=== PATIENT | male | born 1975 | race Caucasian/White ===

== ENCOUNTER 2018-01-24 19:35 | Emergency (ER) | payer OTHER ==
[2018-01-24] MEDS ORDERED: MAG HYDROX/AL HYDROX/SIMETH 30 ML UDC PO STA (20:14)
[2018-01-24] MEDS ORDERED: IBUPROFEN 800 MG TABLET PO STA (20:14)
--- NOTE | 2018-01-24 20:18 | ED Physician Documentation ---
PD HPI LOWER EXT INJURY - Stated complaint Stated Complaint: R KNEE PX - Chief complaint Chief Complaint: Ext Problem - History obtained from History obtained from: Patient - History of Present Illness PD HPI LOW EXT INJURY LOCATION: Right, Knee Type of injury: Other (No recent injury.) Timing - onset: Yesterday Worsened by: Moving, Other (Flexion) Associated symptoms: No: Swelling Similar symptoms before: Diagnosis (Prior history of knee injury, 2009, thought to be meniscus degeneration.) - Additional information Additional information: The patient is a 42-year-old male who presents with right knee pain. The pain started yesterday without any specific injury. He describes it as a sharp stabbing pain that is worse with bending his knee. He has a past history of knee injury in 2009, for which he has undergone MRI evaluation that he thinks showed a meniscus injury. While in triage he developed substernal chest pain. The chest pain has been subsiding rapidly over the past 10 minutes. He denies any associated shortness of breath, nausea or vomiting. He states that he has a history of similar episodes of chest pain with anxiety attacks. Review of Systems Constitutional: denies: Fever Nose: denies: Congestion Throat: denies: Sore throat Cardiac: reports: Chest pain / pressure. denies: Palpitations Respiratory: denies: Dyspnea, Cough GI: denies: Abdominal Pain, Nausea, Vomiting : denies: Dysuria Skin: denies: Rash Musculoskeletal: reports: Extremity pain (Right knee). denies: Extremity swelling, Joint swelling Neurologic: denies: Focal weakness, Numbness, Headache PD PAST MEDICAL HISTORY - Past Medical History Neuro: Head injury GI: GERD : Kidney stones Psych: Anxiety, Post traumatic stress disorder Musculoskeletal: Osteoarthritis, Chronic back pain - Allergies Allergies/Adverse Reactions: Allergies Allergy/AdvReac Type Severity Reaction Status Date / Time No Known Drug Allergies Allergy Verified 01/24/18 19:44 - Social History Does the pt smoke?: No Smoking Status: Never smoker Does the pt drink ETOH?: Yes Does the pt have substance abuse?: No PD ED PE NORMAL - Vitals Vital signs reviewed: Yes (Normal) - General General: Alert and oriented X 3, Well developed/nourished - HEENT HEENT: Atraumatic, Pharynx benign - Neck Neck: No JVD - Cardiac Cardiac: RRR, No murmur - Respiratory Respiratory: No respiratory distress, Clear bilaterally - Abdomen Abdomen: Soft, Non tender - Back Back: No CVA TTP - Derm Derm: No rash - Extremities Extremities: No edema, No calf tenderness / cord, Other (There is mild tenderness to palpation over the patella. There is no warmth, erythema, or swelling of the knee. There is no tenderness to palpation along the lateral or medial joint line. There is no ligamentous instability detected. He is able to fully extend and can flex to 90. Distal neurovascular is intact.) - Neuro Neuro: Alert and oriented X 3, No motor deficit, No sensory deficit Results - Vitals Vitals: Vital Signs - 24 hr 01/24/18 19:40 Temperature 36.8 C Heart Rate 106 H Respiratory 18 Rate Blood Pressure 127/77 O2 Saturation 99 Oxygen O2 Source Room air - EKG (time done) 20:00 Rate: Rate (enter#) (94) Rhythm: NSR [place]: Normal Intervals: Normal [place] QRS: Normal Ischemia: Normal ST segments Computer interpretation: Agree with computer - Rads (name of study) right knee Radiology: Prelim report reviewed, EMP read contemporaneously, See rad report ( No evidence of fracture, dislocation, or significant degenerative disease.) PD MEDICAL DECISION MAKING - ED course Complexity details: reviewed results, re-evaluated patient, considered differential, d/w patient ED course: The underlying cause of the patient's knee pain is not clearly elucidated at this time. Meniscus injury is a likely etiology. There is no clinical evidence of ligamentous injury, and x-ray of the knee is unremarkable. Treatment in the emergency department included administration of ibuprofen 800 mg orally and application of a knee immobilizer. I discussed with him the x- ray results, symptomatic treatment and outpatient follow-up, as well as potentially worrisome signs or symptoms that should prompt reevaluation in the emergency department. Regarding the transient chest pain he experienced at triage, I suspect anxiety reaction with possible gastroesophageal reflux. Electrocardiogram was performed and it is normal. I do not suspect cardiac etiology. Also his presentation is not suggestive of pulmonary embolus. - Sepsis Event Vital Signs: Vital Signs - 24 hr 01/24/18 19:40 Temperature 36.8 C Heart Rate 106 H Respiratory 18 Rate Blood Pressure 127/77 O2 Saturation 99 Oxygen O2 Source Room air Departure - Departure Disposition: 01 Home, Self Care Clinical Impression: Right knee pain Qualifiers: Chronicity: acute Qualified Code(s): M25.561 - Pain in right knee Condition: Stable Instructions: ED Meniscal Injury Knee Poss, ED Knee Pain [facility] Follow-Up: [facility] [Provider Group] Comments: Use the knee immobilizer if it provides comfort. Apply ice pack intermittently for the next 3 or 4 days. He continues ibuprofen, up to 800 mg 3 times daily for its anti-inflammatory effect. Follow up in the orthopedic clinic within 2 weeks. Call to schedule appointment. Return to the emergency department if you develop markedly increasing pain, swelling of your knee, or otherwise worsening symptoms.
--- NOTE | 2018-01-24 21:13 | XRAY Report ---
Procedure Date: 01/24/2018 Accession Number: [id number] / [id number] Procedure: XR - Knee 4 View RT CPT Code: FULL RESULT: EXAM: RIGHT KNEE RADIOGRAPHY EXAM DATE: 01/24/2018 08:48 PM. CLINICAL HISTORY: RIGHT KNEE PAIN. COMPARISON: None. TECHNIQUE: 4 views. FINDINGS: Bones: No fracture or focal bony lesion. Joints: No evidence of dislocation. There is patellar calcific tendinopathy at the tibial tuberosity. No evidence of joint effusion. Soft Tissues: No unexpected soft tissue findings. IMPRESSION: No evidence of fracture, dislocation, or significant degenerative disease. RADIA
[2018-01-24 21:31] VITALS: BP 130/90
== END 2018-01-24 21:32 | disposition home or self-care (01) ==
LOC: ED 19:35
DX: M25.561 Pain in right knee (principal); R07.89 Other chest pain; K21.9 Gastro-esophageal reflux disease without esophagitis; F41.9 Anxiety disorder, unspecified
CPT/HCPCS: 29530; 73564; 93005; 99283; A9270

== ENCOUNTER 2018-05-31 11:04 | Emergency (ER) | payer OTHER ==
[2018-05-31 11:18] VITALS: BP 132/74
[2018-05-31 11:42] LABS: BILIRUBIN,URINE NEGATIVE (NEGATIVE); GLUCOSE, URINE (UA) NEGATIVE (NEGATIVE); KETONES,URINE (UA) NEGATIVE (NEGATIVE); LEUKOCYTE ESTERASE, URINE SMALL (NEGATIVE); NITRITE,URINE NEGATIVE (NEGATIVE); OCCULT BLOOD,URINE NEGATIVE (NEGATIVE); PROTEIN,URINE NEGATIVE (NEGATIVE); UROBILINOGEN,URINE 0.2 (NORMAL) E.U./dL (NORMAL)
[2018-05-31 11:44] LABS: CLARITY,URINE CLEAR (CLEAR)
[2018-05-31 12:10] LABS: BACTERIA,URINE Rare /HPF (None Seen); MUCUS,URINE Few Strands; RBC,URINE 0-5 /HPF (0-5); SQUAMOUS EPITHELIAL CELL,UR RARE Squamous (<= Few)
[2018-05-31] MEDS ORDERED: KETOROLAC 60 MG/2 ML VIAL IM STA (12:39)
--- NOTE | 2018-05-31 13:20 | ED Physician Documentation ---
History of Present Illness - Stated complaint Stated Complaint: MALE - Chief complaint Chief Complaint: General - Additonal information Additional information: 42-year-old male presents the emergency department with complaints of dysuria a nd left testicular pain which has progressively worsened over the past several days. The patient reports a dull ache in his testicle but denies swelling or redness. The patient reports pain with urination which has progressively worsened. The patient denies discharge. The patient denies any new sexual partners or concern for a sexually transmitted infection. Symptoms are described as moderate. No other associated symptoms.No triggering factors or relieving factors. Review of Systems Constitutional: denies: Fever, Chills Eyes: denies: Discharge Ears: denies: Ear pain Throat: denies: Dental pain / toothache Cardiac: denies: Chest pain / pressure Respiratory: denies: Cough GI: denies: Abdominal Pain, Nausea : reports: Dysuria, Testicular pain. denies: Hematuria Musculoskeletal: denies: Neck pain Neurologic: denies: Generalized weakness PD PAST MEDICAL HISTORY - Past Medical History Neuro: Head injury GI: GERD : Kidney stones Psych: Anxiety, Post traumatic stress disorder Musculoskeletal: Osteoarthritis, Chronic back pain - Present Medications Home Medications: Ambulatory Orders Medication Instructions Recorded Confirmed Allopurinol 300 mg PO 05/31/18 Cephalexin [Keflex] 500 mg PO BID #20 capsule 05/31/18 Diclofenac Sodium 25 mg PO 05/31/18 Hydrochlorothiazide 12.5 mg PO 05/31/18 05/31/18 Omeprazole 20 mg PO 05/31/18 Potassium Citrate [Potassium 15 meq PO 05/31/18 Citrate ER] buPROPion [Wellbutrin Sr] 100 mg PO BID 05/31/18 05/31/18 traZODone [Desyrel] 50 mg PO HS 05/31/18 05/31/18 - Allergies Allergies/Adverse Reactions: Allergies Allergy/AdvReac Type Severity Reaction Status Date / Time No Known Drug Allergies Allergy Verified 01/24/18 19:44 - Social History Does the pt smoke?: No Smoking Status: Never smoker Does the pt drink ETOH?: Yes Does the pt have substance abuse?: No PD ED PE NORMAL - General General: Alert and oriented X 3, No acute distress - HEENT HEENT: Atraumatic, PERRL, EOMI, Ears normal - Neck Neck: Supple, no meningeal sign - Cardiac Cardiac: RRR - Respiratory Respiratory: No respiratory distress - Derm Derm: Normal color - Extremities Extremities: No deformity - Neuro Neuro: Alert and oriented X 3, Normal speech - Psych Psych: Normal mood PD ED PE EXPANDED - Male Male : Circumcised, Skin lesions, Normal lie/cremastaric, Tenderness (The patient is tender palpation through the left testicle, there is no tenderness in the bilateral epididymis, there is no skin changes of the scrotal wall). No: Discharge, Testicular Mass Results - Vitals Vitals: Vital Signs - 24 hr 05/31/18 11:14 Temperature 37.0 C Heart Rate 86 Respiratory 16 Rate Blood Pressure 132/74 H O2 Saturation 98 Oxygen O2 Source Room air - Labs Labs: Laboratory Tests 05/31/18 11:29 Urine Color YELLOW Urine Clarity CLEAR Urine pH 7.0 Ur Specific [place] 1.025 Urine Protein NEGATIVE Urine Glucose (UA) NEGATIVE Urine Ketones NEGATIVE Urine Occult Blood NEGATIVE Urine Nitrite NEGATIVE Urine Bilirubin NEGATIVE Urine Urobilinogen 0.2 (NORMAL) Ur Leukocyte Esterase SMALL H Urine RBC 0-5 Urine WBC >25 H Ur Squamous Epith Cells RARE Squamous Urine Bacteria Rare Urine Mucus Few Strands Ur Microscopic Review INDICATED Urine Culture Comments INDICATED - Rads (name of study) US Radiology: Final report received, See rad report (IMPRESSION: Small bilateral hydroceles with no evidence of torsion. ) PD MEDICAL DECISION MAKING - ED course ED course: The patient's ultrasound shows no evidence of torsion or epididymitis. The yaneli ent's urinalysis is concerning for an infection, this could be early epididymitis given the patient's history of prior episodes of epididymitis. Presently, the patient appears appropriate for discharge with outpatient management. The patient will be started on a course of antibiotics. The patient will follow up with the [facility] for referral to urology. I discussed warning signs and recommended returning to the emergency department for any worsening or any concerns. Departure - Departure Disposition: 01 Home, Self Care Clinical Impression: Testicular pain, left Acute cystitis Qualifiers: Hematuria presence: without hematuria Qualified Code(s): N30.00 - Acute cystitis without hematuria Condition: Good Instructions: ED UTI Cystitis Male, Varicocele, ED Epididymitis Prescriptions: Cephalexin [Keflex] 500 mg PO BID #20 capsule Comments: [facility]. Please asked them to arrange for an outpatient referral to urology to further investigate your pain. Please return to the emergency department immediately for worsening symptoms or any concerns.
--- NOTE | 2018-05-31 14:18 | Ultrasound Report ---
Reason: pain Procedure Date: 05/31/2018 Accession Number: [id number] / [id number] Procedure: US - Testicle w/Doppler Limited CPT Code: FULL RESULT: EXAM: SCROTAL ULTRASOUND EXAM DATE: 05/31/2018 01:55 PM. CLINICAL HISTORY: Pain. COMPARISON: None. TECHNIQUE: Real-time scanning was performed with static images obtained. Color-flow images were utilized. FINDINGS: Right: Testis: 4.5 x 2.5 x 2.8 cm. Normal size and echotexture. No mass, calcification, or abnormal blood flow. Epididymis: 1.2 x 1.0 cm. Normal size and echotexture. No mass or abnormal blood flow. Hydrocele: Small. Varicocele: None. Left: Testis: 4.4 x 2.6 x 3.1 cm. Normal size and echotexture. No mass, calcification, or abnormal blood flow. Epididymis: 1.1 x 0.8 cm. Normal size and echotexture. No mass or abnormal blood flow. Hydrocele: Small. Varicocele: None. IMPRESSION: Small bilateral hydroceles with no evidence of torsion. RADIA
[2018-05-31] MEDS ORDERED: cephALEXin 250 MG CAPSULE PO STA (14:35)
== END 2018-05-31 15:17 | disposition home or self-care (01) ==
LOC: ED 11:04
DX: N30.00 Acute cystitis without hematuria (principal); N50.812 Left testicular pain
CPT/HCPCS: 76870; 81001; 87086; 87491; 87591; 93976; 96372; 99283; A9270; 81003

== ENCOUNTER 2018-10-02 06:08 | Emergency (ER) | payer OTHER ==
--- NOTE | 2018-10-02 06:27 | ED Physician Documentation ---
PD HPI BACK PAIN - Stated complaint Stated Complaint: LEG/BACK PX - Chief complaint Chief Complaint: Back Pain - History obtained from History obtained from: Patient - History of Present Illness Timing - onset: How many weeks ago (2) Timing - duration: Weeks Timing - details: Gradual onset, Waxing and waning Pain level now: 8 Quality: Pain, Spasm Associated symptoms: No: Fever, Weakness, Numbness, Incontinent of urine, Unable to urinate, Hematuria, Incontinent of stool Improves with: Rest Worsened by: Movement Recently seen: Not recently seen - Additional information Additional information: Patient complains of two weeks of right thigh pain, atraumatic. A few hours ago, he woke with low back pain radiating to bilateral lower extremities. Review of Systems Constitutional: reports: Reviewed and negative GI: reports: Reviewed and negative : denies: Dysuria, Frequency, Unable to Void, Incontinent, Hematuria Skin: denies: Rash Musculoskeletal: reports: Back pain, Extremity pain. denies: Neck pain Neurologic: reports: Reviewed and negative PD PAST MEDICAL HISTORY - Past Medical History Past Medical History: Yes Cardiovascular: None Respiratory: None Neuro: Head injury Endocrine/Autoimmune: None GI: GERD : Kidney stones HEENT: None Psych: Anxiety, Post traumatic stress disorder Musculoskeletal: Osteoarthritis, Chronic back pain Derm: None - Past Surgical History Past Surgical History: No - Present Medications Home Medications: Ambulatory Orders Medication Instructions Recorded Confirmed Allopurinol 300 mg PO DAILY 05/31/18 10/02/18 Diclofenac Sodium 25 mg PO DAILY 05/31/18 10/02/18 Hydrochlorothiazide 12.5 mg PO DAILY 05/31/18 10/02/18 Omeprazole 20 mg PO DAILY 05/31/18 10/02/18 Potassium Citrate [Potassium 15 meq PO DAILY 05/31/18 10/02/18 Citrate ER] buPROPion [Wellbutrin Sr] 100 mg PO BID 05/31/18 10/02/18 traZODone [Desyrel] 50 mg PO HS 05/31/18 10/02/18 Oxycodone HCl/Acetaminophen 1 - 2 each PO Q6H PRN #20 tablet 10/02/18 [Percocet 5-325 mg Tablet] Prazosin HCl 1 mg PO DAILY 10/02/18 10/02/18 diazePAM [Valium] 5 mg PO TID PRN #15 tablet 10/02/18 - Allergies Allergies/Adverse Reactions: Allergies Allergy/AdvReac Type Severity Reaction Status Date / Time No Known Drug Allergies Allergy Verified 10/02/18 06:17 - Social History Does the pt smoke?: No Smoking Status: Never smoker Does the pt drink ETOH?: Yes Does the pt have substance abuse?: No - Immunizations Immunizations are current?: Yes - POLST Patient has POLST: No PD ED PE NORMAL - Vitals Vital signs reviewed: Yes - General General: Alert and oriented X 3, Well developed/nourished, Other (appears to be in waxing and waning visibly painful distress ) - Neck Neck: Supple, no meningeal sign - Cardiac Cardiac: RRR, No murmur - Respiratory Respiratory: No respiratory distress, Clear bilaterally - Abdomen Abdomen: Soft, Non tender, Non distended - Back Back: No CVA TTP, No spinal TTP - Derm Derm: Normal color, Warm and dry - Extremities Extremities: No tenderness to palpate, Normal ROM s pain, No edema, No calf tenderness / cord - Neuro Neuro: Alert and oriented X 3, industry analyst 2-12 intact, No motor deficit, No sensory deficit Results - Vitals Vitals: Vital Signs - 24 hr 10/02/18 10/02/18 06:10 07:49 Temperature 36.0 C L Heart Rate 104 H 76 Respiratory 18 16 Rate Blood Pressure 142/80 H 136/76 H O2 Saturation 98 99 Oxygen O2 Source Room air PD MEDICAL DECISION MAKING - ED course Complexity details: reviewed results, re-evaluated patient, considered differential, d/w patient ED course: atraumatic low back pain that radiates down bilateral lower extremities. No signs or symptoms to suggest cauda equina syndrome; denies saddle anesthesia, urinary or bowel incontinence, weakness. On reevaluation, after po Decadron and Valium, IM dilaudid, patient is able to ambulate without assistance and minimal discomfort and is comfortable with discharge, will follow up with primary care provider, and return if worse in any way. Departure - Departure Disposition: 01 Home, Self Care Clinical Impression: Back pain Condition: Good Instructions: NARCOTIC, Oral, ED Sciatica Prescriptions: diazePAM [Valium] 5 mg PO TID PRN #15 tablet PRN Reason: Spasms Oxycodone HCl/Acetaminophen [Percocet 5-325 mg Tablet] 1 - 2 each PO Q6H PRN #20 tablet PRN Reason: pain Discharge Date/Time: 10/02/18 07:56
[2018-10-02] MEDS ORDERED: HYDROmorphone 1 MG/ML CARPUJECT IM STA (06:49)
[2018-10-02] MEDS ORDERED: DEXAMETHASONE 10 MG/ML VIAL PO STA (06:53)
[2018-10-02] MEDS ORDERED: CHERRY SYRUP 10 ML UDC PO ONE (06:53)
[2018-10-02] MEDS ORDERED: diazePAM 5 MG TABLET PO STA ×2 (06:53→07:01)
[2018-10-02 07:51] VITALS: BP 136/76
== END 2018-10-02 07:56 | disposition home or self-care (01) ==
LOC: ED 06:08
DX: M54.5 Low back pain (principal); G89.29 Other chronic pain
CPT/HCPCS: 96372; 99283; A9270; J1170

== ENCOUNTER 2020-08-08 19:11 | Emergency (ER) | payer OTHER ==
[2020-08-08] MEDS ORDERED: BUFFERED LIDOCAINE 10 ML SYRINGE SUBQ STA (20:23)
[2020-08-08] MEDS ORDERED: cephALEXin 250 MG CAPSULE PO STA (21:04)
[2020-08-08] MEDS ORDERED: HYDROcod/ACETAM 5/325 MG TABLET PO STA (21:04)
--- NOTE | 2020-08-08 21:09 | ED Physician Documentation ---
History of Present Illness - Stated complaint Stated Complaint: RIGHT HAND LAC - Chief complaint Chief Complaint: Laceration - Additonal information Additional information: 44-year-old right-handed male presents the emergency department for a laceration to the fat pad of his right index finger that was sustained when he was using a man and a line at home. He essentially cut the fat pad off circumferentially leaving a 1 cm round defect. Patient reports tetanus is up-to-date. He did report that he nearly fainted due to the pain. Review of Systems Constitutional: reports: Reviewed and negative Ears: reports: Reviewed and negative Nose: reports: Reviewed and negative Cardiac: reports: Reviewed and negative Respiratory: reports: Reviewed and negative GI: reports: Reviewed and negative : reports: Reviewed and negative Skin: reports: Laceration (s) (right index finger) PD PAST MEDICAL HISTORY - Past Medical History Cardiovascular: None Respiratory: None Neuro: Head injury Endocrine/Autoimmune: None GI: GERD : Kidney stones HEENT: None Psych: Anxiety, Post traumatic stress disorder Musculoskeletal: Osteoarthritis, Chronic back pain Derm: None - Past Surgical History Past Surgical History: No - Present Medications Home Medications: Ambulatory Orders Medication Instructions Recorded Confirmed Hydrochlorothiazide 12.5 mg PO DAILY 05/31/18 08/08/20 Omeprazole 20 mg PO DAILY 05/31/18 08/08/20 Potassium Citrate [Potassium 15 meq PO DAILY 05/31/18 08/08/20 Citrate ER] allopurinoL [Allopurinol] 300 mg PO DAILY 05/31/18 08/08/20 buPROPion [Wellbutrin Sr] 100 mg PO BID 05/31/18 08/08/20 traZODone [Desyrel] 50 mg PO HS 05/31/18 08/08/20 Prazosin HCl 1 mg PO DAILY 10/02/18 08/08/20 HYDROcod/ACETAM 5/325 [[place] 5/325] 1 each PO BID PRN #5 08/08/20 Melatonin 6 mg PO HS 08/08/20 08/08/20 cephALEXin [Keflex] 500 mg PO Q8H #9 08/08/20 - Allergies Allergies/Adverse Reactions: Allergies Allergy/AdvReac Type Severity Reaction Status Date / Time No Known Drug Allergies Allergy Verified 08/08/20 19:39 - Social History Does the pt smoke?: No Smoking Status: Never smoker Does the pt drink ETOH?: Yes Does the pt have substance abuse?: No - Immunizations Immunizations are current?: Yes - POLST Patient has POLST: No PD ED PE EXPANDED - Extremities Extremities: Right finger(s) (Fat pad of the right index finger is missing. There is about a 1 cm round deficit with exposed subcutaneous tissue and moderate capillary arteriole bleeding.) Results - Vitals Vitals: Vital Signs - 24 hr 08/08/20 19:39 Temperature 36.5 C Heart Rate 100 Respiratory 19 Rate Blood Pressure 141/78 H O2 Saturation 100 Oxygen O2 Source Room air Procedures - Laceration (location) index finger right Length in cm: 4 Wound type: Superficial Neurovascular status: Sensory intact, Motor intact Tendon involvement: Tendon intact Anesthesia: Lidocaine 1% Wound preparation: Chlorhexadine Skin layer closure: Interrupted, Sutures - enter # (9), Other (The fat pad was brought into the emergency department with the patient and was sewn into place over the defect.) Other: Patient tolerated well, No complications PD MEDICAL DECISION MAKING - ED course Complexity details: reviewed results, re-evaluated patient, considered differential, d/w patient ED course: 44-year-old male presents emergency department for a laceration sustained this evening when using a balloon at home. He essentially amputated the fat pad from the distal tip of the index finger. Because he presented with a fat pad/skin I was able to sew this back into place using 9 sutures. Discussed with patient that there is a possibility that the skin repair may not take. In that case it would have to heal from the inside out. Patient will be given a limited prescription of [place] for pain. Emergent return precautions and wound care discussed Departure - Departure Disposition: Home, Self Care Clinical Impression: Finger laceration Qualifiers: Encounter type: initial encounter Finger: index finger Damage to nail status: without damage Foreign body presence: without foreign body Laterality: right Qualified Code(s): S61.210A - Laceration without foreign body of right index finger without damage to nail, initial encounter Condition: Stable Record reviewed to determine appropriate education?: Yes Prescriptions: cephALEXin [Keflex] 500 mg PO Q8H #9 HYDROcod/ACETAM 5/325 [[place] 5/325] 1 each PO BID PRN #5 PRN Reason: Pain Comments: Ray the fat pad of your finger was essentially amputated. We did sew it back into place. There is a possibility however that it will not take and could . In this case it will have to heal from the inside out. I have written a prescription for [place] to help with pain. Do not drive if taking this. Please keep your finger elevated for the next 48 to 72 hours. This will help with swelling and pain. Please fill the prescription for the antibiotics and take for the next 3 days. In 24 hours you may remove your dressing gently wash with warm soap and water apply antibiotic ointment nonstick gauze and then a bandage. Suture should be removed in 7 to 10 days. If at any point you have concerns of infection, fever redness swelling milky drainage or increased pain please return to the ER for a second look
[2020-08-08 21:25] VITALS: BP 131/85
== END 2020-08-08 21:23 | disposition home or self-care (01) ==
LOC: ED 19:11
DX: S61.210A Laceration without foreign body of right index finger without damage to nail, initial encounter (principal); W27.4XXA Contact with kitchen utensil, initial encounter; Y93.G1 Activity, food preparation and clean up; Y92.009 Unspecified place in unspecified non-institutional (private) residence as the place of occurrence of the external cause
CPT/HCPCS: 12042; 99281; 99282; A9270

== ENCOUNTER 2020-09-05 10:07 | Outpatient (CLI) | payer OTHER | END 2020-09-05 10:08 | disposition EMS.NT | LOC: EMS 10:07 | DX: R55 Syncope and collapse (principal) ==

== ENCOUNTER 2020-09-06 14:22 | Outpatient (CLI) | payer OTHER | END 2020-09-06 14:23 | disposition home or self-care (01) | LOC: CAM 14:22 | DX: G89.4 Chronic pain syndrome (principal) | CPT/HCPCS: 97810; 97811 ==

== ENCOUNTER 2020-09-13 13:11 | Outpatient (CLI) | payer OTHER | END 2020-09-13 13:12 | disposition home or self-care (01) | LOC: CAM 13:11 | DX: G89.4 Chronic pain syndrome (principal) | CPT/HCPCS: 97810; 97811 ==

== ENCOUNTER → 2020-09-20 | Outpatient (CLI) | payer OTHER ==
--- OUTSIDE RECORDS SUMMARY | 2020-10-03 00:01 | EXTERNAL MEDICAL SUMMARY RPT | Continuity of Care Document ---
:1975 Demographics Phone Unavailable Preferred Language Unknown Marital Status Unknown Confucianism Affiliation Unknown Race Unknown Ethnic Group Unknown Author Organization [facility] Address [address] [place] [address] Phone Social History date description facility [id number]
== END ==
LOC: CAM 16:15
DX: G89.4 Chronic pain syndrome (principal)

== ENCOUNTER 2020-10-04 16:29 | Outpatient (CLI) | payer OTHER | END 2020-10-04 16:30 | disposition home or self-care (01) | LOC: CAM 16:29 | DX: G89.4 Chronic pain syndrome (principal) | CPT/HCPCS: 97810; 97811 ==

== ENCOUNTER 2020-10-11 17:38 | Outpatient (CLI) | payer OTHER | END 2020-10-11 17:39 | disposition home or self-care (01) | LOC: CAM 17:38 | DX: G89.4 Chronic pain syndrome (principal) | CPT/HCPCS: 97813; 97814 ==

== ENCOUNTER 2020-11-01 14:34 | Outpatient (CLI) | payer OTHER | END 2020-11-01 14:35 | disposition home or self-care (01) | LOC: CAM 14:34 | PROVIDERS: ATTEND Nurse Practitioner Family | DX: G89.4 Chronic pain syndrome (principal) | CPT/HCPCS: 97813; 97814 ==

== ENCOUNTER 2020-11-08 14:12 | Outpatient (CLI) | payer OTHER | END 2020-11-08 14:13 | disposition home or self-care (01) | LOC: CAM 14:12 | PROVIDERS: ATTEND Nurse Practitioner Family | DX: G89.4 Chronic pain syndrome (principal) | CPT/HCPCS: 97810; 97811 ==

== ENCOUNTER 2020-11-15 14:15 | Outpatient (CLI) | payer OTHER | END 2020-11-15 14:16 | disposition home or self-care (01) | LOC: CAM 14:15 | PROVIDERS: ATTEND Nurse Practitioner Family | DX: G89.4 Chronic pain syndrome (principal) | CPT/HCPCS: 97811; 97813 ==

== ENCOUNTER 2020-12-06 16:29 | Outpatient (CLI) | payer OTHER | END 2020-12-06 16:30 | disposition home or self-care (01) | LOC: CAM 16:29 | PROVIDERS: ATTEND Nurse Practitioner Family | DX: G89.4 Chronic pain syndrome (principal) | CPT/HCPCS: 97813; 97814 ==

== ENCOUNTER 2020-12-13 16:26 | Outpatient (CLI) | payer OTHER | END 2020-12-13 16:27 | disposition home or self-care (01) | LOC: CAM 16:26 | PROVIDERS: ATTEND Nurse Practitioner Family | DX: G89.4 Chronic pain syndrome (principal) | CPT/HCPCS: 97813; 97814 ==

== ENCOUNTER 2022-03-13 21:48 | Emergency (ER) | payer OTHER ==
[2022-03-13 22:46] LABS: BASOPHILS # (AUTO) 0.1 10^3/uL (0.0-0.1); BASOPHILS % (AUTO) 0.7 %; EOSINOPHILS # (AUTO) 0.4 10^3/uL (0.0-0.7); EOSINOPHILS % (AUTO) 3.8 %; HGB - HEMOGLOBIN 14.1 g/dL (14.0-18.0); LYMPHOCYTES # (AUTO) 2.6 10^3/uL (1.5-3.5); LYMPHOCYTES % (AUTO) 27.7 %; MEAN CORPUSCULAR HEMOGLOBIN 29.4 pg (27.0-31.0); MEAN CORPUSCULAR HGB CONC 35.3 g/dL (32.0-36.0); MEAN CORPUSCULAR VOLUME 83.3 fL (80.0-94.0); MEAN PLATELET VOLUME 8.5 fL (7.4-11.4); MONOCYTES # (AUTO) 0.8 10^3/uL (0.0-1.0); MONOCYTES % (AUTO) 8.9 %; NEUTROPHILS # (AUTO) 5.6 10^3/uL (1.5-6.6); NEUTROPHILS % (AUTO) 58.6 %; PLT - PLATELET COUNT 302 10^3/uL (130-450); RED CELL DISTRIBUTION WIDTH 12.5 % (12.0-15.0); WHITE BLOOD COUNT 9.5 x10^3/uL (4.8-10.8)
[2022-03-13 23:00] LABS: ALBUMIN 4.4 g/dL (3.2-5.5); ALBUMIN/GLOBULIN RATIO 1.6 (1.0-2.2); BILIRUBIN,TOTAL 0.9 mg/dL (0.2-1.0); CREATININE 1.1 mg/dL (0.6-1.2); POTASSIUM 3.3 mmol/L (3.5-5.0); TOTAL PROTEIN 7.2 g/dL (6.7-8.2)
[2022-03-13 23:10] LABS: CALCIUM 9.2 mg/dL (8.5-10.3)
[2022-03-13] MEDS ORDERED: KETOROLAC 15 MG/ML VIAL IVP STA (23:22)
--- NOTE | 2022-03-13 23:25 | XRAY Report ---
PROCEDURE: Chest 1 View X-Ray INDICATIONS: L CHEST PAIN TECHNIQUE: One view of the chest was acquired. COMPARISON: None. FINDINGS: Surgical changes and devices: None. Lungs and pleura: Evaluation limited by artifact in the left lung base laterally. There are suspecte d indistinct opacities peripherally in the left lung base consistent with consolidation or atelectasi s. Right lung is clear. No definite pleural effusions. No pneumothorax. Mediastinum: Mediastinal contours appear normal. Heart size is normal. Bones and chest wall: No suspicious bony lesions. Overlying soft tissues appear unremarkable. IMPRESSION: 1. Limited study due to artifact laterally in the left lung base. 2. Suspected peripheral opacities in the left lung base which may represent consolidation or atelecta sis. Consider a repeat PA and lateral study if clinical concern persists. Reviewed by: Rei Dukes MD on 03/13/2022 11:23 PM PDT Approved by: Rei Dukes MD on 03/13/2022 11:23 PM PDT Station ID: [id number]
--- NOTE | 2022-03-14 00:27 | ED Physician Documentation ---
PD HPI CHEST PAIN - Stated complaint Stated Complaint: CHEST PX - Chief complaint Chief Complaint: Cardiac - History obtained from History obtained from: Patient - History of Present Illness Timing - onset: Today, Other (just prior to arrival) Timing - onset during: Rest - Additional information Additional information: 46-year-old male with history of obstructive sleep apnea presents by EMS from work for sudden onset sharp, stabbing, nonradiating, constant left-sided chest pain that began while at rest. Patient states that he has felt this chest pain intermittently in the past, but is never seen a doctor for it. Nothing makes it better or worse. Today was the worst it has ever been and so he called 911 and presented for evaluation. EMS gave aspirin, nitroglycerin, fentanyl. EKG NSR en route. They state the fentanyl brought the pain down from an 8 to a 5. Patient continues to endorse sharp chest pain on arrival, denies shortness of breath, cough, recent illnesses. Denies known family history of heart disease or early cardiac . Review of Systems Ten Systems: 10 systems reviewed and negative Constitutional: denies: Fever, Chills Cardiac: reports: Chest pain / pressure. denies: Palpitations, Pedal edema, Calf pain Respiratory: denies: Dyspnea, Cough, Wheezing Skin: denies: Rash, Lesions, Abrasion (s) PD PAST MEDICAL HISTORY - Past Medical History Past Medical History: Yes Cardiovascular: None Respiratory: None Neuro: Head injury Endocrine/Autoimmune: None GI: GERD : Kidney stones HEENT: None Psych: Anxiety, Post traumatic stress disorder Musculoskeletal: Osteoarthritis, Chronic back pain Derm: None - Past Surgical History Past Surgical History: No - Present Medications Home Medications: Ambulatory Orders Medication Instructions Recorded Confirmed Omeprazole 20 mg PO DAILY 05/31/18 08/08/20 Potassium Citrate [Potassium 15 meq PO DAILY 05/31/18 08/08/20 Citrate ER] allopurinoL [Allopurinol] 300 mg PO DAILY 05/31/18 08/08/20 buPROPion [Wellbutrin Sr] 100 mg PO BID 05/31/18 08/08/20 hydroCHLOROthiazide 12.5 mg PO DAILY 05/31/18 08/08/20 [Hydrochlorothiazide] traZODone [Desyrel] 50 mg PO HS 05/31/18 08/08/20 Prazosin HCl 1 mg PO DAILY 10/02/18 08/08/20 HYDROcod/ACETAM 5/325 [[place] 5/325] 1 each PO BID PRN #5 08/08/20 Melatonin 6 mg PO HS 08/08/20 08/08/20 cephALEXin [Keflex] 500 mg PO Q8H #9 08/08/20 - Allergies Allergies/Adverse Reactions: Allergies Allergy/AdvReac Type Severity Reaction Status Date / Time No Known Drug Allergies Allergy Verified 03/13/22 21:57 - Social History Does the pt smoke?: No Smoking Status: Never smoker Does the pt drink ETOH?: Yes Does the pt have substance abuse?: No - Immunizations Immunizations are current?: Yes - POLST Patient has POLST: No PD ED PE NORMAL - Vitals Vital signs reviewed: Yes - General General: Alert and oriented X 3, No acute distress, Well developed/nourished - HEENT HEENT: Atraumatic, PERRL, EOMI - Neck Neck: Supple, no meningeal sign, No bony TTP - Cardiac Cardiac: RRR, No murmur, Strong equal pulses - Respiratory Respiratory: No respiratory distress, Clear bilaterally - Abdomen Abdomen: Soft, Non tender, Non distended - Derm Derm: Normal color, Warm and dry, No rash - Extremities Extremities: No deformity, No tenderness to palpate, Normal ROM s pain, No edema - Neuro Neuro: Alert and oriented X 3, tray filler 2-12 intact, No motor deficit, No sensory deficit - Psych Psych: Normal mood, Normal affect Results - Vitals Vitals: Vital Signs - 24 hr 03/13/22 03/13/22 03/14/22 21:57 22:01 00:01 Temperature 36.5 C 36.5 C Heart Rate 90 90 87 Respiratory 16 16 12 Rate Blood Pressure 141/92 H 141/92 H 128/97 H O2 Saturation 98 98 100 03/14/22 01:07 Temperature 36.5 C Heart Rate 87 Respiratory 12 Rate Blood Pressure 128/97 H O2 Saturation 98 Oxygen O2 Source Room air - EKG (time done) 2158 Rate: Rate (enter#) (88) Rhythm: NSR [place]: Normal Intervals: Normal [place] QRS: Normal Ischemia: Normal ST segments - Labs Labs: Laboratory Tests 03/13/22 03/13/22 03/13/22 22:44 22:44 22:44 WBC 9.5 RBC 4.80 Hgb 14.1 Hct 40.0 L MCV 83.3 MCH 29.4 MCHC 35.3 RDW 12.5 Plt Count 302 MPV 8.5 Neut # (Auto) 5.6 Lymph # (Auto) 2.6 [place] # (Auto) 0.8 Eos # (Auto) 0.4 Baso # (Auto) 0.1 Absolute Nucleated RBC 0.00 Nucleated RBC % 0.0 Sodium 140 Potassium 3.3 L Chloride 103 Carbon Dioxide 29 Anion Gap 8.0 BUN 9 Creatinine 1.1 Estimated GFR (MDRD) 73 L Glucose 103 H Calcium 9.2 Total Bilirubin 0.9 AST 26 ALT 14 Alkaline Phosphatase 66 Troponin I High Sens 2.8 Total Protein 7.2 Albumin 4.4 Globulin 2.8 Albumin/Globulin Ratio 1.6 03/13/22 23:56 WBC RBC Hgb Hct MCV MCH MCHC RDW Plt Count MPV Neut # (Auto) Lymph # (Auto) [place] # (Auto) Eos # (Auto) Baso # (Auto) Absolute Nucleated RBC Nucleated RBC % Sodium Potassium Chloride Carbon Dioxide Anion Gap BUN Creatinine Estimated GFR (MDRD) Glucose Calcium Total Bilirubin AST ALT Alkaline Phosphatase Troponin I High Sens 2.9 Total Protein Albumin Globulin Albumin/Globulin Ratio PD MEDICAL DECISION MAKING - ED course Complexity details: reviewed results, re-evaluated patient, considered differential, d/w patient, d/w family ED course: Atypical sounding chest pain, patient has few risk factors for coronary disease. EKG sinus rhythm without ischemic findings. Chest x-ray shows possible inf iltrates in the left side, however there is rotation in the patient's posture, additionally patient has no symptoms that are consistent with pulmonary disease, he is denying any and all shortness of breath, cough, or pleuritic pain. Patient states he will call his PCP first thing in the morning for a follow up appointment. Counseled use of Tylenol and Motrin as needed for pain. Patient discharged with his in stable condition Departure - Departure Disposition: 01 Home, Self Care Clinical Impression: Chest pain Condition: Stable Instructions: ED Chest Pain Atypical Unkn Cause Comments: You are seen and evaluated today for chest pain. Your EKG showed no signs of heart attack, your x-ray was normal, and we took 2 troponin measurements, which were normal. Take Tylenol and Motrin as needed for pain. Please follow-up with your primary care physician. Discharge Date/Time: 03/14/22 00:55
[2022-03-14 01:05] VITALS: BP 128/97
== END 2022-03-14 00:55 | disposition home or self-care (01) ==
LOC: EDUNIT# → ED 21:48
DX: R07.9 Chest pain, unspecified (principal)
CPT/HCPCS: 36415; 80053; 84484; 85025; 93005; 96374; 99284

== ENCOUNTER 2022-06-13 18:41 | Outpatient (CLI) | payer OTHER | END 2022-06-13 18:42 | disposition critical access hospital (66) | LOC: EMS 18:41 | DX: R10.12 Left upper quadrant pain (principal) | CPT/HCPCS: A0425; A0427 ==

== ENCOUNTER 2022-06-13 19:26 | Emergency (ER) | payer OTHER ==
[2022-06-13] MEDS ORDERED: MAG HYDROX/AL HYDROX/SIMETH 30 ML UDC PO STA (19:37)
[2022-06-13] MEDS ORDERED: HYDROmorphone 1 MG/ML CARPUJECT IVP STA (19:37)
--- NOTE | 2022-06-13 19:37 | ED Physician Documentation ---
PD HPI ABD PAIN - Stated complaint Stated Complaint: ABD PX - History obtained from History obtained from: Patient, EMS - Additional information Additional information: 46-year-old gentleman with history of anxiety, depression, kidney stones, and multiple bone and joint issues presents with sudden onset left upper quadrant pain starting about an hour ago. It comes in waves. He received fentanyl, 100 mcg from EMS on the way here with improvement but not resolution. He states he is never had this before. It is not similar to prior kidney stone pain. Denies nausea, fevers, chest pain, or changes in his bowel movements. No history of chest or abdominal surgeries but has had multiple orthopedic surgeries in the past. Review of Systems Ten Systems: 10 systems reviewed and negative Constitutional: reports: Reviewed and negative Cardiac: reports: Reviewed and negative Respiratory: reports: Reviewed and negative PD PAST MEDICAL HISTORY - Past Medical History Cardiovascular: None Respiratory: None Neuro: Head injury Endocrine/Autoimmune: None GI: GERD : Kidney stones HEENT: None Psych: Anxiety, Post traumatic stress disorder Musculoskeletal: Osteoarthritis, Chronic back pain Derm: None - Past Surgical History Past Surgical History: No - Present Medications Home Medications: Ambulatory Orders Medication Instructions Recorded Confirmed Omeprazole 20 mg PO DAILY 05/31/18 08/08/20 Potassium Citrate [Potassium 15 meq PO DAILY 05/31/18 08/08/20 Citrate ER] allopurinoL [Allopurinol] 300 mg PO DAILY 05/31/18 08/08/20 buPROPion [Wellbutrin Sr] 100 mg PO BID 05/31/18 08/08/20 hydroCHLOROthiazide 12.5 mg PO DAILY 05/31/18 08/08/20 [Hydrochlorothiazide] traZODone [Desyrel] 50 mg PO HS 05/31/18 08/08/20 Prazosin HCl 1 mg PO DAILY 10/02/18 08/08/20 Melatonin 6 mg PO HS 08/08/20 08/08/20 - Allergies Allergies/Adverse Reactions: Allergies Allergy/AdvReac Type Severity Reaction Status Date / Time No Known Drug Allergies Allergy Verified 06/13/22 19:40 - Social History Does the pt smoke?: No Smoking Status: Never smoker Does the pt drink ETOH?: Yes Does the pt have substance abuse?: No - Immunizations Immunizations are current?: Yes - POLST Patient has POLST: No PD ED PE NORMAL - Vitals Vital signs reviewed: Yes - General General: Alert and oriented X 3, Other (Clutching his left upper quadrant in pain) - HEENT HEENT: PERRL, EOMI - Neck Neck: Supple, no meningeal sign, No bony TTP - Cardiac Cardiac: RRR, No murmur - Respiratory Respiratory: No respiratory distress, Clear bilaterally - Abdomen Abdomen: Normal bowel sounds, Soft, Non tender - Back Back: No CVA TTP, No spinal TTP - Derm Derm: Normal color, Warm and dry - Extremities Extremities: No edema, No calf tenderness / cord - Neuro Neuro: Alert and oriented X 3, Normal speech Results - Vitals Vitals: Vital Signs - 24 hr 06/13/22 06/13/22 06/13/22 19:36 20:24 20:31 Temperature 37.0 C Heart Rate 82 73 84 Respiratory 26 H 17 16 Rate Blood Pressure 126/78 115/75 O2 Saturation 96 98 98 06/13/22 06/13/22 06/13/22 20:39 21:28 21:36 Temperature Heart Rate 79 95 Respiratory 16 16 16 Rate Blood Pressure 123/82 H O2 Saturation 97 96 06/13/22 06/13/22 22:02 22:17 Temperature Heart Rate 82 Respiratory 17 16 Rate Blood Pressure 119/88 H O2 Saturation 96 Oxygen O2 Source Room air - EKG (time done) 2008 Rate: Rate (enter#) (86) Rhythm: NSR [place]: Normal Intervals: Normal [place] QRS: Normal Ischemia: ST elevation c/w repol - Labs Labs: Laboratory Tests 06/13/22 06/13/22 06/13/22 19:53 19:53 20:35 WBC 7.8 RBC 5.10 Hgb 14.5 Hct 43.0 MCV 84.3 MCH 28.4 MCHC 33.7 RDW 12.6 Plt Count 304 MPV 8.4 Neut # (Auto) 4.8 Lymph # (Auto) 2.1 [place] # (Auto) 0.6 Eos # (Auto) 0.3 Baso # (Auto) 0.1 Absolute Nucleated RBC 0.00 Nucleated RBC % 0.0 Sodium 136 Potassium 3.6 Chloride 102 Carbon Dioxide 26 Anion Gap 8.0 BUN 10 Creatinine 1.2 Estimated GFR (MDRD) 66 L Glucose 92 Calcium 8.8 Total Bilirubin 0.7 AST 18 ALT 13 Alkaline Phosphatase 55 Total Protein 7.3 Albumin 4.1 Globulin 3.2 Albumin/Globulin Ratio 1.3 Lipase 32 Urine Color YELLOW Urine Clarity CLEAR Urine pH 8.0 H Ur Specific [place] 1.015 Urine Protein NEGATIVE Urine Glucose (UA) NEGATIVE Urine Ketones NEGATIVE Urine Occult Blood NEGATIVE Urine Nitrite NEGATIVE Urine Bilirubin NEGATIVE Urine Urobilinogen 0.2 (NORMAL) Ur Leukocyte Esterase TRACE H Urine RBC None Seen Urine WBC 4-5 Ur Squamous Epith Cells RARE Squamous Urine Bacteria Few Ur Microscopic Review INDICATED Urine Culture Comments INDICATED PD Medical Decision Making - ED course ED course: 46-year-old gentleman with left upper quadrant pain. EKG nonischemic. Labs unremarkable with normal CBC and chemistries. Pain-free after milligram of Dilaudid and a GI cocktail. CT angiography of the abdomen pending on shift change, care to Dr. Moyer at 10 PM shift change to follow-up on same and reevaluate. Departure - Departure Clinical Impression: Acute abdominal pain Condition: Stable Instructions: ED Abdominal Pain Unkn Cause Male
[2022-06-13] MEDS ORDERED: LIDOCAINE VISCOUS 2% 15 ML UDC MM STA (19:38)
[2022-06-13 20:03] LABS: BASOPHILS # (AUTO) 0.1 10^3/uL (0.0-0.1); BASOPHILS % (AUTO) 0.6 %; EOSINOPHILS # (AUTO) 0.3 10^3/uL (0.0-0.7); EOSINOPHILS % (AUTO) 3.5 %; HGB - HEMOGLOBIN 14.5 g/dL (14.0-18.0); LYMPHOCYTES # (AUTO) 2.1 10^3/uL (1.5-3.5); LYMPHOCYTES % (AUTO) 27.1 %; MEAN CORPUSCULAR HEMOGLOBIN 28.4 pg (27.0-31.0); MEAN CORPUSCULAR HGB CONC 33.7 g/dL (32.0-36.0); MEAN CORPUSCULAR VOLUME 84.3 fL (80.0-94.0); MEAN PLATELET VOLUME 8.4 fL (7.4-11.4); MONOCYTES # (AUTO) 0.6 10^3/uL (0.0-1.0); MONOCYTES % (AUTO) 7.4 %; NEUTROPHILS # (AUTO) 4.8 10^3/uL (1.5-6.6); NEUTROPHILS % (AUTO) 61.3 %; PLT - PLATELET COUNT 304 10^3/uL (130-450); RED CELL DISTRIBUTION WIDTH 12.6 % (12.0-15.0); WHITE BLOOD COUNT 7.8 x10^3/uL (4.8-10.8)
[2022-06-13 20:15] LABS: ALBUMIN 4.1 g/dL (3.2-5.5); ALBUMIN/GLOBULIN RATIO 1.3 (1.0-2.2); BILIRUBIN,TOTAL 0.7 mg/dL (0.2-1.0); CALCIUM 8.8 mg/dL (8.5-10.3); CREATININE 1.2 mg/dL (0.6-1.2); POTASSIUM 3.6 mmol/L (3.5-5.0); TOTAL PROTEIN 7.3 g/dL (6.7-8.2)
[2022-06-13 20:43] LABS: BILIRUBIN,URINE NEGATIVE (NEGATIVE); GLUCOSE, URINE (UA) NEGATIVE (NEGATIVE); KETONES,URINE (UA) NEGATIVE (NEGATIVE); LEUKOCYTE ESTERASE, URINE TRACE (NEGATIVE); NITRITE,URINE NEGATIVE (NEGATIVE); OCCULT BLOOD,URINE NEGATIVE (NEGATIVE); PROTEIN,URINE NEGATIVE (NEGATIVE); UROBILINOGEN,URINE 0.2 (NORMAL) E.U./dL (NORMAL)
[2022-06-13 20:44] LABS: CLARITY,URINE CLEAR (CLEAR)
[2022-06-13 20:55] LABS: BACTERIA,URINE Few /HPF (None Seen); RBC,URINE None Seen /HPF (0-5); SQUAMOUS EPITHELIAL CELL,UR RARE Squamous (<= Few)
[2022-06-13] MEDS ORDERED: iohexoL-300 100 ML VIAL ONE (21:35)
[2022-06-13] MEDS ORDERED: iohexoL-300 100 ML VIAL IVP ONE (22:07)
--- NOTE | 2022-06-13 23:10 | CT Report ---
PROCEDURE: ANGIO ABDOMEN/PELVIS W INDICATIONS: luq pain CONTRAST: 100 ML OMNI 300 AT 4 ML/SAEC WITH SURESTART DELAY. TECHNIQUE: After the administration of intravenous contrast, 2.5 mm thick sections acquired from the diaphragm t o the symphysis. 10 mm maximum-intensity projection (MIP) reformats were then acquired. For radiati on dose reduction, the following was used: automated exposure control, adjustment of mA and/or kV ac cording to patient size. COMPARISON: None available. FINDINGS: Image quality: Excellent. Aorta: The visualized aorta is normal in caliber and contour. No intimal flaps to suggest dissection . Mesenteric arteries: Celiac trunk, superior and inferior mesenteric arteries appear patent. There ar e single renal arteries bilaterally which also appear patent. Right pelvic arteries: The common, external, and internal iliac arteries appear widely patent. Commo n femoral and visualized superficial and deep femoral arteries also appear widely patent. Left pelvic arteries: The common, external, and internal iliac arteries appear widely patent. Common femoral and visualized superficial and deep femoral arteries also appear widely patent. EXTRAVASCULAR SOFT TISSUES: Lung bases: There is mild dependent atelectasis. Heart: Heart is normal in size. ABDOMEN: Liver: No mass lesion. Gallbladder: Within normal limits without calcified gallstones. Biliary ducts: No biliary ductal dilatation. Pancreas: Unremarkable. Spleen: Normal in size. Adrenal Glands: No adrenal nodules. Kidneys and Ureters: No hydronephrosis. There are 3 clustered nonobstructing stones within the infer ior pole the right kidney, with the largest measuring up to 0.3 cm. On the left, there are a few clus tered nonobstructing stones also demonstrated within the inferior pole the largest measuring up to ap proximately 0.3 cm. There is a small left renal cortical cyst. Stomach and Bowel: Stomach, small bowel loops, and colon are normal in caliber and wall thickness. A ppendix is normal in appearance. Peritoneum: No abnormal intraperitoneal fluid. No free air. Ventral Wall: No hernia. Abdominal Nodes: No retroperitoneal or mesenteric adenopathy by size criteria. Vessels: Aorta and inferior vena cava are normal in size. PELVIS: Pelvic Organs: Unremarkable. Bladder: Unremarkable. Pelvic Nodes: No enlarged lymph nodes. Miscellaneous: No inguinal hernias are seen. Bones: There is moderate to severe degenerative disc disease at L5-S1 with minimal retrolisthesis. IMPRESSION: 1. No evidence of aortic aneurysm or dissection. 2. No stenosis or occlusion of the mesenteric arteries identified. 3. Bilateral nephrolithiasis without evidence of obstructive uropathy. Reviewed by: Rei Dukes MD on 06/13/2022 11:08 PM RUST Approved by: Rei Dukes MD on 06/13/2022 11:08 PM RUST Station ID: [id number]
[2022-06-14] MEDS ORDERED: HYDROmorphone 1 MG/ML CARPUJECT IVP STA (00:39)
[2022-06-14] MEDS ORDERED: oxyCODONE/ACET 5/325 Prepack 4 PO STA (00:39)
[2022-06-14 00:57] VITALS: BP 123/88
--- NOTE | 2022-06-14 11:00 | ED Physician Documentation ---
ED Addendum - Addendum Addendum: 06/14/22 10:58 Received sign out from Dr. Abad at end of his shift; please see his note for detailed H+P Briefly, patient presented c/o left flank pain which responded very well to 1mg IV dilaudid. Unremarkable CBC, ER abdominal panel, UA. CT A/P pending at time of sign-out. CTA A/P is without diagnostic or contributory finding. Incidentally note are bilateral renal stones (non-obstructing) as well as moderate/severe DJD L5-S1
== END 2022-06-14 01:40 | disposition home or self-care (01) ==
LOC: EDSEX → EDBD → EDUNIT# → ED 19:26
DX: R10.12 Left upper quadrant pain (principal)
CPT/HCPCS: 36415; 74174; 80053; 81001; 83690; 85025; 87086; 93005; 96374; 96376; 99283; 99284; A9270; J1170; Q9967; 81003

== ENCOUNTER 2022-09-05 14:11 | Emergency (ER) | payer OTHER ==
--- NOTE | 2022-09-05 14:35 | ED Physician Documentation ---
PD HPI HEADACHE - Stated complaint Stated Complaint: HEADACHE/CONFUSION - Chief complaint Chief Complaint: Neuro - History obtained from History obtained from: Patient, Family - Additional information Additional information: 46-year-old gentleman with history of remote TBI, depression, PTSD, and multiple back and joint issues presents for the evaluation of headache. He does not have a history of headaches per se or migraines. He does have chronic light sensitivity. For the last 2 weeks has had intermittent migratory headaches. Today he developed severe sudden onset headache around an hour ago while driving. It is just to the right of midline near the vertex rating to the occiput. He is more light sensitive than normal. There is no nausea with it. No neck stiffness. He felt warm but there were no measured fevers. PD PAST MEDICAL HISTORY - Past Medical History Cardiovascular: None Respiratory: None Neuro: Head injury Endocrine/Autoimmune: None GI: GERD : Kidney stones HEENT: None Psych: Anxiety, Post traumatic stress disorder Musculoskeletal: Osteoarthritis, Chronic back pain Derm: None - Past Surgical History Past Surgical History: No - Present Medications Home Medications: Ambulatory Orders Medication Instructions Recorded Confirmed Omeprazole 20 mg PO DAILY 05/31/18 08/08/20 Potassium Citrate [Potassium 15 meq PO DAILY 05/31/18 08/08/20 Citrate ER] allopurinoL [Allopurinol] 300 mg PO DAILY 05/31/18 08/08/20 buPROPion [Wellbutrin Sr] 100 mg PO BID 05/31/18 08/08/20 hydroCHLOROthiazide 12.5 mg PO DAILY 05/31/18 08/08/20 [Hydrochlorothiazide] traZODone [Desyrel] 50 mg PO HS 05/31/18 08/08/20 Prazosin HCl 1 mg PO DAILY 10/02/18 08/08/20 Melatonin 6 mg PO HS 08/08/20 08/08/20 Oxycodone HCl/Acetaminophen 1 - 2 each PO Q6H PRN #14 tablet 06/14/22 [Percocet 5-325 mg Tablet] Amoxicillin 500 mg PO TID #30 cap 09/05/22 Benzonatate [Tessalon] 200 mg PO TID PRN #20 cap 09/05/22 Oxycodone HCl/Acetaminophen 1 - 2 each PO Q6H PRN #10 tablet 09/05/22 [Percocet 5-325 mg Tablet] - Allergies Allergies/Adverse Reactions: Allergies Allergy/AdvReac Type Severity Reaction Status Date / Time No Known Drug Allergies Allergy Verified 09/05/22 14:25 - Social History Does the pt smoke?: No Smoking Status: Never smoker Does the pt drink ETOH?: Yes Does the pt have substance abuse?: No - Immunizations Immunizations are current?: Yes - POLST Patient has POLST: No PD ED PE NORMAL - Vitals Vital signs reviewed: Yes - General General: Alert and oriented X 3, Other (Slow stuttering speech but technically alert and oriented.Appears uncomfortable.) - HEENT HEENT: PERRL, EOMI - Neck Neck: Supple, no meningeal sign, No bony TTP - Cardiac Cardiac: RRR, No murmur - Respiratory Respiratory: No respiratory distress, Clear bilaterally - Abdomen Abdomen: Non tender - Back Back: No CVA TTP, No spinal TTP - Derm Derm: Normal color, Warm and dry - Neuro Neuro: Alert and oriented X 3, No motor deficit, No sensory deficit, Other (Slow speech) Eye Opening: To Voice (This is limited by light sensitivity.) Motor: Obeys Commands Verbal: Oriented GCS Score: 14 Results - Vitals Vitals: Vital Signs - 24 hr 09/05/22 09/05/22 09/05/22 14:18 14:55 15:25 Temperature 36.8 C Heart Rate 104 H 87 93 Respiratory 16 18 18 Rate Blood Pressure 136/84 H 132/86 H 105/76 O2 Saturation 98 96 96 Oxygen O2 Source Room air - EKG (time done) 1455 EKG releavant findings:: EKG personally interpreted by author of this note. Relevant findings are: Rate: Rate (enter#) (95) Rhythm: NSR [place]: Normal Intervals: Normal [place] QRS: Normal Ischemia: Normal ST segments - Labs Labs: Laboratory Tests 09/05/22 09/05/22 09/05/22 14:42 14:42 14:42 WBC 11.2 H RBC 5.22 Hgb 15.1 Hct 43.8 MCV 83.9 MCH 28.9 MCHC 34.5 RDW 13.1 Plt Count 299 MPV 8.6 Neut # (Auto) 7.7 H Lymph # (Auto) 2.3 [place] # (Auto) 0.9 Eos # (Auto) 0.3 Baso # (Auto) 0.1 Absolute Nucleated RBC 0.00 Nucleated RBC % 0.0 PT 11.9 INR 1.1 Sodium 141 Potassium 3.9 Chloride 104 Carbon Dioxide 29 Anion Gap 8.0 BUN 9 Creatinine 1.2 Estimated GFR (MDRD) 66 L Glucose 93 Calcium 9.7 Total Bilirubin 0.5 AST 22 ALT 19 Alkaline Phosphatase 67 Total Protein 7.6 Albumin 4.3 Globulin 3.3 Albumin/Globulin Ratio 1.3 Ethyl Alcohol < 5.0 - Rads (name of study) CT angiography of the head Relevant Findings:: Final report received, EMP independent interpretation of test PD Medical Decision Making - ED course ED course: 46-year-old gentleman presenting with worst headache of life. Clearly a concern given the time course for subarachnoid hemorrhage. His symptoms are not consistent with meningitis. He was feeling much better after the administration of IV Dilaudid and looking much more comfortable. CT angiography of the head demonstrated sinusitis but no other abnormalities. That may be causative for his headache. CBC reviewed and showing mild leukocytosis. CMP reviewed and unremarkable. Departure - Departure Disposition: 01 Home, Self Care Clinical Impression: Headache Qualifiers: Headache type: unspecified Headache chronicity pattern: acute headache Intractability: not intractable Qualified Code(s): R51.9 - Headache, unspecified Sinusitis Qualifiers: Sinusitis location: maxillary Chronicity: acute Recurrence: non-recurrent Qualified Code(s): J01.00 - Acute maxillary sinusitis, unspecified Condition: Good Record reviewed to determine appropriate education?: Yes Instructions: ED Sinusitis Abx Tx, ED Cephalgia Unspecified Prescriptions: Amoxicillin 500 mg PO TID #30 cap Oxycodone HCl/Acetaminophen [Percocet 5-325 mg Tablet] 1 - 2 each PO Q6H PRN #10 tablet PRN Reason: pain Benzonatate [Tessalon] 200 mg PO TID PRN #20 cap PRN Reason: Cough Comments: I sent the prescriptions [facility] in [place]. Call your doctor to arrange a follow-up appointment, make the next available appointment. In the interim, return anytime if worse or if new symptoms develop.
[2022-09-05] MEDS ORDERED: HYDROmorphone 1 MG/ML CARPUJECT IVP STA (14:36)
[2022-09-05 14:54] LABS: BASOPHILS # (AUTO) 0.1 10^3/uL (0.0-0.1); BASOPHILS % (AUTO) 0.4 %; EOSINOPHILS # (AUTO) 0.3 10^3/uL (0.0-0.7); EOSINOPHILS % (AUTO) 2.4 %; HCT - HEMATOCRIT 43.8 % (42.0-52.0); HGB - HEMOGLOBIN 15.1 g/dL (14.0-18.0); LYMPHOCYTES # (AUTO) 2.3 10^3/uL (1.5-3.5); LYMPHOCYTES % (AUTO) 20.6 %; MEAN CORPUSCULAR HEMOGLOBIN 28.9 pg (27.0-31.0); MEAN CORPUSCULAR HGB CONC 34.5 g/dL (32.0-36.0); MEAN CORPUSCULAR VOLUME 83.9 fL (80.0-94.0); MEAN PLATELET VOLUME 8.6 fL (7.4-11.4); MONOCYTES # (AUTO) 0.9 10^3/uL (0.0-1.0); MONOCYTES % (AUTO) 7.6 %; NEUTROPHILS # (AUTO) 7.7 10^3/uL (1.5-6.6); NEUTROPHILS % (AUTO) 68.7 %; PLT - PLATELET COUNT 299 10^3/uL (130-450); RED BLOOD COUNT 5.22 10^6/uL (4.70-6.10); RED CELL DISTRIBUTION WIDTH 13.1 % (12.0-15.0); WHITE BLOOD COUNT 11.2 x10^3/uL (4.8-10.8)
[2022-09-05 14:56] LABS: INR 1.1 (0.8-1.2); PT - PROTHROMBIN TIME 11.9 secs (9.9-12.6)
[2022-09-05 15:11] LABS: ALBUMIN 4.3 g/dL (3.2-5.5); ALBUMIN/GLOBULIN RATIO 1.3 (1.0-2.2); ALKALINE PHOSPHATASE 67 IU/L (42-121); ALT ALANINE AMINOTRANSFERASE 19 IU/L (10-60); AST ASPARTATE AMINOTRANSFERASE 22 IU/L (10-42); BILIRUBIN,TOTAL 0.5 mg/dL (0.2-1.0); BUN - BLOOD UREA NITROGEN 9 mg/dL (6-20); CALCIUM 9.7 mg/dL (8.5-10.3); CARBON DIOXIDE - CO2 29 mmol/L (21-32); CHLORIDE 104 mmol/L (101-111); CREATININE 1.2 mg/dL (0.6-1.2); ETOH - ETHANOL < 5.0 mg/dL; GFR - MDRD 66 (>89); GLUCOSE 93 mg/dL (70-100); POTASSIUM 3.9 mmol/L (3.5-5.0); SODIUM 141 mmol/L (135-145); TOTAL PROTEIN 7.6 g/dL (6.7-8.2)
[2022-09-05] MEDS ORDERED: SODIUM CHLORIDE 0.9% 1,000 ML IV STA (15:59)
[2022-09-05] MEDS ORDERED: iohexoL-300 100 ML VIAL ONE (16:01)
[2022-09-05] MEDS ORDERED: iohexoL-300 100 ML VIAL IVP ONE (16:39)
[2022-09-05] MEDS ORDERED: KETOROLAC 15 MG/ML VIAL IVP STA (17:07)
--- NOTE | 2022-09-05 17:15 | CT Report ---
PROCEDURE: ANGIO HEAD W/WO INDICATIONS: Worst headache of life, do not wait for labs. CONTRAST: 80omni 300 TECHNIQUE: Precontrast 4.5 mm thick angled axial sections acquired from the foramen magnum to the vertex. Afte r the administration of intravenous contrast, 1 mm thick sections acquired through the [place] of [place] is. Postcontrast 4.5 mm thick sections then re-acquired from the foramen magnum to the vertex. 3-di mensional rjunfji-xdlcrkaog-axmdhanxlw (MIP) and/or volume rendering reformats were acquired of the c entral intracranial vasculature. For radiation dose reduction, the following was used: automated ex posure control, adjustment of mA and/or kV according to patient size. COMPARISON: None. FINDINGS: Image quality: Excellent. Anterior circulation: Intracranial internal carotid arteries are normal in size and flow. The flow within the paired anterior cerebral arteries is normal and symmetric. The flow within the middle cer ebral arteries is normal and symmetric. The anterior communicating artery is seen. No aneurysms are seen. Posterior circulation: Visualized portions of the vertebral arteries demonstrate normal caliber, and join to form a normal appearing basilar artery. Flow within the posterior cerebral arteries is norm al and symmetric. No aneurysms are seen. CSF spaces: Ventricles are normal in size and shape. Basal cisterns are patent. No extra-axial flu id collections. Brain: No midline shift. No intracranial bleeds or masses. Meier-white matter interface appears int act. Skull and face: Calvarium and facial bones appear intact, without suspicious lesions. Sinuses: Maxillary sinus mucosal thickening, left greater than right. Mastoids are clear. IMPRESSION: 1. No acute intracranial hemorrhage. 2. No large vessel occlusion. No aneurysm demonstrated. 3. Maxillary sinusitis. Reviewed by: Ced Reyes MD on 09/05/2022 5:14 PM PST Approved by: Ced Reyes MD on 09/05/2022 5:14 PM PST Station ID: [id number]
[2022-09-05 17:28] LABS: MUDS CUTOFF CONCENTRATIONS CUTOFF CONC BELOW:
[2022-09-05 17:45] LABS: AMPHETAMINE SCREEN,URINE NEGATIVE (NEGATIVE); BARBITURATE SCREEN,UR NEGATIVE (NEGATIVE); BENZODIAZEPINES SCREEN, URINE NEGATIVE (NEGATIVE); COCAINE SCREEN URINE NEGATIVE (NEGATIVE); METHADONE SCREEN, URINE NEGATIVE (NEGATIVE); METHAMPHETAMINES SCREEN, URINE NEGATIVE (NEGATIVE); OPIATE SCREEN, URINE POSITIVE (NEGATIVE); OXYCODONE SCREEN, URINE NEGATIVE (NEGATIVE); PROPOXYPHENE SCREEN, URINE NEGATIVE (NEGATIVE); THC CANNABINOID SCREEN, URINE NEGATIVE (NEGATIVE); TRICYCLIC ANTIDEPRESSANT,URINE NEGATIVE (NEGATIVE)
[2022-09-05 17:50] VITALS: BP 127/76
== END 2022-09-05 17:55 | disposition home or self-care (01) ==
LOC: ED 14:11
DX: J01.00 Acute maxillary sinusitis, unspecified (principal); R51.9 Headache, unspecified; Z79.899 Other long term (current) drug therapy
CPT/HCPCS: 36415; 70496; 80053; 80306; 80320; 85025; 85610; 93005; 96374; 96375; 99284; J1170; Q9967

== ENCOUNTER 2022-12-02 15:00 | Outpatient (CLI) | payer OTHER | END 2022-12-02 15:01 | disposition home or self-care (01) | LOC: LAB 15:00 | PROVIDERS: ATTEND Specialist | DX: R39.9 Unspecified symptoms and signs involving the genitourinary system (principal) | CPT/HCPCS: 36415; 84153 ==

== ENCOUNTER 2022-12-23 21:57 | Outpatient (CLI) | payer OTHER | END 2022-12-23 23:59 | disposition critical access hospital (66) | LOC: EMS 21:57 | DX: R51.9 Headache, unspecified (principal); R55 Syncope and collapse | CPT/HCPCS: A0425; A0429 ==

== ENCOUNTER 2022-12-23 22:07 | Emergency (ER) | payer OTHER ==
--- OUTSIDE RECORDS SUMMARY | 2022-12-23 22:19 | EXTERNAL MEDICAL SUMMARY RPT | Continuity of Care Document ---
Author Name Unknown Address [address] [place] [address] Phone Organization [place] Address [address] [place] [address] Phone Medications date description facility 2022-10-21 00:00 Prazosin [facility] 2022-10-21 00:00 Tamsulosin [facility] Problems date description facility 2022-10-21 00:00 Urge incontinence of urine [facility] 2022-10-21 00:00 Lower urinary tract symptoms [facility] 2022-10-21 00:00 History of renal calculi [facility] Results/Labs test date author facility value unit interpretation Result panel 1 (unknown) (no date) (unknown) (unknown) (no value) (units unknown) (unknown) (unknown) (no date) (unknown) (unknown) #: [id number] (units unknown) (unknown) (unknown) (no date) (unknown) (unknown) 10/21/22 (units unknown) (unknown) (unknown) (no date) (unknown) (unknown) 46 y/o M presents to clinic as a New Patient. PVR. UA for cytology (units unknown) (unknown) (unknown) (no date) (unknown) (unknown) ADD (attention defic it disorder) (units unknown) (unknown) (unknown) (no date) (unknown) (unknown) Age/Sex: 46 / M Date of Service: (units unknown) (unknown) (unknown) (no date) (unknown) (unknown) Allergies (units unknown) (unknown) (unknown) (no date) (unknown) (unknown) [place] [address] (units unknown) (unknown) (unknown) (no date) (unknown) (unknown) Attending Dr: Crystal Condon MD (units unknown) (unknown) (unknown) (no date) (unknown) (unknown) : 1975 Acct:[id number] (units unknown) (unknown) (unknown) (no date) (unknown) (unknown) Dept at . (units unknown) (unknown) (unknown) (no date) (unknown) (unknown) Documented By: Crystal Condon MD 10/21/22 1012 (units unknown) (unknown) (unknown) (no date) (unknown) (unknown) Draft (units unknown) (unknown) (unknown) (no date) (unknown) (unknown) GERD (gastroesophage al reflux disease) (units unknown) (unknown) (unknown) (no date) (unknown) (unknown) H/O right knee surgery (units unknown) (unknown) (unknown) (no date) (unknown) (unknown) H/O shoulder surgery (units unknown) (unknown) (unknown) (no date) (unknown) (unknown) Intake Note: (units unknown) (unknown) (unknown) (no date) (unknown) (unknown) Intake performed by: Hue Diaz (units unknown) (unknown) (unknown) (no date) (unknown) (unknown) Intake (units unknown) (unknown) (unknown) (no date) (unknown) (unknown) Intake- Clincial Staff (units unknown) (unknown) (unknown) (no date) (unknown) (unknown) [facility] (units unknown) (unknown) (unknown) (no date) (unknown) (unknown) Kidney stones (units unknown) (unknown) (unknown) (no date) (unknown) (unknown) Knee pain (units unknown) (unknown) (unknown) (no date) (unknown) (unknown) Loc: [facility] (units unknown) (unknown) (unknown) (no date) (unknown) (unknown) Medical History (Updated 10/27/19 @ 00:00 by ) (units unknown) (unknown) (unknown) (no date) (unknown) (unknown) No Known Drug Allerg ies Allergy (Verified 11/16/18 11:29) (units unknown) (unknown) (unknown) (no date) (unknown) (unknown) VISHNU (obstructive sle ep apnea) (units unknown) (unknown) (unknown) (no date) (unknown) (unknown) PFSH (units unknown) (unknown) (unknown) (no date) (unknown) (unknown) PTSD (post-traumatic stress disorder) (units unknown) (unknown) (unknown) (no date) (unknown) (unknown) Patient: Esdras Stephen Jr MR (units unknown) (unknown) (unknown) (no date) (unknown) (unknown) Reason For Visit (units unknown) (unknown) (unknown) (no date) (unknown) (unknown) Signed By: (units unknown) (unknown) (unknown) (no date) (unknown) (unknown) Smoking Status: Freddy hopkins smoker (units unknown) (unknown) (unknown) (no date) (unknown) (unknown) Social History (units unknown) (unknown) (unknown) (no date) (unknown) (unknown) Surgical History (units unknown) (unknown) (unknown) (no date) (unknown) (unknown) This note may have b een all or partially generated using voice recognition (units unknown) (unknown) (unknown) (no date) (unknown) (unknown) Tobacco Status (units unknown) (unknown) (unknown) (no date) (unknown) (unknown) Urology Office Visit (units unknown) (unknown) (unknown) (no date) (unknown) (unknown) Visit Reasons: MANAGER OF INTERNAL AUDIT, P VR, UA for cytology (units unknown) (unknown) (unknown) (no date) (unknown) (unknown) have occurred. If th ere are any questions, please contact the Medical Records (units unknown) (unknown) (unknown) (no date) (unknown) (unknown) may occur. Occasiona l wrong-word or 'sound-alike' substitutions may have (units unknown) (unknown) (unknown) (no date) (unknown) (unknown) occurred due to the inherent limitations of voice recognition software. Please (units unknown) (unknown) (unknown) (no date) (unknown) (unknown) read the note carefu lly and recognize, using context, where these substitutions (units unknown) (unknown) (unknown) (no date) (unknown) (unknown) software. Although every effort is made to edit content, phthalic acid purifier errors (units unknown) (unknown) Result panel 2 (unknown) (no date) (unknown) (unknown) (no value) (units unknown) (unknown) (unknown) (no date) (unknown) (unknown) #: [id number] (units unknown) (unknown) (unknown) (no date) (unknown) (unknown) 10/21/22 (units unknown) (unknown) (unknown) (no date) (unknown) (unknown) 46 y/o M presents to clinic as a New Patient. PVR. UA for cytology (units unknown) (unknown) (unknown) (no date) (unknown) (unknown) ADD (attention defic it disorder) (units unknown) (unknown) (unknown) (no date) (unknown) (unknown) Age/Sex: 46 / M Date of Service: (units unknown) (unknown) (unknown) (no date) (unknown) (unknown) Allergies (units unknown) (unknown) (unknown) (no date) (unknown) (unknown) [place] [address] (units unknown) (unknown) (unknown) (no date) (unknown) (unknown) Arthritis (units unknown) (unknown) (unknown) (no date) (unknown) (unknown) Attending Dr: Crystal Condon MD (units unknown) (unknown) (unknown) (no date) (unknown) (unknown) Billing- Post Void Residual: Post Void Residual- 93034 (units unknown) (unknown) (unknown) (no date) (unknown) (unknown) Bladder volume: PVR = (units unknown) (unknown) (unknown) (no date) (unknown) (unknown) Chest pain (units unknown) (unknown) (unknown) (no date) (unknown) (unknown) : 1975 Acct:[id number] (units unknown) (unknown) (unknown) (no date) (unknown) (unknown) Depression (units unknown) (unknown) (unknown) (no date) (unknown) (unknown) Dept at . (units unknown) (unknown) (unknown) (no date) (unknown) (unknown) Documented By: Crystal Condon MD 10/21/22 1012 (units unknown) (unknown) (unknown) (no date) (unknown) (unknown) Draft (units unknown) (unknown) (unknown) (no date) (unknown) (unknown) Family History (Upda vivien 10/21/22 @ 10:24 by Hue Diaz RN) (units unknown) (unknown) (unknown) (no date) (unknown) (unknown) Father Cancer (units unknown) (unknown) (unknown) (no date) (unknown) (unknown) GERD (gastroesophage al reflux disease) (units unknown) (unknown) (unknown) (no date) (unknown) (unknown) H/O right knee surgery (units unknown) (unknown) (unknown) (no date) (unknown) (unknown) H/O shoulder surgery (units unknown) (unknown) (unknown) (no date) (unknown) (unknown) H/O vasectomy (units unknown) (unknown) (unknown) (no date) (unknown) (unknown) History of knee surgery (units unknown) (unknown) (unknown) (no date) (unknown) (unknown) Hx of nephrolithotom y with removal of calculi (units unknown) (unknown) (unknown) (no date) (unknown) (unknown) Intake Note: (units unknown) (unknown) (unknown) (no date) (unknown) (unknown) Intake performed by: Hue Diaz (units unknown) (unknown) (unknown) (no date) (unknown) (unknown) Intake (units unknown) (unknown) (unknown) (no date) (unknown) (unknown) Intake- Clincial Staff (units unknown) (unknown) (unknown) (no date) (unknown) (unknown) [facility] (units unknown) (unknown) (unknown) (no date) (unknown) (unknown) Kidney stones (units unknown) (unknown) (unknown) (no date) (unknown) (unknown) Knee pain (units unknown) (unknown) (unknown) (no date) (unknown) (unknown) Loc: [facility] (units unknown) (unknown) (unknown) (no date) (unknown) (unknown) Medical History (Updated 10/21/22 @ 10:24 by Hue Diaz RN) (units unknown) (unknown) (unknown) (no date) (unknown) (unknown) Mother Cancer (units unknown) (unknown) (unknown) (no date) (unknown) (unknown) No Known Drug Allerg ies Allergy (Verified 10/21/22 10:19) (units unknown) (unknown) (unknown) (no date) (unknown) (unknown) VISHNU (obstructive sle ep apnea) (units unknown) (unknown) (unknown) (no date) (unknown) (unknown) Office Procedures (units unknown) (unknown) (unknown) (no date) (unknown) (unknown) PFSH (units unknown) (unknown) (unknown) (no date) (unknown) (unknown) PTSD (post-traumatic stress disorder) (units unknown) (unknown) (unknown) (no date) (unknown) (unknown) Patient: Esdras Stephen Jr MR (units unknown) (unknown) (unknown) (no date) (unknown) (unknown) Procedure performed by: Hue Diaz (units unknown) (unknown) (unknown) (no date) (unknown) (unknown) Reason For Visit (units unknown) (unknown) (unknown) (no date) (unknown) (unknown) Residual: post void (units unknown) (unknown) (unknown) (no date) (unknown) (unknown) Seizure disorder (units unknown) (unknown) (unknown) (no date) (unknown) (unknown) Signed By: (units unknown) (unknown) (unknown) (no date) (unknown) (unknown) Smoking Status: Freddy r smoker (units unknown) (unknown) (unknown) (no date) (unknown) (unknown) Social History (Upda vivien 10/21/22 @ 10:25 by Hue Diaz RN) (units unknown) (unknown) (unknown) (no date) (unknown) (unknown) Surgical History (Updated 10/21/22 @ 10:24 by Hue Diaz RN) (units unknown) (unknown) (unknown) (no date) (unknown) (unknown) This note may have b een all or partially generated using voice recognition (units unknown) (unknown) (unknown) (no date) (unknown) (unknown) Tobacco Status (units unknown) (unknown) (unknown) (no date) (unknown) (unknown) Urology Office Visit (units unknown) (unknown) (unknown) (no date) (unknown) (unknown) Visit Reasons: MANAGER OF INTERNAL AUDIT, P VR, UA for cytology (units unknown) (unknown) (unknown) (no date) (unknown) (unknown) have occurred. If th ere are any questions, please contact the Medical Records (units unknown) (unknown) (unknown) (no date) (unknown) (unknown) marital status: (units unknown) (unknown) (unknown) (no date) (unknown) (unknown) may occur. Occasiona l wrong-word or 'sound-alike' substitutions may have (units unknown) (unknown) (unknown) (no date) (unknown) (unknown) number of children: 5 (units unknown) (unknown) (unknown) (no date) (unknown) (unknown) occurred due to the inherent limitations of voice recognition software. Please (units unknown) (unknown) (unknown) (no date) (unknown) (unknown) read the note carefu lly and recognize, using context, where these substitutions (units unknown) (unknown) (unknown) (no date) (unknown) (unknown) software. Although every effort is made to edit content, phthalic acid purifier errors (units unknown) (unknown) Result panel 3 (unknown) (no date) (unknown) (unknown) (no value) (units unknown) (unknown) (unknown) (no date) (unknown) (unknown) #: [id number] (units unknown) (unknown) (unknown) (no date) (unknown) (unknown) 10/21/22 (units unknown) (unknown) (unknown) (no date) (unknown) (unknown) 10:32 (units unknown) (unknown) (unknown) (no date) (unknown) (unknown) 46 y/o M presents to clinic as a New Patient. PVR. UA for cytology (units unknown) (unknown) (unknown) (no date) (unknown) (unknown) ADD (attention defic it disorder) (units unknown) (unknown) (unknown) (no date) (unknown) (unknown) Age/Sex: 46 / M Date of Service: (units unknown) (unknown) (unknown) (no date) (unknown) (unknown) Allergies (units unknown) (unknown) (unknown) (no date) (unknown) (unknown) [place] [id number] (units unknown) (unknown) (unknown) (no date) (unknown) (unknown) Arthritis (units unknown) (unknown) (unknown) (no date) (unknown) (unknown) Attending Dr: Crystal Condon MD (units unknown) (unknown) (unknown) (no date) (unknown) (unknown) BMI 33.5 (units unknown) (unknown) (unknown) (no date) (unknown) (unknown) BP 116/76 (units unknown) (unknown) (unknown) (no date) (unknown) (unknown) Billing- Post Void Residual: Post Void Residual- 09055 (units unknown) (unknown) (unknown) (no date) (unknown) (unknown) Bladder volume: PVR = 4ml (units unknown) (unknown) (unknown) (no date) (unknown) (unknown) Blood Pressure Locat ion Lt brachial (units unknown) (unknown) (unknown) (no date) (unknown) (unknown) Chest pain (units unknown) (unknown) (unknown) (no date) (unknown) (unknown) : 1975 Acct:[id number] (units unknown) (unknown) (unknown) (no date) (unknown) (unknown) Depression (units unknown) (unknown) (unknown) (no date) (unknown) (unknown) Dept at . (units unknown) (unknown) (unknown) (no date) (unknown) (unknown) Documented By: Crystal Condon MD 10/21/22 1012 (units unknown) (unknown) (unknown) (no date) (unknown) (unknown) Draft (units unknown) (unknown) (unknown) (no date) (unknown) (unknown) Family History (Upda vivien 10/21/22 @ 10:24 by Hue Diaz RN) (units unknown) (unknown) (unknown) (no date) (unknown) (unknown) Father Cancer (units unknown) (unknown) (unknown) (no date) (unknown) (unknown) GERD (gastroesophage al reflux disease) (units unknown) (unknown) (unknown) (no date) (unknown) (unknown) H/O right knee surgery (units unknown) (unknown) (unknown) (no date) (unknown) (unknown) H/O shoulder surgery (units unknown) (unknown) (unknown) (no date) (unknown) (unknown) H/O vasectomy (units unknown) (unknown) (unknown) (no date) (unknown) (unknown) Height 5 ft 11 in (units unknown) (unknown) (unknown) (no date) (unknown) (unknown) History of knee surgery (units unknown) (unknown) (unknown) (no date) (unknown) (unknown) Hx of nephrolithotom y with removal of calculi (units unknown) (unknown) (unknown) (no date) (unknown) (unknown) Intake Note: (units unknown) (unknown) (unknown) (no date) (unknown) (unknown) Intake performed by: Hue Diaz (units unknown) (unknown) (unknown) (no date) (unknown) (unknown) Intake (units unknown) (unknown) (unknown) (no date) (unknown) (unknown) Intake- Clincial Staff (units unknown) (unknown) (unknown) (no date) (unknown) (unknown) [facility] (units unknown) (unknown) (unknown) (no date) (unknown) (unknown) Kidney stones (units unknown) (unknown) (unknown) (no date) (unknown) (unknown) Knee pain (units unknown) (unknown) (unknown) (no date) (unknown) (unknown) Loc: [facility] (units unknown) (unknown) (unknown) (no date) (unknown) (unknown) Medical History (Updated 10/21/22 @ 10:24 by Hue Diaz RN) (units unknown) (unknown) (unknown) (no date) (unknown) (unknown) Mother Cancer (units unknown) (unknown) (unknown) (no date) (unknown) (unknown) No Known Drug Allerg ies Allergy (Verified 10/21/22 10:19) (units unknown) (unknown) (unknown) (no date) (unknown) (unknown) VISHNU (obstructive sle ep apnea) (units unknown) (unknown) (unknown) (no date) (unknown) (unknown) Office Procedures (units unknown) (unknown) (unknown) (no date) (unknown) (unknown) Oxygen Delivery Meth od room air (units unknown) (unknown) (unknown) (no date) (unknown) (unknown) PFSH (units unknown) (unknown) (unknown) (no date) (unknown) (unknown) PTSD (post-traumatic stress disorder) (units unknown) (unknown) (unknown) (no date) (unknown) (unknown) Patient: Esdras Stephen Jr MR (units unknown) (unknown) (unknown) (no date) (unknown) (unknown) Position Sitting (units unknown) (unknown) (unknown) (no date) (unknown) (unknown) Procedure performed by: Hue Diaz (units unknown) (unknown) (unknown) (no date) (unknown) (unknown) Pulse 95 H (units unknown) (unknown) (unknown) (no date) (unknown) (unknown) Pulse Oximetry (%) 96 (units unknown) (unknown) (unknown) (no date) (unknown) (unknown) Pulse Source Monitor (units unknown) (unknown) (unknown) (no date) (unknown) (unknown) Reason For Visit (units unknown) (unknown) (unknown) (no date) (unknown) (unknown) Residual: post void (units unknown) (unknown) (unknown) (no date) (unknown) (unknown) Respiration 16 (units unknown) (unknown) (unknown) (no date) (unknown) (unknown) Seizure disorder (units unknown) (unknown) (unknown) (no date) (unknown) (unknown) Signed By: (units unknown) (unknown) (unknown) (no date) (unknown) (unknown) Smoking Status: Debraemerson r smoker (units unknown) (unknown) (unknown) (no date) (unknown) (unknown) Social History (Upda vivien 10/21/22 @ 10:25 by Hue Diaz RN) (units unknown) (unknown) (unknown) (no date) (unknown) (unknown) Surgical History (Updated 10/21/22 @ 10:24 by Hue Diaz RN) (units unknown) (unknown) (unknown) (no date) (unknown) (unknown) This note may have b een all or partially generated using voice recognition (units unknown) (unknown) (unknown) (no date) (unknown) (unknown) Tobacco Status (units unknown) (unknown) (unknown) (no date) (unknown) (unknown) Urology Office Visit (units unknown) (unknown) (unknown) (no date) (unknown) (unknown) Visit Reasons: MANAGER OF INTERNAL AUDIT, P VR, UA for cytology (units unknown) (unknown) (unknown) (no date) (unknown) (unknown) Vitals (units unknown) (unknown) (unknown) (no date) (unknown) (unknown) Weight 240 lb (units unknown) (unknown) (unknown) (no date) (unknown) (unknown) have occurred. If th ere are any questions, please contact the Medical Records (units unknown) (unknown) (unknown) (no date) (unknown) (unknown) marital status: (units unknown) (unknown) (unknown) (no date) (unknown) (unknown) may occur. Occasiona l wrong-word or 'sound-alike' substitutions may have (units unknown) (unknown) (unknown) (no date) (unknown) (unknown) number of children: 5 (units unknown) (unknown) (unknown) (no date) (unknown) (unknown) occurred due to the inherent limitations of voice recognition software. Please (units unknown) (unknown) (unknown) (no date) (unknown) (unknown) read the note carefu lly and recognize, using context, where these substitutions (units unknown) (unknown) (unknown) (no date) (unknown) (unknown) software. Although every effort is made to edit content, phthalic acid purifier errors (units unknown) (unknown) Result panel 4 (unknown) (no date) (unknown) (unknown) (no value) (units unknown) (unknown) (unknown) (no date) (unknown) (unknown) #: [id number] (units unknown) (unknown) (unknown) (no date) (unknown) (unknown) 10/21/22 (units unknown) (unknown) (unknown) (no date) (unknown) (unknown) 10:32 (units unknown) (unknown) (unknown) (no date) (unknown) (unknown) 46 y/o M presents to clinic as a New Patient. PVR. UA for cytology (units unknown) (unknown) (unknown) (no date) (unknown) (unknown) ADD (attention defic it disorder) (units unknown) (unknown) (unknown) (no date) (unknown) (unknown) Age/Sex: 46 / M Date of Service: (units unknown) (unknown) (unknown) (no date) (unknown) (unknown) Allergies (units unknown) (unknown) (unknown) (no date) (unknown) (unknown) [place] [id number] (units unknown) (unknown) (unknown) (no date) (unknown) (unknown) Arthritis (units unknown) (unknown) (unknown) (no date) (unknown) (unknown) Attending Dr: Crystal Condon MD (units unknown) (unknown) (unknown) (no date) (unknown) (unknown) BMI 33.5 (units unknown) (unknown) (unknown) (no date) (unknown) (unknown) BP 116/76 (units unknown) (unknown) (unknown) (no date) (unknown) (unknown) Billing- Post Void Residual: Post Void Residual- 95907 (units unknown) (unknown) (unknown) (no date) (unknown) (unknown) Bladder volume: PVR = 4ml (units unknown) (unknown) (unknown) (no date) (unknown) (unknown) Blood Pressure Locat ion Lt brachial (units unknown) (unknown) (unknown) (no date) (unknown) (unknown) Chest pain (units unknown) (unknown) (unknown) (no date) (unknown) (unknown) Chief Complaint (units unknown) (unknown) (unknown) (no date) (unknown) (unknown) Chief Complaint: Low er urinary tract symptoms (units unknown) (unknown) (unknown) (no date) (unknown) (unknown) : 1975 Acct:[id number] (units unknown) (unknown) (unknown) (no date) (unknown) (unknown) Depression (units unknown) (unknown) (unknown) (no date) (unknown) (unknown) Dept at . (units unknown) (unknown) (unknown) (no date) (unknown) (unknown) Details: (units unknown) (unknown) (unknown) (no date) (unknown) (unknown) Documented By: Crystal Condon MD 10/21/22 1012 (units unknown) (unknown) (unknown) (no date) (unknown) (unknown) Draft (units unknown) (unknown) (unknown) (no date) (unknown) (unknown) Family History (Upda vivien 10/21/22 @ 10:24 by Hue Diaz, SARAI) (units unknown) (unknown) (unknown) (no date) (unknown) (unknown) Father Cancer (units unknown) (unknown) (unknown) (no date) (unknown) (unknown) GERD (gastroesophage al reflux disease) (units unknown) (unknown) (unknown) (no date) (unknown) (unknown) H/O right knee surgery (units unknown) (unknown) (unknown) (no date) (unknown) (unknown) H/O shoulder surgery (units unknown) (unknown) (unknown) (no date) (unknown) (unknown) H/O vasectomy (units unknown) (unknown) (unknown) (no date) (unknown) (unknown) HPI (units unknown) (unknown) (unknown) (no date) (unknown) (unknown) Height 5 ft 11 in (units unknown) (unknown) (unknown) (no date) (unknown) (unknown) History of knee surgery (units unknown) (unknown) (unknown) (no date) (unknown) (unknown) Hx of nephrolithotom y with removal of calculi (units unknown) (unknown) (unknown) (no date) (unknown) (unknown) Intake Note: (units unknown) (unknown) (unknown) (no date) (unknown) (unknown) Intake performed by: Hue Diaz (units unknown) (unknown) (unknown) (no date) (unknown) (unknown) Intake (units unknown) (unknown) (unknown) (no date) (unknown) (unknown) Intake- Clincial Staff (units unknown) (unknown) (unknown) (no date) (unknown) (unknown) [facility] (units unknown) (unknown) (unknown) (no date) (unknown) (unknown) Kidney stones (units unknown) (unknown) (unknown) (no date) (unknown) (unknown) Knee pain (units unknown) (unknown) (unknown) (no date) (unknown) (unknown) Loc: [facility] (units unknown) (unknown) (unknown) (no date) (unknown) (unknown) Medical History (Updated 10/21/22 @ 10:24 by Hue Diaz RN) (units unknown) (unknown) (unknown) (no date) (unknown) (unknown) Mother Cancer (units unknown) (unknown) (unknown) (no date) (unknown) (unknown) No Known Drug Allerg ies Allergy (Verified 10/21/22 10:19) (units unknown) (unknown) (unknown) (no date) (unknown) (unknown) VISHNU (obstructive sle ep apnea) (units unknown) (unknown) (unknown) (no date) (unknown) (unknown) Office Procedures (units unknown) (unknown) (unknown) (no date) (unknown) (unknown) Oxygen Delivery Meth od room air (units unknown) (unknown) (unknown) (no date) (unknown) (unknown) PFSH (units unknown) (unknown) (unknown) (no date) (unknown) (unknown) PTSD (post-traumatic stress disorder) (units unknown) (unknown) (unknown) (no date) (unknown) (unknown) Patient: Esdras Stephen Jr MR (units unknown) (unknown) (unknown) (no date) (unknown) (unknown) Position Sitting (units unknown) (unknown) (unknown) (no date) (unknown) (unknown) Procedure performed by: Hue Diaz (units unknown) (unknown) (unknown) (no date) (unknown) (unknown) Pulse 95 H (units unknown) (unknown) (unknown) (no date) (unknown) (unknown) Pulse Oximetry (%) 96 (units unknown) (unknown) (unknown) (no date) (unknown) (unknown) Pulse Source Monitor (units unknown) (unknown) (unknown) (no date) (unknown) (unknown) Ian is a 46-year-old male presenting today for (units unknown) (unknown) (unknown) (no date) (unknown) (unknown) Reason For Visit (units unknown) (unknown) (unknown) (no date) (unknown) (unknown) Residual: post void (units unknown) (unknown) (unknown) (no date) (unknown) (unknown) Respiration 16 (units unknown) (unknown) (unknown) (no date) (unknown) (unknown) Seizure disorder (units unknown) (unknown) (unknown) (no date) (unknown) (unknown) Signed By: (units unknown) (unknown) (unknown) (no date) (unknown) (unknown) Smoking Status: Freddy r smoker (units unknown) (unknown) (unknown) (no date) (unknown) (unknown) Social History (Upda vivien 10/21/22 @ 10:25 by Hue Diaz RN) (units unknown) (unknown) (unknown) (no date) (unknown) (unknown) Surgical History (Updated 10/21/22 @ 10:24 by Hue Diaz RN) (units unknown) (unknown) (unknown) (no date) (unknown) (unknown) This note may have b een all or partially generated using voice recognition (units unknown) (unknown) (unknown) (no date) (unknown) (unknown) Tobacco Status (units unknown) (unknown) (unknown) (no date) (unknown) (unknown) Urology Office Visit (units unknown) (unknown) (unknown) (no date) (unknown) (unknown) Visit Reasons: MANAGER OF INTERNAL AUDIT, P VR, UA for cytology (units unknown) (unknown) (unknown) (no date) (unknown) (unknown) Vitals (units unknown) (unknown) (unknown) (no date) (unknown) (unknown) Weight 240 lb (units unknown) (unknown) (unknown) (no date) (unknown) (unknown) and episodes of urge incontinence. He provides no history that he can attribute (units unknown) (unknown) (unknown) (no date) (unknown) (unknown) have occurred. If th ere are any questions, please contact the Medical Records (units unknown) (unknown) (unknown) (no date) (unknown) (unknown) list were prescribed on or about that time. His PCP prescribed tamsulosin 0.4 (units unknown) (unknown) (unknown) (no date) (unknown) (unknown) marital status: (units unknown) (unknown) (unknown) (no date) (unknown) (unknown) may occur. Occasiona l wrong-word or 'sound-alike' substitutions may have (units unknown) (unknown) (unknown) (no date) (unknown) (unknown) mg at HS. He states that he noticed improvement in urinary frequency, but not (units unknown) (unknown) (unknown) (no date) (unknown) (unknown) number of children: 5 (units unknown) (unknown) (unknown) (no date) (unknown) (unknown) occurred due to the inherent limitations of voice recognition software. Please (units unknown) (unknown) (unknown) (no date) (unknown) (unknown) opinion regarding approximately a 1 year history of urinary frequency, urgency, (units unknown) (unknown) (unknown) (no date) (unknown) (unknown) read the note carefu lly and recognize, using context, where these substitutions (units unknown) (unknown) (unknown) (no date) (unknown) (unknown) software. Although every effort is made to edit content, phthalic acid purifier errors (units unknown) (unknown) (unknown) (no date) (unknown) (unknown) to the change in his urinary pattern. Denies that any of his current medication (units unknown) (unknown) (unknown) (no date) (unknown) (unknown) urgency. They have a lso had some challenges with regards to (units unknown) (unknown) Result panel 5 (unknown) (no date) (unknown) (unknown) (no value) (units unknown) (unknown) (unknown) (no date) (unknown) (unknown) #: [id number] (units unknown) (unknown) (unknown) (no date) (unknown) (unknown) (1) Lower urinary tr act symptoms (LUTS): (units unknown) (unknown) (unknown) (no date) (unknown) (unknown) (2) History of nephrolithiasis: (units unknown) (unknown) (unknown) (no date) (unknown) (unknown) (3) Urge incontinence: (units unknown) (unknown) (unknown) (no date) (unknown) (unknown) 10/21/22 (units unknown) (unknown) (unknown) (no date) (unknown) (unknown) 1. Trial tamsulosin 0.4 mg in a.m. at least 1/2 hour after breakfast. (units unknown) (unknown) (unknown) (no date) (unknown) (unknown) 10:32 (units unknown) (unknown) (unknown) (no date) (unknown) (unknown) 2. DIETARY IRRITANT GUIDELINES-provided with explanation and verbal overview. (units unknown) (unknown) (unknown) (no date) (unknown) (unknown) 2019. (units unknown) (unknown) (unknown) (no date) (unknown) (unknown) 3. PSA. (units unknown) (unknown) (unknown) (no date) (unknown) (unknown) 4. Consider noncontr ast CT-future given history of stone and possibility of (units unknown) (unknown) (unknown) (no date) (unknown) (unknown) 46 y/o M presents to clinic as a New Patient. PVR. UA for cytology (units unknown) (unknown) (unknown) (no date) (unknown) (unknown) ADD (attention defic it disorder) (units unknown) (unknown) (unknown) (no date) (unknown) (unknown) Abdomen-round and protuberant. Bowel tones are normal active. No palpable (units unknown) (unknown) (unknown) (no date) (unknown) (unknown) Age/Sex: 46 / M Date of Service: (units unknown) (unknown) (unknown) (no date) (unknown) (unknown) All systems reviewed + are unremarkable except as noted in HPI and below (units unknown) (unknown) (unknown) (no date) (unknown) (unknown) Allergies (units unknown) (unknown) (unknown) (no date) (unknown) (unknown) [place] [address] (units unknown) (unknown) (unknown) (no date) (unknown) (unknown) Arthritis (units unknown) (unknown) (unknown) (no date) (unknown) (unknown) Assessment + Plan (units unknown) (unknown) (unknown) (no date) (unknown) (unknown) Attending Dr: Crystal Condon MD (units unknown) (unknown) (unknown) (no date) (unknown) (unknown) BMI 33.5 (units unknown) (unknown) (unknown) (no date) (unknown) (unknown) BP 116/76 (units unknown) (unknown) (unknown) (no date) (unknown) (unknown) Billing- Post Void Residual: Post Void Residual- 02471 (units unknown) (unknown) (unknown) (no date) (unknown) (unknown) Bladder volume: PVR = 4ml (units unknown) (unknown) (unknown) (no date) (unknown) (unknown) Blood Pressure Locat ion Lt brachial (units unknown) (unknown) (unknown) (no date) (unknown) (unknown) Chest pain (units unknown) (unknown) (unknown) (no date) (unknown) (unknown) Chest-equal and unlabored expansion bilaterally. (units unknown) (unknown) (unknown) (no date) (unknown) (unknown) Chief Complaint (units unknown) (unknown) (unknown) (no date) (unknown) (unknown) Chief Complaint: Low er urinary tract symptoms (units unknown) (unknown) (unknown) (no date) (unknown) (unknown) Code(s): (units unknown) (unknown) (unknown) (no date) (unknown) (unknown) Const (units unknown) (unknown) (unknown) (no date) (unknown) (unknown) : 1975 Acct:[id number] (units unknown) (unknown) (unknown) (no date) (unknown) (unknown) Depression (units unknown) (unknown) (unknown) (no date) (unknown) (unknown) Dept at . (units unknown) (unknown) (unknown) (no date) (unknown) (unknown) Details: (units unknown) (unknown) (unknown) (no date) (unknown) (unknown) Documented By: Crystal Condon MD 10/21/22 1012 (units unknown) (unknown) (unknown) (no date) (unknown) (unknown) Draft (units unknown) (unknown) (unknown) (no date) (unknown) (unknown) Encounter documentation, and billing-10 minutes (units unknown) (unknown) (unknown) (no date) (unknown) (unknown) Exam Narrative (units unknown) (unknown) (unknown) (no date) (unknown) (unknown) Exam Narrative: (units unknown) (unknown) (unknown) (no date) (unknown) (unknown) Exam (units unknown) (unknown) (unknown) (no date) (unknown) (unknown) Nspj-er-htgq encounter-40 minutes (units unknown) (unknown) (unknown) (no date) (unknown) (unknown) Family History (units unknown) (unknown) (unknown) (no date) (unknown) (unknown) Father Cancer (units unknown) (unknown) (unknown) (no date) (unknown) (unknown) GERD (gastroesophage al reflux disease) (units unknown) (unknown) (unknown) (no date) (unknown) (unknown) Genitalia-normal ne lt circumcised male phallus. Meatus is orthotopic and of (units unknown) (unknown) (unknown) (no date) (unknown) (unknown) H/O right knee surgery (units unknown) (unknown) (unknown) (no date) (unknown) (unknown) H/O shoulder surgery (units unknown) (unknown) (unknown) (no date) (unknown) (unknown) H/O vasectomy (units unknown) (unknown) (unknown) (no date) (unknown) (unknown) HPI (units unknown) (unknown) (unknown) (no date) (unknown) (unknown) He denies a known family history of renal or prostatic disease. Urinalysis (units unknown) (unknown) (unknown) (no date) (unknown) (unknown) He is a well-develop ed, moderately over nourished middle-aged male in (units unknown) (unknown) (unknown) (no date) (unknown) (unknown) He reports having a history of passing several stones bilaterally over several (units unknown) (unknown) (unknown) (no date) (unknown) (unknown) Head/neck-sclera are clear pupils are round and equal. Neck is without visible (units unknown) (unknown) (unknown) (no date) (unknown) (unknown) Heart-normal sinus rhythm. (units unknown) (unknown) (unknown) (no date) (unknown) (unknown) Height 5 ft 11 in (units unknown) (unknown) (unknown) (no date) (unknown) (unknown) History of knee surgery (units unknown) (unknown) (unknown) (no date) (unknown) (unknown) History of nephrolithiasis (units unknown) (unknown) (unknown) (no date) (unknown) (unknown) Hx of nephrolithotom y with removal of calculi (units unknown) (unknown) (unknown) (no date) (unknown) (unknown) Intake Note: (units unknown) (unknown) (unknown) (no date) (unknown) (unknown) Intake performed by: Hue Diaz (units unknown) (unknown) (unknown) (no date) (unknown) (unknown) Intake (units unknown) (unknown) (unknown) (no date) (unknown) (unknown) Intake- Clincial Staff (units unknown) (unknown) (unknown) (no date) (unknown) (unknown) [facility] (units unknown) (unknown) (unknown) (no date) (unknown) (unknown) Kidney stones (units unknown) (unknown) (unknown) (no date) (unknown) (unknown) Knee pain (units unknown) (unknown) (unknown) (no date) (unknown) (unknown) Loc: [facility] (units unknown) (unknown) (unknown) (no date) (unknown) (unknown) Lower urinary tract symptoms (LUTS) (units unknown) (unknown) (unknown) (no date) (unknown) (unknown) Medical History (Updated 10/21/22 @ 11:11 by Crystal Condon MD) (units unknown) (unknown) (unknown) (no date) (unknown) (unknown) Mother Cancer (units unknown) (unknown) (unknown) (no date) (unknown) (unknown) N39.41 - Urge incontinence (units unknown) (unknown) (unknown) (no date) (unknown) (unknown) No Known Drug Allerg ies Allergy (Verified 10/21/22 10:19) (units unknown) (unknown) (unknown) (no date) (unknown) (unknown) VISHNU (obstructive sle ep apnea) (units unknown) (unknown) (unknown) (no date) (unknown) (unknown) Office Procedures (units unknown) (unknown) (unknown) (no date) (unknown) (unknown) Oxygen Delivery Meth od room air (units unknown) (unknown) (unknown) (no date) (unknown) (unknown) PFSH (units unknown) (unknown) (unknown) (no date) (unknown) (unknown) PTSD (post-traumatic stress disorder) (units unknown) (unknown) (unknown) (no date) (unknown) (unknown) Patient: Esdras Stephen Jr MR (units unknown) (unknown) (unknown) (no date) (unknown) (unknown) Plan (units unknown) (unknown) (unknown) (no date) (unknown) (unknown) Position Sitting (units unknown) (unknown) (unknown) (no date) (unknown) (unknown) Procedure performed by: Hue Diaz (units unknown) (unknown) (unknown) (no date) (unknown) (unknown) Pulse 95 H (units unknown) (unknown) (unknown) (no date) (unknown) (unknown) Pulse Oximetry (%) 96 (units unknown) (unknown) (unknown) (no date) (unknown) (unknown) Pulse Source Monitor (units unknown) (unknown) (unknown) (no date) (unknown) (unknown) R39.9 - Unspecified symptoms and signs involving the genitourinary system (units unknown) (unknown) (unknown) (no date) (unknown) (unknown) ROS (units unknown) (unknown) (unknown) (no date) (unknown) (unknown) Ian is a 46-year-old male presenting today for (units unknown) (unknown) (unknown) (no date) (unknown) (unknown) Reason For Visit (units unknown) (unknown) (unknown) (no date) (unknown) (unknown) Rectal-tone is tanya l in the vault is empty. Prostate measures 15-20 g with (units unknown) (unknown) (unknown) (no date) (unknown) (unknown) Residual: post void (units unknown) (unknown) (unknown) (no date) (unknown) (unknown) Respiration 16 (units unknown) (unknown) (unknown) (no date) (unknown) (unknown) Review of clinical chart note history, patient data including 18 pages of (units unknown) (unknown) (unknown) (no date) (unknown) (unknown) Reviewed findings, discussed impression, discussed options and explained (units unknown) (unknown) (unknown) (no date) (unknown) (unknown) Seizure disorder (units unknown) (unknown) (unknown) (no date) (unknown) (unknown) Signed By: (units unknown) (unknown) (unknown) (no date) (unknown) (unknown) Smoking Status: Neve r smoker (units unknown) (unknown) (unknown) (no date) (unknown) (unknown) Social History (units unknown) (unknown) (unknown) (no date) (unknown) (unknown) Status: Acute (units unknown) (unknown) (unknown) (no date) (unknown) (unknown) Surgical History (units unknown) (unknown) (unknown) (no date) (unknown) (unknown) [place]. He believes t hat allopurinol, hydrochlorothiazide, and potassium citrate (units unknown) (unknown) (unknown) (no date) (unknown) (unknown) The patient has also undergone vasectomy in 2013 and subsequent reversal in (units unknown) (unknown) (unknown) (no date) (unknown) (unknown) This note may have b een all or partially generated using voice recognition (units unknown) (unknown) (unknown) (no date) (unknown) (unknown) Tobacco Status (units unknown) (unknown) (unknown) (no date) (unknown) (unknown) Urge incontinence (units unknown) (unknown) (unknown) (no date) (unknown) (unknown) Urology Office Visit (units unknown) (unknown) (unknown) (no date) (unknown) (unknown) Visit Reasons: MANAGER OF INTERNAL AUDIT, P VR, UA for cytology (units unknown) (unknown) (unknown) (no date) (unknown) (unknown) Vitals (units unknown) (unknown) (unknown) (no date) (unknown) (unknown) Weight 240 lb (units unknown) (unknown) (unknown) (no date) (unknown) (unknown) Z87.442 - Personal history of urinary calculi (units unknown) (unknown) (unknown) (no date) (unknown) (unknown) adenopathy or JVD. (units unknown) (unknown) (unknown) (no date) (unknown) (unknown) and episodes of urge incontinence. He provides no history that he can attribute (units unknown) (unknown) (unknown) (no date) (unknown) (unknown) bilaterally without palpable mass, fluid collection, or tenderness. 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 (units unknown) (unknown) (unknown) (no date) (unknown) (unknown) for stone disease. (units unknown) (unknown) (unknown) (no date) (unknown) (unknown) have occurred. If th ere are any questions, please contact the Medical Records (units unknown) (unknown) (unknown) (no date) (unknown) (unknown) hernia, mass, or organomegaly. (units unknown) (unknown) (unknown) (no date) (unknown) (unknown) hypotension. (units unknown) (unknown) (unknown) (no date) (unknown) (unknown) list were prescribed on or about that time. His PCP prescribed tamsulosin 0.4 (units unknown) (unknown) (unknown) (no date) (unknown) (unknown) marital status: (units unknown) (unknown) (unknown) (no date) (unknown) (unknown) may occur. Occasiona l wrong-word or 'sound-alike' substitutions may have (units unknown) (unknown) (unknown) (no date) (unknown) (unknown) mg at HS. He states that he noticed improvement in urinary frequency, but not (units unknown) (unknown) (unknown) (no date) (unknown) (unknown) no acute distress. H e walks with an altered gait. He uses a wheeled 4 point (units unknown) (unknown) (unknown) (no date) (unknown) (unknown) nontender. (units unknown) (unknown) (unknown) (no date) (unknown) (unknown) normal caliber. [place] is without lesion, rash, or mass. Testes descended (units unknown) (unknown) (unknown) (no date) (unknown) (unknown) normal contour and consistency. (units unknown) (unknown) (unknown) (no date) (unknown) (unknown) number of children: 5 (units unknown) (unknown) (unknown) (no date) (unknown) (unknown) occurred due to the inherent limitations of voice recognition software. Please (units unknown) (unknown) (unknown) (no date) (unknown) (unknown) opinion regarding approximately a 1 year history of urinary frequency, urgency, (units unknown) (unknown) (unknown) (no date) (unknown) (unknown) outside documents an d 5 pages of patient health history and documents for (units unknown) (unknown) (unknown) (no date) (unknown) (unknown) rationale for above recommendations and follow-up. (units unknown) (unknown) (unknown) (no date) (unknown) (unknown) read the note carefu lly and recognize, using context, where these substitutions (units unknown) (unknown) (unknown) (no date) (unknown) (unknown) software. Although every effort is made to edit content, phthalic acid purifier errors (units unknown) (unknown) (unknown) (no date) (unknown) (unknown) to the change in his urinary pattern. Denies that any of his current medication (units unknown) (unknown) (unknown) (no date) (unknown) (unknown) today is clear. PVR is 4 cc. He has no PSA history. (units unknown) (unknown) (unknown) (no date) (unknown) (unknown) urgency. They have a lso had some challenges with regards to symptomatic (units unknown) (unknown) (unknown) (no date) (unknown) (unknown) walker for balance a nd stability. (units unknown) (unknown) (unknown) (no date) (unknown) (unknown) were originally prescribed for management of underlying metabolic risk factors (units unknown) (unknown) (unknown) (no date) (unknown) (unknown) years. In 2004 he required a left ureteroscopic laser lithotripsy at [place] (units unknown) (unknown) Result panel 6 (unknown) (no date) (unknown) (unknown) (no value) (units unknown) (unknown) (unknown) (no date) (unknown) (unknown) #: [id number] (units unknown) (unknown) (unknown) (no date) (unknown) (unknown) (1) Lower urinary tr act symptoms (LUTS): (units unknown) (unknown) (unknown) (no date) (unknown) (unknown) (2) History of nephrolithiasis: (units unknown) (unknown) (unknown) (no date) (unknown) (unknown) (3) Urge incontinence: (units unknown) (unknown) (unknown) (no date) (unknown) (unknown) 10/21/22 (units unknown) (unknown) (unknown) (no date) (unknown) (unknown) 1. Trial tamsulosin 0.4 mg in a.m. at least 1/2 hour after breakfast. (units unknown) (unknown) (unknown) (no date) (unknown) (unknown) 10:32 (units unknown) (unknown) (unknown) (no date) (unknown) (unknown) 11:31 (units unknown) (unknown) (unknown) (no date) (unknown) (unknown) 2. DIETARY IRRITANT GUIDELINES-provided with explanation and verbal overview. (units unknown) (unknown) (unknown) (no date) (unknown) (unknown) 2019. (units unknown) (unknown) (unknown) (no date) (unknown) (unknown) 23 (units unknown) (unknown) (unknown) (no date) (unknown) (unknown) 3 (units unknown) (unknown) (unknown) (no date) (unknown) (unknown) 3. PSA. (units unknown) (unknown) (unknown) (no date) (unknown) (unknown) 31 (units unknown) (unknown) (unknown) (no date) (unknown) (unknown) 4. Consider noncontr ast CT-future given history of stone and possibility of (units unknown) (unknown) (unknown) (no date) (unknown) (unknown) 46 y/o M presents to clinic as a New Patient. PVR. UA for cytology (units unknown) (unknown) (unknown) (no date) (unknown) (unknown) :31 (units unknown) (unknown) (unknown) (no date) (unknown) (unknown) ADD (attention defic it disorder) (units unknown) (unknown) (unknown) (no date) (unknown) (unknown) Abdomen-round and protuberant. Bowel tones are normal active. No palpable (units unknown) (unknown) (unknown) (no date) (unknown) (unknown) Age/Sex: 46 / M Date of Service: (units unknown) (unknown) (unknown) (no date) (unknown) (unknown) All systems reviewed + are unremarkable except as noted in HPI and below (units unknown) (unknown) (unknown) (no date) (unknown) (unknown) Allergies (units unknown) (unknown) (unknown) (no date) (unknown) (unknown) [place] [address] (units unknown) (unknown) (unknown) (no date) (unknown) (unknown) Arthritis (units unknown) (unknown) (unknown) (no date) (unknown) (unknown) Assessment + Plan (units unknown) (unknown) (unknown) (no date) (unknown) (unknown) Attending Dr: Crystal Condon MD (units unknown) (unknown) (unknown) (no date) (unknown) (unknown) BMI 33.5 (units unknown) (unknown) (unknown) (no date) (unknown) (unknown) BP 116/76 (units unknown) (unknown) (unknown) (no date) (unknown) (unknown) Billing- Post Void Residual: Post Void Residual- [id number] (units unknown) (unknown) (unknown) (no date) (unknown) (unknown) Bladder volume: PVR = 4ml (units unknown) (unknown) (unknown) (no date) (unknown) (unknown) Blood Pressure Locat ion Lt brachial (units unknown) (unknown) (unknown) (no date) (unknown) (unknown) Chest pain (units unknown) (unknown) (unknown) (no date) (unknown) (unknown) Chest-equal and unlabored expansion bilaterally. (units unknown) (unknown) (unknown) (no date) (unknown) (unknown) Chief Complaint (units unknown) (unknown) (unknown) (no date) (unknown) (unknown) Chief Complaint: Low er urinary tract symptoms (units unknown) (unknown) (unknown) (no date) (unknown) (unknown) Code(s): (units unknown) (unknown) (unknown) (no date) (unknown) (unknown) Const (units unknown) (unknown) (unknown) (no date) (unknown) (unknown) : 1975 Acct:[id number] (units unknown) (unknown) (unknown) (no date) (unknown) (unknown) Depression (units unknown) (unknown) (unknown) (no date) (unknown) (unknown) Dept at . (units unknown) (unknown) (unknown) (no date) (unknown) (unknown) Details: (units unknown) (unknown) (unknown) (no date) (unknown) (unknown) Documented By: Crystal Condon MD 10/21/22 1012 (units unknown) (unknown) (unknown) (no date) (unknown) (unknown) Draft (units unknown) (unknown) (unknown) (no date) (unknown) (unknown) Encounter documentation, and billing-10 minutes (units unknown) (unknown) (unknown) (no date) (unknown) (unknown) Exam Narrative (units unknown) (unknown) (unknown) (no date) (unknown) (unknown) Exam Narrative: (units unknown) (unknown) (unknown) (no date) (unknown) (unknown) Exam (units unknown) (unknown) (unknown) (no date) (unknown) (unknown) Vstl-do-jaww encounter-40 minutes (units unknown) (unknown) (unknown) (no date) (unknown) (unknown) Family History (units unknown) (unknown) (unknown) (no date) (unknown) (unknown) Father Cancer (units unknown) (unknown) (unknown) (no date) (unknown) (unknown) GERD (gastroesophage al reflux disease) (units unknown) (unknown) (unknown) (no date) (unknown) (unknown) Genitalia-normal ne lt circumcised male phallus. Meatus is orthotopic and of (units unknown) (unknown) (unknown) (no date) (unknown) (unknown) H/O right knee surgery (units unknown) (unknown) (unknown) (no date) (unknown) (unknown) H/O shoulder surgery (units unknown) (unknown) (unknown) (no date) (unknown) (unknown) H/O vasectomy (units unknown) (unknown) (unknown) (no date) (unknown) (unknown) HPI (units unknown) (unknown) (unknown) (no date) (unknown) (unknown) He denies a known family history of renal or prostatic disease. Urinalysis (units unknown) (unknown) (unknown) (no date) (unknown) (unknown) He is a well-develop ed, moderately over nourished middle-aged male in (units unknown) (unknown) (unknown) (no date) (unknown) (unknown) He reports having a history of passing several stones bilaterally over several (units unknown) (unknown) (unknown) (no date) (unknown) (unknown) Head/neck-sclera are clear pupils are round and equal. Neck is without visible (units unknown) (unknown) (unknown) (no date) (unknown) (unknown) Heart-normal sinus rhythm. (units unknown) (unknown) (unknown) (no date) (unknown) (unknown) Height 5 ft 11 in (units unknown) (unknown) (unknown) (no date) (unknown) (unknown) History of knee surgery (units unknown) (unknown) (unknown) (no date) (unknown) (unknown) History of nephrolithiasis (units unknown) (unknown) (unknown) (no date) (unknown) (unknown) Hx of nephrolithotom y with removal of calculi (units unknown) (unknown) (unknown) (no date) (unknown) (unknown) Intake Note: (units unknown) (unknown) (unknown) (no date) (unknown) (unknown) Intake performed by: Hue Diaz (units unknown) (unknown) (unknown) (no date) (unknown) (unknown) Intake (units unknown) (unknown) (unknown) (no date) (unknown) (unknown) Intake- Clincial Staff (units unknown) (unknown) (unknown) (no date) (unknown) (unknown) [facility] (units unknown) (unknown) (unknown) (no date) (unknown) (unknown) Kidney stones (units unknown) (unknown) (unknown) (no date) (unknown) (unknown) Knee pain (units unknown) (unknown) (unknown) (no date) (unknown) (unknown) Loc: [facility] (units unknown) (unknown) (unknown) (no date) (unknown) (unknown) Lower urinary tract symptoms (LUTS) (units unknown) (unknown) (unknown) (no date) (unknown) (unknown) Medical History (Updated 10/21/22 @ 11:11 by Crystal Condon MD) (units unknown) (unknown) (unknown) (no date) (unknown) (unknown) Mother Cancer (units unknown) (unknown) (unknown) (no date) (unknown) (unknown) N39.41 - Urge incontinence (units unknown) (unknown) (unknown) (no date) (unknown) (unknown) No Known Drug Allerg ies Allergy (Verified 10/21/22 10:19) (units unknown) (unknown) (unknown) (no date) (unknown) (unknown) VISHNU (obstructive sle ep apnea) (units unknown) (unknown) (unknown) (no date) (unknown) (unknown) Office Procedures (units unknown) (unknown) (unknown) (no date) (unknown) (unknown) Orders (units unknown) (unknown) (unknown) (no date) (unknown) (unknown) Orders: (units unknown) (unknown) (unknown) (no date) (unknown) (unknown) Oxygen Delivery Meth od room air (units unknown) (unknown) (unknown) (no date) (unknown) (unknown) PFSH (units unknown) (unknown) (unknown) (no date) (unknown) (unknown) POC Urine Dip Today R39.9 - Unspecified symptoms and signs involving the (units unknown) (unknown) (unknown) (no date) (unknown) (unknown) PTSD (post-traumatic stress disorder) (units unknown) (unknown) (unknown) (no date) (unknown) (unknown) Patient: Esdras Stephen Jr MR (units unknown) (unknown) (unknown) (no date) (unknown) (unknown) Plan (units unknown) (unknown) (unknown) (no date) (unknown) (unknown) Position Sitting (units unknown) (unknown) (unknown) (no date) (unknown) (unknown) Procedure performed by: Hue Diaz (units unknown) (unknown) (unknown) (no date) (unknown) (unknown) Pulse 95 H (units unknown) (unknown) (unknown) (no date) (unknown) (unknown) Pulse Oximetry (%) 96 (units unknown) (unknown) (unknown) (no date) (unknown) (unknown) Pulse Source Monitor (units unknown) (unknown) (unknown) (no date) (unknown) (unknown) R39.9 - Unspecified symptoms and signs involving the genitourinary system (units unknown) (unknown) (unknown) (no date) (unknown) (unknown) ROS (units unknown) (unknown) (unknown) (no date) (unknown) (unknown) Ian is a 46-year-old male presenting today for (units unknown) (unknown) (unknown) (no date) (unknown) (unknown) Reason For Visit (units unknown) (unknown) (unknown) (no date) (unknown) (unknown) Rectal-tone is tanya l in the vault is empty. Prostate measures 15-20 g with (units unknown) (unknown) (unknown) (no date) (unknown) (unknown) Residual: post void (units unknown) (unknown) (unknown) (no date) (unknown) (unknown) Respiration 16 (units unknown) (unknown) (unknown) (no date) (unknown) (unknown) Results (units unknown) (unknown) (unknown) (no date) (unknown) (unknown) Review of clinical chart note history, patient data including 18 pages of (units unknown) (unknown) (unknown) (no date) (unknown) (unknown) Reviewed findings, discussed impression, discussed options and explained (units unknown) (unknown) (unknown) (no date) (unknown) (unknown) Seizure disorder (units unknown) (unknown) (unknown) (no date) (unknown) (unknown) Signed By: (units unknown) (unknown) (unknown) (no date) (unknown) (unknown) Smoking Status: Freddy hopkins smoker (units unknown) (unknown) (unknown) (no date) (unknown) (unknown) Social History (units unknown) (unknown) (unknown) (no date) (unknown) (unknown) Status: Acute (units unknown) (unknown) (unknown) (no date) (unknown) (unknown) Surgical History (units unknown) (unknown) (unknown) (no date) (unknown) (unknown) [place]. He believes t hat allopurinol, hydrochlorothiazide, and potassium citrate (units unknown) (unknown) (unknown) (no date) (unknown) (unknown) The patient has also undergone vasectomy in 2014 and subsequent reversal in (units unknown) (unknown) (unknown) (no date) (unknown) (unknown) This note may have b een all or partially generated using voice recognition (units unknown) (unknown) (unknown) (no date) (unknown) (unknown) Tobacco Status (units unknown) (unknown) (unknown) (no date) (unknown) (unknown) Urge incontinence (units unknown) (unknown) (unknown) (no date) (unknown) (unknown) Urine Appearance Jalen ar Last Edit by Hue Diaz RN on 10/21/22 11:31 (units unknown) (unknown) (unknown) (no date) (unknown) (unknown) Urine Bilirubin Negative Last Edit by Hue Diaz RN on 10/21/22 11:31 (units unknown) (unknown) (unknown) (no date) (unknown) (unknown) Urine Blood Negative Last Edit by Hue Diaz RN on 10/21/22 11:31 (units unknown) (unknown) (unknown) (no date) (unknown) (unknown) Urine Color Yellow L ast Edit by Hue Diaz RN on 10/21/22 11:31 (units unknown) (unknown) (unknown) (no date) (unknown) (unknown) Urine Dipstick (units unknown) (unknown) (unknown) (no date) (unknown) (unknown) Urine Glucose Negati ve mg/dL Last Edit by Hue Diaz RN on 10/21/22 11: (units unknown) (unknown) (unknown) (no date) (unknown) (unknown) Urine Ketones Negati ve Last Edit by Hue Diaz RN on 10/21/22 11:31 (units unknown) (unknown) (unknown) (no date) (unknown) (unknown) Urine Leukocyte Esterase Negative Last Edit by Hue Diaz RN on units unknown) (unknown) (unknown) (no date) (unknown) (unknown) Urine Nitrate Negati ve Last Edit by Hue Diaz RN on 10/21/22 11:31 (units unknown) (unknown) (unknown) (no date) (unknown) (unknown) Urine Protein Negati ve Last Edit by Hue Diaz RN on 10/21/22 11:31 (units unknown) (unknown) (unknown) (no date) (unknown) (unknown) Urine Specific Gravi ty 1.015 Last Edit by Hue Diaz RN on 10/21/22 11 (units unknown) (unknown) (unknown) (no date) (unknown) (unknown) Urine Urobilinogen - 0.2 mg/dL Last Edit by Hue Diaz RN on (units unknown) (unknown) (unknown) (no date) (unknown) (unknown) Urine pH 6.0 Last Ed it by Hue Diaz RN on 10/21/22 11:31 (units unknown) (unknown) (unknown) (no date) (unknown) (unknown) Urology Office Visit (units unknown) (unknown) (unknown) (no date) (unknown) (unknown) Visit Reasons: MANAGER OF INTERNAL AUDIT, P VR, UA for cytology (units unknown) (unknown) (unknown) (no date) (unknown) (unknown) Vitals (units unknown) (unknown) (unknown) (no date) (unknown) (unknown) Weight 240 lb (units unknown) (unknown) (unknown) (no date) (unknown) (unknown) Z87.442 - Personal history of urinary calculi (units unknown) (unknown) (unknown) (no date) (unknown) (unknown) adenopathy or JVD. (units unknown) (unknown) (unknown) (no date) (unknown) (unknown) and episodes of urge incontinence. He provides no history that he can attribute (units unknown) (unknown) (unknown) (no date) (unknown) (unknown) bilaterally without palpable mass, fluid collection, or tenderness. 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 (units unknown) (unknown) (unknown) (no date) (unknown) (unknown) for stone disease. (units unknown) (unknown) (unknown) (no date) (unknown) (unknown) genitourinary system (units unknown) (unknown) (unknown) (no date) (unknown) (unknown) have occurred. If th ere are any questions, please contact the Medical Records (units unknown) (unknown) (unknown) (no date) (unknown) (unknown) hernia, mass, or organomegaly. (units unknown) (unknown) (unknown) (no date) (unknown) (unknown) hypotension. (units unknown) (unknown) (unknown) (no date) (unknown) (unknown) list were prescribed on or about that time. His PCP prescribed tamsulosin 0.4 (units unknown) (unknown) (unknown) (no date) (unknown) (unknown) marital status: (units unknown) (unknown) (unknown) (no date) (unknown) (unknown) may occur. Occasiona l wrong-word or 'sound-alike' substitutions may have (units unknown) (unknown) (unknown) (no date) (unknown) (unknown) mg at HS. He states that he noticed improvement in urinary frequency, but not (units unknown) (unknown) (unknown) (no date) (unknown) (unknown) no acute distress. H e walks with an altered gait. He uses a wheeled 4 point (units unknown) (unknown) (unknown) (no date) (unknown) (unknown) nontender. (units unknown) (unknown) (unknown) (no date) (unknown) (unknown) normal caliber. [place] is without lesion, rash, or mass. Testes descended (units unknown) (unknown) (unknown) (no date) (unknown) (unknown) normal contour and consistency. (units unknown) (unknown) (unknown) (no date) (unknown) (unknown) number of children: 5 (units unknown) (unknown) (unknown) (no date) (unknown) (unknown) occurred due to the inherent limitations of voice recognition software. Please (units unknown) (unknown) (unknown) (no date) (unknown) (unknown) opinion regarding approximately a 1 year history of urinary frequency, urgency, (units unknown) (unknown) (unknown) (no date) (unknown) (unknown) outside documents an d 5 pages of patient health history and documents for (units unknown) (unknown) (unknown) (no date) (unknown) (unknown) rationale for above recommendations and follow-up. (units unknown) (unknown) (unknown) (no date) (unknown) (unknown) read the note carefu lly and recognize, using context, where these substitutions (units unknown) (unknown) (unknown) (no date) (unknown) (unknown) software. Although every effort is made to edit content, phthalic acid purifier errors (units unknown) (unknown) (unknown) (no date) (unknown) (unknown) to the change in his urinary pattern. Denies that any of his current medication (units unknown) (unknown) (unknown) (no date) (unknown) (unknown) today is clear. PVR is 4 cc. He has no PSA history. (units unknown) (unknown) (unknown) (no date) (unknown) (unknown) urgency. They have a lso had some challenges with regards to symptomatic (units unknown) (unknown) (unknown) (no date) (unknown) (unknown) walker for balance a nd stability. (units unknown) (unknown) (unknown) (no date) (unknown) (unknown) were originally prescribed for management of underlying metabolic risk factors (units unknown) (unknown) (unknown) (no date) (unknown) (unknown) years. In 2004 he required a left ureteroscopic laser lithotripsy at [place] (units unknown) (unknown) Result panel 7 (unknown) (no date) (unknown) (unknown) (no value) (units unknown) (unknown) (unknown) (no date) (unknown) (unknown) #: [id number] (units unknown) (unknown) (unknown) (no date) (unknown) (unknown) (1) Lower urinary tr act symptoms (LUTS): (units unknown) (unknown) (unknown) (no date) (unknown) (unknown) (2) History of nephrolithiasis: (units unknown) (unknown) (unknown) (no date) (unknown) (unknown) (3) Urge incontinence: (units unknown) (unknown) (unknown) (no date) (unknown) (unknown) 10/21/22 1241 (units unknown) (unknown) (unknown) (no date) (unknown) (unknown) 10/21/22 (units unknown) (unknown) (unknown) (no date) (unknown) (unknown) 1. Trial tamsulosin 0.4 mg in a.m. at least 1/2 hour after breakfast. (units unknown) (unknown) (unknown) (no date) (unknown) (unknown) 10:32 (units unknown) (unknown) (unknown) (no date) (unknown) (unknown) 11:31 (units unknown) (unknown) (unknown) (no date) (unknown) (unknown) 2. DIETARY IRRITANT GUIDELINES-provided with explanation and verbal overview. (units unknown) (unknown) (unknown) (no date) (unknown) (unknown) 2019. (units unknown) (unknown) (unknown) (no date) (unknown) (unknown) 23 (units unknown) (unknown) (unknown) (no date) (unknown) (unknown) 3 (units unknown) (unknown) (unknown) (no date) (unknown) (unknown) 3. PSA. (units unknown) (unknown) (unknown) (no date) (unknown) (unknown) 31 (units unknown) (unknown) (unknown) (no date) (unknown) (unknown) 4. Consider noncontr ast CT-future given history of stone and possibility of (units unknown) (unknown) (unknown) (no date) (unknown) (unknown) 46 y/o M presents to clinic as a New Patient. PVR. UA for cytology (units unknown) (unknown) (unknown) (no date) (unknown) (unknown) :31 (units unknown) (unknown) (unknown) (no date) (unknown) (unknown) ADD (attention defic it disorder) (units unknown) (unknown) (unknown) (no date) (unknown) (unknown) Abdomen-round and protuberant. Bowel tones are normal active. No palpable (units unknown) (unknown) (unknown) (no date) (unknown) (unknown) Age/Sex: 46 / M Date of Service: (units unknown) (unknown) (unknown) (no date) (unknown) (unknown) All systems reviewed + are unremarkable except as noted in HPI and below (units unknown) (unknown) (unknown) (no date) (unknown) (unknown) Allergies (units unknown) (unknown) (unknown) (no date) (unknown) (unknown) [place] [address] (units unknown) (unknown) (unknown) (no date) (unknown) (unknown) Arthritis (units unknown) (unknown) (unknown) (no date) (unknown) (unknown) Assessment + Plan (units unknown) (unknown) (unknown) (no date) (unknown) (unknown) Attending Dr: Crystal Condon MD (units unknown) (unknown) (unknown) (no date) (unknown) (unknown) BMI 33.5 (units unknown) (unknown) (unknown) (no date) (unknown) (unknown) BP 116/76 (units unknown) (unknown) (unknown) (no date) (unknown) (unknown) Billing- Post Void Residual: Post Void Residual- 44845 (units unknown) (unknown) (unknown) (no date) (unknown) (unknown) Bladder volume: PVR = 4ml (units unknown) (unknown) (unknown) (no date) (unknown) (unknown) Blood Pressure Locat ion Lt brachial (units unknown) (unknown) (unknown) (no date) (unknown) (unknown) Chest pain (units unknown) (unknown) (unknown) (no date) (unknown) (unknown) Chest-equal and unlabored expansion bilaterally. (units unknown) (unknown) (unknown) (no date) (unknown) (unknown) Chief Complaint (units unknown) (unknown) (unknown) (no date) (unknown) (unknown) Chief Complaint: Low er urinary tract symptoms (units unknown) (unknown) (unknown) (no date) (unknown) (unknown) Code(s): (units unknown) (unknown) (unknown) (no date) (unknown) (unknown) Const (units unknown) (unknown) (unknown) (no date) (unknown) (unknown) : 1975 Acct:[id number] (units unknown) (unknown) (unknown) (no date) (unknown) (unknown) Depression (units unknown) (unknown) (unknown) (no date) (unknown) (unknown) Dept at . (units unknown) (unknown) (unknown) (no date) (unknown) (unknown) Details: (units unknown) (unknown) (unknown) (no date) (unknown) (unknown) Documented By: Crystal Condon MD 10/21/22 1012 (units unknown) (unknown) (unknown) (no date) (unknown) (unknown) Encounter documentation, and billing-10 minutes (units unknown) (unknown) (unknown) (no date) (unknown) (unknown) Exam Narrative (units unknown) (unknown) (unknown) (no date) (unknown) (unknown) Exam Narrative: (units unknown) (unknown) (unknown) (no date) (unknown) (unknown) Exam (units unknown) (unknown) (unknown) (no date) (unknown) (unknown) Bhin-xr-uhde encounter-40 minutes (units unknown) (unknown) (unknown) (no date) (unknown) (unknown) Family History (units unknown) (unknown) (unknown) (no date) (unknown) (unknown) Father Cancer (units unknown) (unknown) (unknown) (no date) (unknown) (unknown) GERD (gastroesophage al reflux disease) (units unknown) (unknown) (unknown) (no date) (unknown) (unknown) Genitalia-normal en lt circumcised male phallus. Meatus is orthotopic and of (units unknown) (unknown) (unknown) (no date) (unknown) (unknown) H/O right knee surgery (units unknown) (unknown) (unknown) (no date) (unknown) (unknown) H/O shoulder surgery (units unknown) (unknown) (unknown) (no date) (unknown) (unknown) H/O vasectomy (units unknown) (unknown) (unknown) (no date) (unknown) (unknown) HPI (units unknown) (unknown) (unknown) (no date) (unknown) (unknown) He denies a known family history of renal or prostatic disease. Urinalysis (units unknown) (unknown) (unknown) (no date) (unknown) (unknown) He is a well-develop ed, moderately over nourished middle-aged male in (units unknown) (unknown) (unknown) (no date) (unknown) (unknown) He reports having a history of passing several stones bilaterally over several (units unknown) (unknown) (unknown) (no date) (unknown) (unknown) Head/neck-sclera are clear pupils are round and equal. Neck is without visible (units unknown) (unknown) (unknown) (no date) (unknown) (unknown) Heart-normal sinus rhythm. (units unknown) (unknown) (unknown) (no date) (unknown) (unknown) Height 5 ft 11 in (units unknown) (unknown) (unknown) (no date) (unknown) (unknown) History of knee surgery (units unknown) (unknown) (unknown) (no date) (unknown) (unknown) History of nephrolithiasis (units unknown) (unknown) (unknown) (no date) (unknown) (unknown) Hx of nephrolithotom y with removal of calculi (units unknown) (unknown) (unknown) (no date) (unknown) (unknown) Intake Note: (units unknown) (unknown) (unknown) (no date) (unknown) (unknown) Intake performed by: Hue Diaz (units unknown) (unknown) (unknown) (no date) (unknown) (unknown) Intake (units unknown) (unknown) (unknown) (no date) (unknown) (unknown) Intake- Clincial Staff (units unknown) (unknown) (unknown) (no date) (unknown) (unknown) [facility] (units unknown) (unknown) (unknown) (no date) (unknown) (unknown) Kidney stones (units unknown) (unknown) (unknown) (no date) (unknown) (unknown) Knee pain (units unknown) (unknown) (unknown) (no date) (unknown) (unknown) Loc: [facility] (units unknown) (unknown) (unknown) (no date) (unknown) (unknown) Lower urinary tract symptoms (LUTS) (units unknown) (unknown) (unknown) (no date) (unknown) (unknown) Medical History (Updated 10/21/22 @ 11:11 by Crystal Condon MD) (units unknown) (unknown) (unknown) (no date) (unknown) (unknown) Mother Cancer (units unknown) (unknown) (unknown) (no date) (unknown) (unknown) N39.41 - Urge incontinence (units unknown) (unknown) (unknown) (no date) (unknown) (unknown) No Known Drug Allerg ies Allergy (Verified 10/21/22 10:19) (units unknown) (unknown) (unknown) (no date) (unknown) (unknown) VISHNU (obstructive sle ep apnea) (units unknown) (unknown) (unknown) (no date) (unknown) (unknown) Office Procedures (units unknown) (unknown) (unknown) (no date) (unknown) (unknown) Orders (units unknown) (unknown) (unknown) (no date) (unknown) (unknown) Orders: (units unknown) (unknown) (unknown) (no date) (unknown) (unknown) Oxygen Delivery Meth od room air (units unknown) (unknown) (unknown) (no date) (unknown) (unknown) PFSH (units unknown) (unknown) (unknown) (no date) (unknown) (unknown) POC Urine Dip Today R39.9 - Unspecified symptoms and signs involving the (units unknown) (unknown) (unknown) (no date) (unknown) (unknown) PTSD (post-traumatic stress disorder) (units unknown) (unknown) (unknown) (no date) (unknown) (unknown) Patient: Esdras Stephen Jr MR (units unknown) (unknown) (unknown) (no date) (unknown) (unknown) Plan (units unknown) (unknown) (unknown) (no date) (unknown) (unknown) Position Sitting (units unknown) (unknown) (unknown) (no date) (unknown) (unknown) Procedure performed by: Hue Diaz (units unknown) (unknown) (unknown) (no date) (unknown) (unknown) Pulse 95 H (units unknown) (unknown) (unknown) (no date) (unknown) (unknown) Pulse Oximetry (%) 96 (units unknown) (unknown) (unknown) (no date) (unknown) (unknown) Pulse Source Monitor (units unknown) (unknown) (unknown) (no date) (unknown) (unknown) R39.9 - Unspecified symptoms and signs involving the genitourinary system (units unknown) (unknown) (unknown) (no date) (unknown) (unknown) ROS (units unknown) (unknown) (unknown) (no date) (unknown) (unknown) Ian is a 46-year-old male presenting today for (units unknown) (unknown) (unknown) (no date) (unknown) (unknown) Reason For Visit (units unknown) (unknown) (unknown) (no date) (unknown) (unknown) Rectal-tone is tanya l in the vault is empty. Prostate measures 15-20 g with (units unknown) (unknown) (unknown) (no date) (unknown) (unknown) Residual: post void (units unknown) (unknown) (unknown) (no date) (unknown) (unknown) Respiration 16 (units unknown) (unknown) (unknown) (no date) (unknown) (unknown) Results (units unknown) (unknown) (unknown) (no date) (unknown) (unknown) Review of clinical chart note history, patient data including 18 pages of (units unknown) (unknown) (unknown) (no date) (unknown) (unknown) Reviewed findings, discussed impression, discussed options and explained (units unknown) (unknown) (unknown) (no date) (unknown) (unknown) Seizure disorder (units unknown) (unknown) (unknown) (no date) (unknown) (unknown) Signed By: <Electronically signed by Crystal Condon MD> (units unknown) (unknown) (unknown) (no date) (unknown) (unknown) Signed (units unknown) (unknown) (unknown) (no date) (unknown) (unknown) Smoking Status: Freddy hopkins smoker (units unknown) (unknown) (unknown) (no date) (unknown) (unknown) Social History (units unknown) (unknown) (unknown) (no date) (unknown) (unknown) Status: Acute (units unknown) (unknown) (unknown) (no date) (unknown) (unknown) Surgical History (units unknown) (unknown) (unknown) (no date) (unknown) (unknown) [place]. He believes t hat allopurinol, hydrochlorothiazide, and potassium citrate (units unknown) (unknown) (unknown) (no date) (unknown) (unknown) The patient has also undergone vasectomy in 2013 and subsequent reversal in (units unknown) (unknown) (unknown) (no date) (unknown) (unknown) This note may have b een all or partially generated using voice recognition (units unknown) (unknown) (unknown) (no date) (unknown) (unknown) Tobacco Status (units unknown) (unknown) (unknown) (no date) (unknown) (unknown) Urge incontinence (units unknown) (unknown) (unknown) (no date) (unknown) (unknown) Urine Appearance Jalen ar Last Edit by Hue Diaz RN on 10/21/22 11:31 (units unknown) (unknown) (unknown) (no date) (unknown) (unknown) Urine Bilirubin Negative Last Edit by Hue Diaz RN on 10/21/22 11:31 (units unknown) (unknown) (unknown) (no date) (unknown) (unknown) Urine Blood Negative Last Edit by Hue Diaz RN on 10/21/22 11:31 (units unknown) (unknown) (unknown) (no date) (unknown) (unknown) Urine Color Yellow L ast Edit by Hue Diaz RN on 10/21/22 11:31 (units unknown) (unknown) (unknown) (no date) (unknown) (unknown) Urine Dipstick (units unknown) (unknown) (unknown) (no date) (unknown) (unknown) Urine Glucose Negati ve mg/dL Last Edit by Hue Diaz RN on 10/21/22 11: (units unknown) (unknown) (unknown) (no date) (unknown) (unknown) Urine Ketones Negati ve Last Edit by Hue Diaz RN on 10/21/22 11:31 (units unknown) (unknown) (unknown) (no date) (unknown) (unknown) Urine Leukocyte Esterase Negative Last Edit by Hue Diaz RN on (units unknown) (unknown) (unknown) (no date) (unknown) (unknown) Urine Nitrate Negati ve Last Edit by Hue Diaz RN on 10/21/22 11:31 (units unknown) (unknown) (unknown) (no date) (unknown) (unknown) Urine Protein Negati ve Last Edit by Hue Diaz RN on 10/21/22 11:31 (units unknown) (unknown) (unknown) (no date) (unknown) (unknown) Urine Specific Gravi ty 1.015 Last Edit by Hue Diaz RN on 10/21/22 11 (units unknown) (unknown) (unknown) (no date) (unknown) (unknown) Urine Urobilinogen - 0.2 mg/dL Last Edit by Hue Diaz RN on (units unknown) (unknown) (unknown) (no date) (unknown) (unknown) Urine pH 6.0 Last Ed it by Hue Diaz RN on 10/21/22 11:31 (units unknown) (unknown) (unknown) (no date) (unknown) (unknown) Urology Office Visit (units unknown) (unknown) (unknown) (no date) (unknown) (unknown) Visit Reasons: MANAGER OF INTERNAL AUDIT, P VR, UA for cytology (units unknown) (unknown) (unknown) (no date) (unknown) (unknown) Vitals (units unknown) (unknown) (unknown) (no date) (unknown) (unknown) Weight 240 lb (units unknown) (unknown) (unknown) (no date) (unknown) (unknown) Z87.442 - Personal history of urinary calculi (units unknown) (unknown) (unknown) (no date) (unknown) (unknown) adenopathy or JVD. (units unknown) (unknown) (unknown) (no date) (unknown) (unknown) and episodes of urge incontinence. He provides no history that he can attribute (units unknown) (unknown) (unknown) (no date) (unknown) (unknown) ay occur. Occasional wrong-word or 'sound-alike' substitutions may have (units unknown) (unknown) (unknown) (no date) (unknown) (unknown) bilaterally without palpable mass, fluid collection, or tenderness. 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 (units unknown) (unknown) (unknown) (no date) (unknown) (unknown) for stone disease. (units unknown) (unknown) (unknown) (no date) (unknown) (unknown) genitourinary system (units unknown) (unknown) (unknown) (no date) (unknown) (unknown) have occurred. If th ere are any questions, please contact the Medical Records (units unknown) (unknown) (unknown) (no date) (unknown) (unknown) hernia, mass, or organomegaly. (units unknown) (unknown) (unknown) (no date) (unknown) (unknown) hypotension. (units unknown) (unknown) (unknown) (no date) (unknown) (unknown) list were prescribed on or about that time. His PCP prescribed tamsulosin 0.4 (units unknown) (unknown) (unknown) (no date) (unknown) (unknown) marital status: (units unknown) (unknown) (unknown) (no date) (unknown) (unknown) mg at HS. He states that he noticed improvement in urinary frequency, but not (units unknown) (unknown) (unknown) (no date) (unknown) (unknown) no acute distress. H e walks with an altered gait. He uses a wheeled 4 point (units unknown) (unknown) (unknown) (no date) (unknown) (unknown) nontender. (units unknown) (unknown) (unknown) (no date) (unknown) (unknown) normal caliber. [place] is without lesion, rash, or mass. Testes descended (units unknown) (unknown) (unknown) (no date) (unknown) (unknown) normal contour and consistency. (units unknown) (unknown) (unknown) (no date) (unknown) (unknown) number of children: 5 (units unknown) (unknown) (unknown) (no date) (unknown) (unknown) occurred due to the inherent limitations of voice recognition software. Please (units unknown) (unknown) (unknown) (no date) (unknown) (unknown) opinion regarding approximately a 1 year history of urinary frequency, urgency, (units unknown) (unknown) (unknown) (no date) (unknown) (unknown) outside documents an d 5 pages of patient health history and documents for (units unknown) (unknown) (unknown) (no date) (unknown) (unknown) rationale for above recommendations and follow-up. (units unknown) (unknown) (unknown) (no date) (unknown) (unknown) read the note carefu lly and recognize, using context, where these substitutions (units unknown) (unknown) (unknown) (no date) (unknown) (unknown) software. Although every effort is made to edit content, phthalic acid purifier errors m (units unknown) (unknown) (unknown) (no date) (unknown) (unknown) to the change in his urinary pattern. Denies that any of his current medication (units unknown) (unknown) (unknown) (no date) (unknown) (unknown) today is clear. PVR is 4 cc. He has no PSA history. (units unknown) (unknown) (unknown) (no date) (unknown) (unknown) urgency. They have a lso had some challenges with regards to symptomatic (units unknown) (unknown) (unknown) (no date) (unknown) (unknown) walker for balance a nd stability. (units unknown) (unknown) (unknown) (no date) (unknown) (unknown) were originally prescribed for management of underlying metabolic risk factors (units unknown) (unknown) (unknown) (no date) (unknown) (unknown) years. In 2004 he required a left ureteroscopic laser lithotripsy at [place] (units unknown) (unknown) Result panel 8 (unknown) (no date) (unknown) (unknown) (no value) (units unknown) (unknown) (unknown) (no date) (unknown) (unknown) #: [id number] (units unknown) (unknown) (unknown) (no date) (unknown) (unknown) 12/16/22 (units unknown) (unknown) (unknown) (no date) (unknown) (unknown) 47 year old male presents to clinic for a 6-8 week follow up with PSA review. (units unknown) (unknown) (unknown) (no date) (unknown) (unknown) ADD (attention defic it disorder) (units unknown) (unknown) (unknown) (no date) (unknown) (unknown) Age/Sex: 47 / M Date of Service: (units unknown) (unknown) (unknown) (no date) (unknown) (unknown) Allergies (units unknown) (unknown) (unknown) (no date) (unknown) (unknown) [place] [address] (units unknown) (unknown) (unknown) (no date) (unknown) (unknown) Arthritis (units unknown) (unknown) (unknown) (no date) (unknown) (unknown) Attending Dr: Crystal Condon MD (units unknown) (unknown) (unknown) (no date) (unknown) (unknown) Chest pain (units unknown) (unknown) (unknown) (no date) (unknown) (unknown) : 1975 Acct:[id number] (units unknown) (unknown) (unknown) (no date) (unknown) (unknown) Depression (units unknown) (unknown) (unknown) (no date) (unknown) (unknown) Dept at . (units unknown) (unknown) (unknown) (no date) (unknown) (unknown) Documented By: Crystal Condon MD 12/16/22 1057 (units unknown) (unknown) (unknown) (no date) (unknown) (unknown) Draft (units unknown) (unknown) (unknown) (no date) (unknown) (unknown) Family History (units unknown) (unknown) (unknown) (no date) (unknown) (unknown) Father Cancer (units unknown) (unknown) (unknown) (no date) (unknown) (unknown) GERD (gastroesophage al reflux disease) (units unknown) (unknown) (unknown) (no date) (unknown) (unknown) H/O right knee surgery (units unknown) (unknown) (unknown) (no date) (unknown) (unknown) H/O shoulder surgery (units unknown) (unknown) (unknown) (no date) (unknown) (unknown) H/O vasectomy (units unknown) (unknown) (unknown) (no date) (unknown) (unknown) History of knee surgery (units unknown) (unknown) (unknown) (no date) (unknown) (unknown) History of nephrolithiasis (units unknown) (unknown) (unknown) (no date) (unknown) (unknown) Hx of nephrolithotom y with removal of calculi (units unknown) (unknown) (unknown) (no date) (unknown) (unknown) Intake Note: (units unknown) (unknown) (unknown) (no date) (unknown) (unknown) Intake performed by: Meena Miller (units unknown) (unknown) (unknown) (no date) (unknown) (unknown) Intake (units unknown) (unknown) (unknown) (no date) (unknown) (unknown) Intake- Clincial Staff (units unknown) (unknown) (unknown) (no date) (unknown) (unknown) [facility] (units unknown) (unknown) (unknown) (no date) (unknown) (unknown) Kidney stones (units unknown) (unknown) (unknown) (no date) (unknown) (unknown) Knee pain (units unknown) (unknown) (unknown) (no date) (unknown) (unknown) Loc: [facility] (units unknown) (unknown) (unknown) (no date) (unknown) (unknown) Lower urinary tract symptoms (LUTS) (units unknown) (unknown) (unknown) (no date) (unknown) (unknown) Medical History (Updated 10/21/22 @ 11:11 by Crystal Condon MD) (units unknown) (unknown) (unknown) (no date) (unknown) (unknown) Mother Cancer (units unknown) (unknown) (unknown) (no date) (unknown) (unknown) No Known Drug Allerg ies Allergy (Verified 10/21/22 10:19) (units unknown) (unknown) (unknown) (no date) (unknown) (unknown) VISHNU (obstructive sle ep apnea) (units unknown) (unknown) (unknown) (no date) (unknown) (unknown) PFSH (units unknown) (unknown) (unknown) (no date) (unknown) (unknown) PTSD (post-traumatic stress disorder) (units unknown) (unknown) (unknown) (no date) (unknown) (unknown) Patient: Esdras Stephen Jr MR (units unknown) (unknown) (unknown) (no date) (unknown) (unknown) Reason For Visit (units unknown) (unknown) (unknown) (no date) (unknown) (unknown) Seizure disorder (units unknown) (unknown) (unknown) (no date) (unknown) (unknown) Signed By: (units unknown) (unknown) (unknown) (no date) (unknown) (unknown) Smoking Status: [place] sandeep smoker (units unknown) (unknown) (unknown) (no date) (unknown) (unknown) Social History (units unknown) (unknown) (unknown) (no date) (unknown) (unknown) Surgical History (units unknown) (unknown) (unknown) (no date) (unknown) (unknown) This note may have b een all or partially generated using voice recognition (units unknown) (unknown) (unknown) (no date) (unknown) (unknown) Tobacco Status (units unknown) (unknown) (unknown) (no date) (unknown) (unknown) Urge incontinence (units unknown) (unknown) (unknown) (no date) (unknown) (unknown) Urology Office Visit (units unknown) (unknown) (unknown) (no date) (unknown) (unknown) Visit Reasons: 6-8WK OV, PSA (units unknown) (unknown) (unknown) (no date) (unknown) (unknown) have occurred. If th ere are any questions, please contact the Medical Records (units unknown) (unknown) (unknown) (no date) (unknown) (unknown) marital status: (units unknown) (unknown) (unknown) (no date) (unknown) (unknown) may occur. Occasiona l wrong-word or 'sound-alike' substitutions may have (units unknown) (unknown) (unknown) (no date) (unknown) (unknown) number of children: 5 (units unknown) (unknown) (unknown) (no date) (unknown) (unknown) occurred due to the inherent limitations of voice recognition software. Please (units unknown) (unknown) (unknown) (no date) (unknown) (unknown) read the note carefu lly and recognize, using context, where these substitutions (units unknown) (unknown) (unknown) (no date) (unknown) (unknown) software. Although every effort is made to edit content, phthalic acid purifier errors (units unknown) (unknown) Result panel 9 (unknown) (no date) (unknown) (unknown) (no value) (units unknown) (unknown) (unknown) (no date) (unknown) (unknown) #: [id number] (units unknown) (unknown) (unknown) (no date) (unknown) (unknown) 12/16/22 (units unknown) (unknown) (unknown) (no date) (unknown) (unknown) 12/16/22] (units unknown) (unknown) (unknown) (no date) (unknown) (unknown) 11:04 (units unknown) (unknown) (unknown) (no date) (unknown) (unknown) 47 year old male presents to clinic for a 6-8 week follow up with PSA review. (units unknown) (unknown) (unknown) (no date) (unknown) (unknown) ADD (attention defic it disorder) (units unknown) (unknown) (unknown) (no date) (unknown) (unknown) Age/Sex: 47 / M Date of Service: (units unknown) (unknown) (unknown) (no date) (unknown) (unknown) Allergies (units unknown) (unknown) (unknown) (no date) (unknown) (unknown) [place] [id number] (units unknown) (unknown) (unknown) (no date) (unknown) (unknown) Arthritis (units unknown) (unknown) (unknown) (no date) (unknown) (unknown) Attending Dr: Crystal Condon MD (units unknown) (unknown) (unknown) (no date) (unknown) (unknown) BP 134/80 (units unknown) (unknown) (unknown) (no date) (unknown) (unknown) Blood Pressure Locat ion Rt brachial (units unknown) (unknown) (unknown) (no date) (unknown) (unknown) Chest pain (units unknown) (unknown) (unknown) (no date) (unknown) (unknown) Confirmed 12/16/22] (units unknown) (unknown) (unknown) (no date) (unknown) (unknown) : 1975 Acct:[id number] (units unknown) (unknown) (unknown) (no date) (unknown) (unknown) Depression (units unknown) (unknown) (unknown) (no date) (unknown) (unknown) Dept at . (units unknown) (unknown) (unknown) (no date) (unknown) (unknown) Documented By: Crystal Condon MD 12/16/22 1057 (units unknown) (unknown) (unknown) (no date) (unknown) (unknown) Draft (units unknown) (unknown) (unknown) (no date) (unknown) (unknown) Family History (units unknown) (unknown) (unknown) (no date) (unknown) (unknown) Father Cancer (units unknown) (unknown) (unknown) (no date) (unknown) (unknown) GERD (gastroesophage al reflux disease) (units unknown) (unknown) (unknown) (no date) (unknown) (unknown) H/O right knee surgery (units unknown) (unknown) (unknown) (no date) (unknown) (unknown) H/O shoulder surgery (units unknown) (unknown) (unknown) (no date) (unknown) (unknown) H/O vasectomy (units unknown) (unknown) (unknown) (no date) (unknown) (unknown) History of knee surgery (units unknown) (unknown) (unknown) (no date) (unknown) (unknown) History of nephrolithiasis (units unknown) (unknown) (unknown) (no date) (unknown) (unknown) Hx of nephrolithotom y with removal of calculi (units unknown) (unknown) (unknown) (no date) (unknown) (unknown) Intake Note: (units unknown) (unknown) (unknown) (no date) (unknown) (unknown) Intake performed by: Meena Miller (units unknown) (unknown) (unknown) (no date) (unknown) (unknown) Intake (units unknown) (unknown) (unknown) (no date) (unknown) (unknown) Intake- Clincial Staff (units unknown) (unknown) (unknown) (no date) (unknown) (unknown) [facility] (units unknown) (unknown) (unknown) (no date) (unknown) (unknown) Kidney stones (units unknown) (unknown) (unknown) (no date) (unknown) (unknown) Knee pain (units unknown) (unknown) (unknown) (no date) (unknown) (unknown) Loc: [facility] (units unknown) (unknown) (unknown) (no date) (unknown) (unknown) Lower urinary tract symptoms (LUTS) (units unknown) (unknown) (unknown) (no date) (unknown) (unknown) Medical History (Updated 10/21/22 @ 11:11 by Crystal Condon MD) (units unknown) (unknown) (unknown) (no date) (unknown) (unknown) Medications (units unknown) (unknown) (unknown) (no date) (unknown) (unknown) Mother Cancer (units unknown) (unknown) (unknown) (no date) (unknown) (unknown) No Known Drug Allerg ies Allergy (Verified 12/16/22 11:03) (units unknown) (unknown) (unknown) (no date) (unknown) (unknown) VISHNU (obstructive sle ep apnea) (units unknown) (unknown) (unknown) (no date) (unknown) (unknown) PFSH (units unknown) (unknown) (unknown) (no date) (unknown) (unknown) PTSD (post-traumatic stress disorder) (units unknown) (unknown) (unknown) (no date) (unknown) (unknown) Patient: Esdras Stephen Jr MR (units unknown) (unknown) (unknown) (no date) (unknown) (unknown) Position Sitting (units unknown) (unknown) (unknown) (no date) (unknown) (unknown) Pulse 96 H (units unknown) (unknown) (unknown) (no date) (unknown) (unknown) Reason For Visit (units unknown) (unknown) (unknown) (no date) (unknown) (unknown) Seizure disorder (units unknown) (unknown) (unknown) (no date) (unknown) (unknown) Signed By: (units unknown) (unknown) (unknown) (no date) (unknown) (unknown) Smoking Status: Freddy hopkins smoker (units unknown) (unknown) (unknown) (no date) (unknown) (unknown) Social History (units unknown) (unknown) (unknown) (no date) (unknown) (unknown) Surgical History (units unknown) (unknown) (unknown) (no date) (unknown) (unknown) This note may have b een all or partially generated using voice recognition (units unknown) (unknown) (unknown) (no date) (unknown) (unknown) Tobacco Status (units unknown) (unknown) (unknown) (no date) (unknown) (unknown) Urge incontinence (units unknown) (unknown) (unknown) (no date) (unknown) (unknown) Urology Office Visit (units unknown) (unknown) (unknown) (no date) (unknown) (unknown) Visit Reasons: 6-8WK OV, PSA (units unknown) (unknown) (unknown) (no date) (unknown) (unknown) Vitals (units unknown) (unknown) (unknown) (no date) (unknown) (unknown) [History Confirmed 12/16/22] (units unknown) (unknown) (unknown) (no date) (unknown) (unknown) allopurinol 300 mg tablet 300 mg PO QPM 08/23/19 [History Confirmed 12/16/22] (units unknown) (unknown) (unknown) (no date) (unknown) (unknown) bupropion HCl 300 mg 24 hr tablet, extended release 300 mg PO QAM 08/23/19 (units unknown) (unknown) (unknown) (no date) (unknown) (unknown) have occurred. If th ere are any questions, please contact the Medical Records (units unknown) (unknown) (unknown) (no date) (unknown) (unknown) hydrochlorothiazide 12.5 mg tablet 12.5 mg PO DAILY 08/23/19 [History Confirmed (units unknown) (unknown) (unknown) (no date) (unknown) (unknown) marital status: (units unknown) (unknown) (unknown) (no date) (unknown) (unknown) may occur. Occasiona l wrong-word or 'sound-alike' substitutions may have (units unknown) (unknown) (unknown) (no date) (unknown) (unknown) number of children: 5 (units unknown) (unknown) (unknown) (no date) (unknown) (unknown) occurred due to the inherent limitations of voice recognition software. Please (units unknown) (unknown) (unknown) (no date) (unknown) (unknown) omeprazole 20 mg tablet,delayed release 20 mg PO DAILY 08/23/19 [History (units unknown) (unknown) (unknown) (no date) (unknown) (unknown) potassium citrate 1 tab PO DAILY 08/23/19 [History Confirmed 12/16/22] (units unknown) (unknown) (unknown) (no date) (unknown) (unknown) prazosin 1 mg capsul e 5 mg PO BEDTIME 10/21/22 [History Confirmed 12/16/22] (units unknown) (unknown) (unknown) (no date) (unknown) (unknown) read the note carefu lly and recognize, using context, where these substitutions (units unknown) (unknown) (unknown) (no date) (unknown) (unknown) software. Although every effort is made to edit content, phthalic acid purifier errors (units unknown) (unknown) (unknown) (no date) (unknown) (unknown) tamsulosin 0.4 mg capsule 0.4 mg PO BEDTIME 10/21/22 [History Confirmed (units unknown) (unknown) (unknown) (no date) (unknown) (unknown) trazodone 100 mg tab let 100 mg PO BEDTIME 08/23/19 [History Confirmed 12/16/22] (units unknown) (unknown) Result panel 10 (unknown) (no date) (unknown) (unknown) (no value) (units unknown) (unknown) (unknown) (no date) (unknown) (unknown) #: [id number] (units unknown) (unknown) (unknown) (no date) (unknown) (unknown) (1) Lower urinary tr act symptoms (LUTS): (units unknown) (unknown) (unknown) (no date) (unknown) (unknown) (2) History of nephrolithiasis: (units unknown) (unknown) (unknown) (no date) (unknown) (unknown) (3) Urge incontinence: (units unknown) (unknown) (unknown) (no date) (unknown) (unknown) 12/16/22 1133 (units unknown) (unknown) (unknown) (no date) (unknown) (unknown) 12/16/22 (units unknown) (unknown) (unknown) (no date) (unknown) (unknown) 12/16/22] (units unknown) (unknown) (unknown) (no date) (unknown) (unknown) 1. Return to [facility] in approximately 3 months for clinical update and (units unknown) (unknown) (unknown) (no date) (unknown) (unknown) 11:04 (units unknown) (unknown) (unknown) (no date) (unknown) (unknown) 2. Adopt and impleme nt technique of timed voiding. Rationale and technique (units unknown) (unknown) (unknown) (no date) (unknown) (unknown) 3. Referral to [facility] is physical therapy for assessment of pelvic floor and (units unknown) (unknown) (unknown) (no date) (unknown) (unknown) 4. Consider beta 3 agonist trial. (units unknown) (unknown) (unknown) (no date) (unknown) (unknown) 47 year old male presents to clinic for a 6-8 week follow up with PSA review. (units unknown) (unknown) (unknown) (no date) (unknown) (unknown) ADD (attention defic it disorder) (units unknown) (unknown) (unknown) (no date) (unknown) (unknown) Age/Sex: 47 / M Date of Service: (units unknown) (unknown) (unknown) (no date) (unknown) (unknown) Allergies (units unknown) (unknown) (unknown) (no date) (unknown) (unknown) [place], [place] [id number] (units unknown) (unknown) (unknown) (no date) (unknown) (unknown) Arthritis (units unknown) (unknown) (unknown) (no date) (unknown) (unknown) Assessment + Plan (units unknown) (unknown) (unknown) (no date) (unknown) (unknown) Attending Dr: Crystal Condon MD (units unknown) (unknown) (unknown) (no date) (unknown) (unknown) BP 134/80 (units unknown) (unknown) (unknown) (no date) (unknown) (unknown) Blood Pressure Locat ion Rt brachial (units unknown) (unknown) (unknown) (no date) (unknown) (unknown) Chest pain (units unknown) (unknown) (unknown) (no date) (unknown) (unknown) Chief Complaint (units unknown) (unknown) (unknown) (no date) (unknown) (unknown) Chief Complaint: Low er urinary tract symptoms (units unknown) (unknown) (unknown) (no date) (unknown) (unknown) Code(s): (units unknown) (unknown) (unknown) (no date) (unknown) (unknown) Confirmed 12/16/22] (units unknown) (unknown) (unknown) (no date) (unknown) (unknown) : 1975 Acct:[id number] (units unknown) (unknown) (unknown) (no date) (unknown) (unknown) Depression (units unknown) (unknown) (unknown) (no date) (unknown) (unknown) Dept at . (units unknown) (unknown) (unknown) (no date) (unknown) (unknown) Details: (units unknown) (unknown) (unknown) (no date) (unknown) (unknown) Discussed possible options going forward, including timed voiding, physical (units unknown) (unknown) (unknown) (no date) (unknown) (unknown) Documented By: Crystal Condon MD 12/16/22 1057 (units unknown) (unknown) (unknown) (no date) (unknown) (unknown) Encounter documentation, and billing-10 minutes (units unknown) (unknown) (unknown) (no date) (unknown) (unknown) Exam Narrative (units unknown) (unknown) (unknown) (no date) (unknown) (unknown) Exam Narrative: (units unknown) (unknown) (unknown) (no date) (unknown) (unknown) Exam (units unknown) (unknown) (unknown) (no date) (unknown) (unknown) Bzwb-fs-egze encounter-25 minutes (units unknown) (unknown) (unknown) (no date) (unknown) (unknown) Family History (units unknown) (unknown) (unknown) (no date) (unknown) (unknown) Father Cancer (units unknown) (unknown) (unknown) (no date) (unknown) (unknown) GERD (gastroesophage al reflux disease) (units unknown) (unknown) (unknown) (no date) (unknown) (unknown) H/O right knee surgery (units unknown) (unknown) (unknown) (no date) (unknown) (unknown) H/O shoulder surgery (units unknown) (unknown) (unknown) (no date) (unknown) (unknown) H/O vasectomy (units unknown) (unknown) (unknown) (no date) (unknown) (unknown) HPI (units unknown) (unknown) (unknown) (no date) (unknown) (unknown) History of knee surgery (units unknown) (unknown) (unknown) (no date) (unknown) (unknown) History of nephrolithiasis (units unknown) (unknown) (unknown) (no date) (unknown) (unknown) Hx of nephrolithotom y with removal of calculi (units unknown) (unknown) (unknown) (no date) (unknown) (unknown) IRRITANT GUIDELINES provided at last encounter. (units unknown) (unknown) (unknown) (no date) (unknown) (unknown) Intake Note: (units unknown) (unknown) (unknown) (no date) (unknown) (unknown) Intake performed by: Meena Miller (units unknown) (unknown) (unknown) (no date) (unknown) (unknown) Intake (units unknown) (unknown) (unknown) (no date) (unknown) (unknown) Intake- Clincial Staff (units unknown) (unknown) (unknown) (no date) (unknown) (unknown) [facility] (units unknown) (unknown) (unknown) (no date) (unknown) (unknown) Kidney stones (units unknown) (unknown) (unknown) (no date) (unknown) (unknown) Knee pain (units unknown) (unknown) (unknown) (no date) (unknown) (unknown) Loc: [facility] (units unknown) (unknown) (unknown) (no date) (unknown) (unknown) Lower urinary tract symptoms (LUTS) (units unknown) (unknown) (unknown) (no date) (unknown) (unknown) Medical History (units unknown) (unknown) (unknown) (no date) (unknown) (unknown) Medications (units unknown) (unknown) (unknown) (no date) (unknown) (unknown) Mother Cancer (units unknown) (unknown) (unknown) (no date) (unknown) (unknown) N39.41 - Urge incontinence (units unknown) (unknown) (unknown) (no date) (unknown) (unknown) No Known Drug Allerg ies Allergy (Verified 12/16/22 11:03) (units unknown) (unknown) (unknown) (no date) (unknown) (unknown) Not repeated today. (units unknown) (unknown) (unknown) (no date) (unknown) (unknown) VISHNU (obstructive sle ep apnea) (units unknown) (unknown) (unknown) (no date) (unknown) (unknown) PFSH (units unknown) (unknown) (unknown) (no date) (unknown) (unknown) PTSD (post-traumatic stress disorder) (units unknown) (unknown) (unknown) (no date) (unknown) (unknown) PVR. (units unknown) (unknown) (unknown) (no date) (unknown) (unknown) Patient admits he di d not seriously review or tried to apply the DIETARY (units unknown) (unknown) (unknown) (no date) (unknown) (unknown) Patient: Esdras Stephen Jr MR (units unknown) (unknown) (unknown) (no date) (unknown) (unknown) Plan (units unknown) (unknown) (unknown) (no date) (unknown) (unknown) Position Sitting (units unknown) (unknown) (unknown) (no date) (unknown) (unknown) Pulse 96 H (units unknown) (unknown) (unknown) (no date) (unknown) (unknown) R39.9 - Unspecified symptoms and signs involving the genitourinary system (units unknown) (unknown) (unknown) (no date) (unknown) (unknown) Ian returns today fo r follow-up of urinary urgency and frequency. Tamsulosin (units unknown) (unknown) (unknown) (no date) (unknown) (unknown) Reason For Visit (units unknown) (unknown) (unknown) (no date) (unknown) (unknown) Review of clinical chart note history, patient data for encounter-5 minutes (units unknown) (unknown) (unknown) (no date) (unknown) (unknown) Reviewed findings, discussed impression, discussed options, and rationale for (units unknown) (unknown) (unknown) (no date) (unknown) (unknown) Seizure disorder (units unknown) (unknown) (unknown) (no date) (unknown) (unknown) Signed By: <Electronically signed by Crystal Condon MD> (units unknown) (unknown) (unknown) (no date) (unknown) (unknown) Signed (units unknown) (unknown) (unknown) (no date) (unknown) (unknown) Smoking Status: Freddy hopkins smoker (units unknown) (unknown) (unknown) (no date) (unknown) (unknown) Social History (units unknown) (unknown) (unknown) (no date) (unknown) (unknown) Status: Acute (units unknown) (unknown) (unknown) (no date) (unknown) (unknown) Surgical History (units unknown) (unknown) (unknown) (no date) (unknown) (unknown) This note may have b een all or partially generated using voice recognition (units unknown) (unknown) (unknown) (no date) (unknown) (unknown) Tobacco Status (units unknown) (unknown) (unknown) (no date) (unknown) (unknown) Urge incontinence (units unknown) (unknown) (unknown) (no date) (unknown) (unknown) Urology Office Visit (units unknown) (unknown) (unknown) (no date) (unknown) (unknown) Visit Reasons: 6-8WK OV, PSA (units unknown) (unknown) (unknown) (no date) (unknown) (unknown) Vitals (units unknown) (unknown) (unknown) (no date) (unknown) (unknown) Z87.442 - Personal history of urinary calculi (units unknown) (unknown) (unknown) (no date) (unknown) (unknown) [History Confirmed 12/16/22] (units unknown) (unknown) (unknown) (no date) (unknown) (unknown) above investigations and follow-up. (units unknown) (unknown) (unknown) (no date) (unknown) (unknown) allopurinol 300 mg tablet 300 mg PO QPM 08/23/19 [History Confirmed 12/16/22] (units unknown) (unknown) (unknown) (no date) (unknown) (unknown) ay occur. Occasional wrong-word or 'sound-alike' substitutions may have (units unknown) (unknown) (unknown) (no date) (unknown) (unknown) between need to void and urge incontinence of a proximally 5 minutes. He is (units unknown) (unknown) (unknown) (no date) (unknown) (unknown) bupropion HCl 300 mg 24 hr tablet, extended release 300 mg PO QAM 08/23/19 (units unknown) (unknown) (unknown) (no date) (unknown) (unknown) core strength and Rx for same. (units unknown) (unknown) (unknown) (no date) (unknown) (unknown) currently undergoing aquatic physical therapy with [facility]. PSA 12/02/2022, (units unknown) (unknown) (unknown) (no date) (unknown) (unknown) dosing 1/2 hour afte r breakfast continues to address his complaints of (units unknown) (unknown) (unknown) (no date) (unknown) (unknown) explained today. Informed him that there are phone half that provide a program (units unknown) (unknown) (unknown) (no date) (unknown) (unknown) frequency. He contin ues to have concerns regarding urgency with a time interval (units unknown) (unknown) (unknown) (no date) (unknown) (unknown) have occurred. If th ere are any questions, please contact the Medical Records (units unknown) (unknown) (unknown) (no date) (unknown) (unknown) hydrochlorothiazide 12.5 mg tablet 12.5 mg PO DAILY 08/23/19 [History Confirmed (units unknown) (unknown) (unknown) (no date) (unknown) (unknown) marital status: (units unknown) (unknown) (unknown) (no date) (unknown) (unknown) number of children: 5 (units unknown) (unknown) (unknown) (no date) (unknown) (unknown) occurred due to the inherent limitations of voice recognition software. Please (units unknown) (unknown) (unknown) (no date) (unknown) (unknown) omeprazole 20 mg tablet,delayed release 20 mg PO DAILY 08/23/19 [History (units unknown) (unknown) (unknown) (no date) (unknown) (unknown) oval time as a reminder. (units unknown) (unknown) (unknown) (no date) (unknown) (unknown) potassium citrate 1 tab PO DAILY 08/23/19 [History Confirmed 12/16/22] (units unknown) (unknown) (unknown) (no date) (unknown) (unknown) prazosin 1 mg capsul e 5 mg PO BEDTIME 10/21/22 [History Confirmed 12/16/22] (units unknown) (unknown) (unknown) (no date) (unknown) (unknown) read the note carefu lly and recognize, using context, where these substitutions (units unknown) (unknown) (unknown) (no date) (unknown) (unknown) software. Although every effort is made to edit content, phthalic acid purifier errors m (units unknown) (unknown) (unknown) (no date) (unknown) (unknown) tamsulosin 0.4 mg capsule 0.4 mg PO BEDTIME 10/21/22 [History Confirmed (units unknown) (unknown) (unknown) (no date) (unknown) (unknown) therapy, or pharmacologic trials. Discussed pros and cons of each. (units unknown) (unknown) (unknown) (no date) (unknown) (unknown) trazodone 100 mg tab let 100 mg PO BEDTIME 08/23/19 [History Confirmed 12/16/22] (units unknown) (unknown) (unknown) (no date) (unknown) (unknown) was 1.689. Explained result and interpretation. (units unknown) (unknown) Social History date description facility 2022-10-21 00:00 Never smoked tobacco (finding) [facility] 2022-12-16 00:00 Never smoked tobacco (finding) [facility] Vital Signs date measurement value units 2022-10-21 00:00 BMI 33.5 kg/m2 2022-10-21 00:00 BP_diastolic 76 mmHg 2022-10-21 00:00 BP_systolic 116 mmHg 2022-10-21 00:00 heart_rate 95 /min 2022-10-21 00:00 height_metric 180.34 cm 2022-10-21 00:00 height_standard 71 in 2022-10-21 00:00 o2_saturation 96 % 2022-10-21 00:00 respiration_rate 16 /min 2022-10-21 00:00 weight_metric 108.86 kg 2022-10-21 00:00 weight_standard 240 lb 2022-12-16 00:00 BP_diastolic 80 mmHg 2022-12-16 00:00 BP_systolic 134 mmHg 2022-12-16 00:00 heart_rate 96 /min
[2022-12-23] MEDS ORDERED: KETOROLAC 30 MG/ML VIAL IVP STA (22:23)
[2022-12-23] MEDS ORDERED: SODIUM CHLORIDE 0.9% 1,000 ML IV STA (22:23)
[2022-12-23 22:34] LABS: BASOPHILS # (AUTO) 0.1 10^3/uL (0.0-0.1); BASOPHILS % (AUTO) 0.8 %; EOSINOPHILS # (AUTO) 0.4 10^3/uL (0.0-0.7); EOSINOPHILS % (AUTO) 4.7 %; HCT - HEMATOCRIT 42.6 % (42.0-52.0); HGB - HEMOGLOBIN 14.4 g/dL (14.0-18.0); LYMPHOCYTES # (AUTO) 2.5 10^3/uL (1.5-3.5); LYMPHOCYTES % (AUTO) 29.5 %; MEAN CORPUSCULAR HEMOGLOBIN 28.5 pg (27.0-31.0); MEAN CORPUSCULAR HGB CONC 33.8 g/dL (32.0-36.0); MEAN CORPUSCULAR VOLUME 84.4 fL (80.0-94.0); MEAN PLATELET VOLUME 8.8 fL (7.4-11.4); MONOCYTES # (AUTO) 0.7 10^3/uL (0.0-1.0); MONOCYTES % (AUTO) 8.7 %; NEUTROPHILS # (AUTO) 4.7 10^3/uL (1.5-6.6); NEUTROPHILS % (AUTO) 55.9 %; PLT - PLATELET COUNT 295 10^3/uL (130-450); RED BLOOD COUNT 5.05 10^6/uL (4.70-6.10); WHITE BLOOD COUNT 8.4 x10^3/uL (4.8-10.8)
[2022-12-23 22:47] LABS: ALBUMIN 3.9 g/dL (3.2-5.5); ALBUMIN/GLOBULIN RATIO 1.3 (1.0-2.2); BILIRUBIN,TOTAL 0.7 mg/dL (0.2-1.0); CALCIUM 8.5 mg/dL (8.5-10.3); CREATININE 1.2 mg/dL (0.6-1.2); POTASSIUM 3.4 mmol/L (3.5-5.0)
[2022-12-23] MEDS ORDERED: HYDROmorphone 1 MG/ML CARPUJECT IVP STA (22:49)
--- NOTE | 2022-12-23 23:37 | ED Physician Documentation ---
History of Present Illness - Stated complaint Stated Complaint: SYNCOPE - Chief complaint Chief Complaint: General - History obtained from History obtained from: Patient, Family, EMS - Additonal information Additional information: PT comes to the ED via EMS for CC of syncopal episode after laughing. Pt has a known condition in which this happens to him regularly, and he feels weak afterward. However, his general weakness has lasted longer than usual, so he decided to come get checked out. No other unusual symptoms. No CP, SOB, or vomiting. No recent illness. No fever/chills. PD PAST MEDICAL HISTORY - Past Medical History Cardiovascular: None Respiratory: None Neuro: Head injury Endocrine/Autoimmune: None GI: GERD : Kidney stones HEENT: None Psych: Anxiety, Post traumatic stress disorder Musculoskeletal: Osteoarthritis, Chronic back pain Derm: None - Past Surgical History Past Surgical History: No - Present Medications Home Medications: Ambulatory Orders Medication Instructions Recorded Confirmed Omeprazole 20 mg PO DAILY 05/31/18 08/08/20 Potassium Citrate [Potassium 15 meq PO DAILY 05/31/18 08/08/20 Citrate ER] allopurinoL [Allopurinol] 300 mg PO DAILY 05/31/18 08/08/20 buPROPion [Wellbutrin Sr] 100 mg PO BID 05/31/18 08/08/20 hydroCHLOROthiazide 12.5 mg PO DAILY 05/31/18 08/08/20 [Hydrochlorothiazide] traZODone [Desyrel] 50 mg PO HS 05/31/18 08/08/20 Prazosin HCl 1 mg PO DAILY 10/02/18 08/08/20 Melatonin 6 mg PO HS 08/08/20 08/08/20 Oxycodone HCl/Acetaminophen 1 - 2 each PO Q6H PRN #14 tablet 06/14/22 [Percocet 5-325 mg Tablet] Amoxicillin 500 mg PO TID #30 cap 09/05/22 Benzonatate [Tessalon] 200 mg PO TID PRN #20 cap 09/05/22 Oxycodone HCl/Acetaminophen 1 - 2 each PO Q6H PRN #10 tablet 09/05/22 [Percocet 5-325 mg Tablet] - Allergies Allergies/Adverse Reactions: Allergies Allergy/AdvReac Type Severity Reaction Status Date / Time No Known Drug Allergies Allergy Verified 12/23/22 22:37 - Social History Does the pt smoke?: No Smoking Status: Never smoker Does the pt drink ETOH?: Yes Does the pt have substance abuse?: No - Immunizations Immunizations are current?: Yes - POLST Patient has POLST: No PD ED PE NORMAL - Vitals Vital signs reviewed: Yes - General General: Alert and oriented X 3, No acute distress, Well developed/nourished - HEENT HEENT: Atraumatic, PERRL, EOMI, Moist mucous membranes - Neck Neck: Supple, no meningeal sign - Cardiac Cardiac: RRR, No murmur, Strong equal pulses - Respiratory Respiratory: No respiratory distress, Clear bilaterally - Abdomen Abdomen: Soft, Non tender, Non distended - Derm Derm: Normal color, Warm and dry, No rash - Extremities Extremities: No deformity, No edema - Neuro Neuro: Alert and oriented X 3, food demonstrator 2-12 intact, No motor deficit, No sensory deficit, Normal speech - Psych Psych: Normal mood, Normal affect Results - Vitals Vitals: Oxygen O2 Source Room air - EKG (time done) 2253 EKG releavant findings:: EKG personally interpreted by author of this note. Relevant findings are: Rate: Rate (enter#) (74) Rhythm: NSR Holden: Normal Intervals: Normal RI QRS: Normal Ischemia: Normal ST segments Compare to prior EKG: Old EKG unavailable Computer interpretation: Agree with computer - Labs Labs: Laboratory Tests 12/23/22 12/23/22 22:30 22:30 WBC 8.4 RBC 5.05 Hgb 14.4 Hct 42.6 MCV 84.4 MCH 28.5 MCHC 33.8 RDW 13.0 Plt Count 295 MPV 8.8 Neut # (Auto) 4.7 Lymph # (Auto) 2.5 [place] # (Auto) 0.7 Eos # (Auto) 0.4 Baso # (Auto) 0.1 Absolute Nucleated RBC 0.00 Nucleated RBC % 0.0 Sodium 136 Potassium 3.4 L Chloride 104 Carbon Dioxide 26 Anion Gap 6.0 BUN 8 Creatinine 1.2 Estimated GFR (MDRD) 65 L Glucose 88 Calcium 8.5 Total Bilirubin 0.7 AST 33 ALT 23 Alkaline Phosphatase 49 Total Protein 7.0 Albumin 3.9 Globulin 3.1 Albumin/Globulin Ratio 1.3 Lipase 31 PD Medical Decision Making - ED course Complexity details: reviewed results, re-evaluated patient, considered differential, d/w patient, d/w family ED course: The pt was well-appearing in the ED. He was treated with IV fluids and worked u p with labs and EKG, which were unremarkable. The pt was feeling better and I felt he was stable for d/c home. Departure - Departure Disposition: Home, Self Care Clinical Impression: Headache Qualifiers: Headache type: unspecified Headache chronicity pattern: acute headache Intractability: not intractable Qualified Code(s): R51.9 - Headache, unspecified Syncope Qualifiers: Syncope type: unspecified Qualified Code(s): R55 - Syncope and collapse Condition: Stable Instructions: ED Cephalgia Unspecified, ED Syncope Vasovagal Comments: Your labs and EKG look good. There is no evidence of a serious cause of your symptoms today. Please follow-up with your primary doctor as needed. You have been treated with sedating medication in the emergency department and should not drive for 6 to 8 hours. Discharge Date/Time: 12/23/22 23:48
[2022-12-23 23:52] VITALS: BP 120/99
== END 2022-12-23 23:48 | disposition home or self-care (01) ==
LOC: EDUNIT# → ED 22:07
DX: R55 Syncope and collapse (principal); R51.9 Headache, unspecified
CPT/HCPCS: 36415; 80053; 83690; 85025; 93005; 96374; 96375; 99283; 99284; J1170

== ENCOUNTER 2023-01-22 15:29 | Emergency (ER) | payer OTHER ==
[2023-01-22 15:42] VITALS: BP 145/85
--- NOTE | 2023-01-22 15:46 | ED Physician Documentation ---
PD HPI UPPER EXT INJURY - Stated complaint Stated Complaint: LT WRIST PX - Chief complaint Chief Complaint: Ext Problem - History obtained from History obtained from: Patient (47-year-old [id number] male fell a few days ago onto an outstretched wrist and has pain in the anterior left wrist since then. Comes and goes kind of. No other injuries.) PD PAST MEDICAL HISTORY - Past Medical History Cardiovascular: None Respiratory: None Neuro: Head injury Endocrine/Autoimmune: None GI: GERD : Kidney stones HEENT: None Psych: Anxiety, Post traumatic stress disorder Musculoskeletal: Osteoarthritis, Chronic back pain Derm: None - Past Surgical History Past Surgical History: No - Present Medications Home Medications: Ambulatory Orders Medication Instructions Recorded Confirmed Omeprazole 20 mg PO DAILY 05/31/18 08/08/20 Potassium Citrate [Potassium 15 meq PO DAILY 05/31/18 08/08/20 Citrate ER] allopurinoL [Allopurinol] 300 mg PO DAILY 05/31/18 08/08/20 buPROPion [Wellbutrin Sr] 100 mg PO BID 05/31/18 08/08/20 hydroCHLOROthiazide 12.5 mg PO DAILY 05/31/18 08/08/20 [Hydrochlorothiazide] traZODone [Desyrel] 50 mg PO HS 05/31/18 08/08/20 Prazosin HCl 1 mg PO DAILY 10/02/18 08/08/20 Melatonin 6 mg PO HS 08/08/20 08/08/20 Meloxicam [Mobic] 7.5 mg PO BID PRN #20 tablet 01/22/23 Tamsulosin [Flomax] 1 cap PO DAILY 01/22/23 - Allergies Allergies/Adverse Reactions: Allergies Allergy/AdvReac Type Severity Reaction Status Date / Time No Known Drug Allergies Allergy Verified 01/22/23 15:39 - Social History Does the pt smoke?: No Smoking Status: Never smoker Does the pt drink ETOH?: Yes Does the pt have substance abuse?: No - Immunizations Immunizations are current?: Yes - POLST Patient has POLST: No PD ED PE NORMAL - Vitals Vital signs reviewed: Yes - General General: Alert and oriented X 3, No acute distress - Extremities Extremities: Other (Mild tenderness just proximal to the carpal tunnel but not at the carpal tunnel of the left wrist. Dorsally the wrist is nontender. He is a lot of pain with flexion extension though. No hand tenderness.) - Neuro Neuro: Alert and oriented X 3, Normal speech Results - Vitals Vitals: Vital Signs - 24 hr 01/22/23 15:31 Temperature 36.7 C Heart Rate 90 Respiratory 18 Rate Blood Pressure 145/85 H O2 Saturation 96 Oxygen O2 Source Room air - Rads (name of study) 4 view x-ray of the left wrist is unremarkable. Relevant Findings:: Final report received, EMP independent interpretation of test PD Medical Decision Making - ED course ED course: 47-year-old with a wrist injury, but further history says he has been going on longer than that. Actually seems more like a tendinitis than anything else. Relevant x-rays were negative and he was put into a Velcro wrist splint. Departure - Departure Disposition: 01 Home, Self Care Clinical Impression: Left wrist tendinitis Condition: Good Record reviewed to determine appropriate education?: Yes Instructions: ED Sprain Wrist Prescriptions: Meloxicam [Mobic] 7.5 mg PO BID PRN #20 tablet PRN Reason: Pain Comments: X-rays were negative. I think you have a tendinitis of the left wrist. Generally rest it and I am prescribing some anti-inflammatories. Follow-up with your doctor in a week if not better. Return for new or worsening symptoms. Forms: PCP List Discharge Date/Time: 01/22/23 17:01
--- NOTE | 2023-01-22 16:32 | XRAY Report ---
PROCEDURE: Wrist 4 View LT INDICATIONS: wrist inj TECHNIQUE: 3 views of the wrist were acquired. COMPARISON: None. FINDINGS: Bones: No fractures or dislocations. No suspicious bony lesions. Soft tissues: No suspicious soft tissue calcifications or masses. IMPRESSION: No acute bony abnormality. If there is anatomic snuff box tenderness, consider wrist immobilization a nd repeat radiographs in 10-14 days or cross-sectional imaging now. If pain persists with conservativ e management, consider repeat radiographs in 10-14 days or cross-sectional imaging. Reviewed by: Liborio Sanz MD on 01/22/2023 4:30 PM PDT Approved by: Liborio Sanz MD on 01/22/2023 4:30 PM PDT Station ID: [id number]
== END 2023-01-22 17:01 | disposition home or self-care (01) ==
LOC: ED 15:29
DX: M77.8 Other enthesopathies, not elsewhere classified (principal)
CPT/HCPCS: 99283; 99284

== ENCOUNTER 2023-02-06 14:55 | Outpatient (CLI) | payer OTHER | END 2023-02-06 23:59 | disposition EMS.NT | LOC: EMS 14:55 | DX: R55 Syncope and collapse (principal) ==

== ENCOUNTER 2023-04-28 18:40 | Outpatient (CLI) | payer OTHER | END 2023-04-28 18:41 | disposition EMS.NT | LOC: EMS 18:40 | DX: R55 Syncope and collapse (principal) ==

== ENCOUNTER 2023-10-15 10:42 | Outpatient (CLI) | payer OTHER ==
--- NOTE | 2023-10-15 13:20 | MRI Report ---
PROCEDURE: Lumbar Spine WO INDICATIONS: LOW BACK PAIN TECHNIQUE: Noncontrast sagittal T1 spin echo and T2 fast echo, sagittal STIR, axial T1 and T2 fast spin echo thr ough the lumbar spine. In cases with scoliosis, additional coronal T2 fast spin echo may be performe d. COMPARISON: Correlation is made with abdomen and pelvis CT dated 06/13/2022. FINDINGS: Image quality: Diagnostic, with note made of motion artifact. Alignment and Curvature: There is minimal to mild retrolisthesis seen at L5-S1. Bone Marrow: Marrow is of normal overall signal. No acute vertebral body compression fractures. Spinal Cord: Conus medullaris terminates at the L1 level. Visualized cord demonstrates normal signa l and size. Paraspinous Soft Tissues: No paravertebral masses. T12-L1: Normal in appearance. L1-L2: Normal in appearance. L2-L3: Normal in appearance. L3-L4: Normal in appearance. L4-L5: The disc height and disc signal are well preserved. Mild disc bulge is seen. Mild facet hypertrophy is seen. Mild to moderate bilateral neuroforaminal narrowing is seen. No central canal n arrowing is seen. L5-S1: At least moderate loss of disc height and disc signal can be seen. Reactive marrow endplate changes are seen, which are hyperintense on T1-weighted and T2-weighted imaging, without significant increased STIR signal. 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 Moderate disc bulge is seen at this level. There is a central/right disc protrusion. M ild facet hypertrophy is seen. Moderate to severe bilateral neural foraminal narrowing can be seen, w ith associated compression upon the exiting nerve roots. Mild central canal narrowing is seen. IMPRESSION: Focal L5-S1 degenerative change can be seen. Reviewed by: Cliff Estevez MD on 10/15/2023 12:19 PM SOL Approved by: Cliff Estevez MD on 10/15/2023 12:19 PM SOL Station ID: [id number]
== END 2023-10-15 10:43 | disposition home or self-care (01) ==
LOC: DI 10:42
PROVIDERS: ATTEND Nurse Practitioner Family
DX: M47.817 Spondylosis without myelopathy or radiculopathy, lumbosacral region (principal)

== ENCOUNTER 2023-10-25 17:00 | Outpatient (CLI) | payer OTHER | END 2023-10-25 23:59 | disposition critical access hospital (66) | LOC: EMS 17:00 | DX: R51.9 Headache, unspecified (principal) | CPT/HCPCS: A0425; A0429 ==

== ENCOUNTER 2023-10-25 17:13 | Emergency (ER) | payer OTHER ==
--- NOTE | 2023-10-25 17:17 | ED Physician Documentation ---
PD HPI HEADACHE - Stated complaint Stated Complaint: HEADACHE - History obtained from History obtained from: Patient, EMS - Additional information Additional information: 47-year-old gentleman with recurrent syncope and headaches developed a rapid onset right posterior headache last night. He rolled out of bed and may have hit his head. He is very light sensitive with it. He says he has a history of chronic headaches but this is the worst headache of his life. He was seen for similar episodes a few times last year. And improved with therapy in the emergency department. Brought in by ambulance and prehospital reported GCS of 11, but he is GCS 15 here. He is just hesitant to talk because of the severity of the pain. PD PAST MEDICAL HISTORY - Past Medical History Cardiovascular: None Respiratory: None Neuro: Head injury Endocrine/Autoimmune: None GI: GERD : Kidney stones HEENT: None Psych: Anxiety, Post traumatic stress disorder Musculoskeletal: Osteoarthritis, Chronic back pain Derm: None - Past Surgical History Past Surgical History: No - Present Medications Home Medications: Ambulatory Orders Medication Instructions Recorded Confirmed Omeprazole 20 mg PO DAILY 05/31/18 08/08/20 Potassium Citrate [Potassium 15 meq PO DAILY 05/31/18 08/08/20 Citrate ER] allopurinoL [Allopurinol] 300 mg PO DAILY 05/31/18 08/08/20 buPROPion [Wellbutrin Sr] 100 mg PO BID 05/31/18 08/08/20 hydroCHLOROthiazide 12.5 mg PO DAILY 05/31/18 08/08/20 [Hydrochlorothiazide] traZODone [Desyrel] 50 mg PO HS 05/31/18 08/08/20 Prazosin HCl 1 mg PO DAILY 10/02/18 08/08/20 Melatonin 6 mg PO HS 08/08/20 08/08/20 Meloxicam [Mobic] 7.5 mg PO BID PRN #20 tablet 01/22/23 Tamsulosin [Flomax] 1 cap PO DAILY 01/22/23 - Allergies Allergies/Adverse Reactions: Allergies Allergy/AdvReac Type Severity Reaction Status Date / Time gabapentin AdvReac Unknown Verified 10/25/23 17:24 - Social History Does the pt smoke?: No Smoking Status: Never smoker Does the pt drink ETOH?: Yes Does the pt have substance abuse?: No - Immunizations Immunizations are current?: Yes - POLST Patient has POLST: No PD ED PE NORMAL - Vitals Vital signs reviewed: Yes - General General: Alert and oriented X 3, Other (He is questioning a washcloth over his eyes and appears to be having a painful headache.) - HEENT HEENT: PERRL, EOMI - Neck Neck: Supple, no meningeal sign, No bony TTP - Neuro Neuro: Alert and oriented X 3 Eye Opening: Spontaneous Motor: Obeys Commands Verbal: Oriented GCS Score: 15 Results - Vitals Vitals: Vital Signs - 24 hr 10/25/23 10/25/23 10/25/23 17:14 18:42 19:00 Temperature 36.8 C Heart Rate 104 H 82 90 Respiratory 24 18 18 Rate Blood Pressure 141/97 H 125/88 H 126/80 O2 Saturation 97 95 96 Oxygen O2 Source Room air - Labs Labs: Laboratory Tests 10/25/23 10/25/23 10/25/23 17:20 17:20 17:20 WBC 9.8 RBC 5.65 Hgb 15.8 Hct 49.8 MCV 88.1 MCH 28.0 MCHC 31.7 L RDW 13.7 Plt Count 282 MPV 8.1 Neut # (Auto) 6.9 H Lymph # (Auto) 2.0 [place] # (Auto) 0.7 Eos # (Auto) 0.1 Baso # (Auto) 0.1 Absolute Nucleated RBC 0.00 Nucleated RBC % 0.0 PT 11.9 INR 1.1 Sodium 138 Potassium 4.6 H Chloride 103 Carbon Dioxide 30 Anion Gap 5.0 L BUN 12 Creatinine 1.5 H Estimated GFR (MDRD) 51 L Glucose 93 Calcium 10.0 Total Bilirubin 0.8 AST 13 ALT 10 Alkaline Phosphatase 55 Total Protein 7.3 Albumin 4.5 Globulin 2.8 Albumin/Globulin Ratio 1.6 - Rads (name of study) CT/CTA of the head Relevant Findings:: Final report received, EMP independent interpretation of test PD Medical Decision Making - ED course ED course: He has a headache that is particularly severe for him, and sudden onset. There is nothing in the history or physical to suggest meningitis but certainly migraine, cluster headache, and aneurysmal headache are all possibilities. Plain CTA of the head and CT angiography of the head were negative except for a thyroid nodule which was discussed with patient and follow-up advised. After initially some IV Dilaudid he was feeling much better and this was followed by a dose of ketorolac once the plain CT was done showing no blood and he was pain- free. Departure - Departure Disposition: 01 Home, Self Care Clinical Impression: Thyroid nodule Headache Qualifiers: Headache type: unspecified Headache chronicity pattern: acute headache Intractability: not intractable Qualified Code(s): R51.9 - Headache, unspecified Condition: Good Record reviewed to determine appropriate education?: Yes Instructions: ED Headache Migraine Comments: Your brain looks fine and there are no aneurysms. You did have a 2.7 cm left thyroid nodule. Please mention this to your primary care physician and follow- up as they would likely want to get a ultrasound of it in a nonemergent fashion to evaluate it. Your labs are also notable for mildly depressed renal function, this also needs to be followed by your physician. Call your doctor to arrange a follow-up appointment, make the next available appointment. In the interim, return anytime if worse or if new symptoms develop.
[2023-10-25] MEDS: HYDROmorphone 1 MG/ML CARPUJECT IVP STA (17:25)
[2023-10-25 17:27] LABS: BASOPHILS # (AUTO) 0.1 10^3/uL (0.0-0.1); BASOPHILS % (AUTO) 0.5 %; EOSINOPHILS # (AUTO) 0.1 10^3/uL (0.0-0.7); EOSINOPHILS % (AUTO) 1.2 %; HCT - HEMATOCRIT 49.8 % (42.0-52.0); HGB - HEMOGLOBIN 15.8 g/dL (14.0-18.0); LYMPHOCYTES % (AUTO) 20.6 %; MEAN CORPUSCULAR HGB CONC 31.7 g/dL (32.0-36.0); MEAN CORPUSCULAR VOLUME 88.1 fL (80.0-94.0); MEAN PLATELET VOLUME 8.1 fL (7.4-11.4); MONOCYTES # (AUTO) 0.7 10^3/uL (0.0-1.0); MONOCYTES % (AUTO) 6.9 %; NEUTROPHILS # (AUTO) 6.9 10^3/uL (1.5-6.6); NEUTROPHILS % (AUTO) 70.6 %; PLT - PLATELET COUNT 282 10^3/uL (130-450); RED BLOOD COUNT 5.65 10^6/uL (4.70-6.10); RED CELL DISTRIBUTION WIDTH 13.7 % (12.0-15.0); WHITE BLOOD COUNT 9.8 x10^3/uL (4.8-10.8)
[2023-10-25 17:34] LABS: INR 1.1 (0.8-1.2); PT - PROTHROMBIN TIME 11.9 secs (9.9-12.6)
[2023-10-25 17:43] LABS: ALBUMIN 4.5 g/dL (3.2-5.5); ALBUMIN/GLOBULIN RATIO 1.6 (1.0-2.2); BILIRUBIN,TOTAL 0.8 mg/dL (0.2-1.0); CREATININE 1.5 mg/dL (0.6-1.3); POTASSIUM 4.6 mmol/L (3.5-4.5); TOTAL PROTEIN 7.3 g/dL (6.4-8.9)
[2023-10-25] MEDS ORDERED: iohexoL-300 100 ML VIAL ONE (18:00)
[2023-10-25] MEDS: iohexoL-300 100 ML VIAL IVP ONE (18:26)
[2023-10-25] MEDS: KETOROLAC 15 MG/ML VIAL IVP STA (18:35)
--- NOTE | 2023-10-25 18:52 | CT Report ---
PROCEDURE: CT Angio Head INDICATIONS: Worst headache of life. CONTRAST: 80ml omni 300 TECHNIQUE: After the administration of intravenous contrast, 1 mm thick sections acquired through the [place] of [place]. Postcontrast 4.5 mm thick sections then re-acquired from the foramen magnum to the vertex. 3-dimensional pjsutga-hgpfjjhhh-rjvfphotfu (MIP) and/or volume rendering reformats were acquired of t central intracranial vasculature. For radiation dose reduction, the following was used: automate d exposure control, adjustment of mA and/or kV according to patient size. COMPARISON: None. FINDINGS: Image quality: Diagnostic. Anterior circulation: Intracranial internal carotid arteries are normal in size and flow. The flow within the paired anterior cerebral arteries is normal and symmetric. The flow within the middle cer ebral arteries is normal and symmetric. The anterior communicating artery is seen. No aneurysms are seen. Posterior circulation: Visualized portions of the vertebral arteries demonstrate normal caliber, and join to form a normal appearing basilar artery. Flow within the posterior cerebral arteries is norm al and symmetric. No aneurysms are seen. CSF spaces: Ventricles are normal in size and shape. Basal cisterns are patent. No extra-axial flu id collections. Brain: No midline shift. No intracranial bleeds or masses. Meier-white matter interface appears int act. Skull and face: Calvarium and facial bones appear intact, without suspicious lesions. Sinuses: Visualized sinuses and mastoids are clear. Other: 2.7 cm left thyroid nodule. IMPRESSION: No significant intracranial arterial abnormality is seen. 2.7 cm left thyroid nodule. Recommend outpatient thyroid ultrasound for complete characterization. Reviewed by: Lopez Gee MD on 10/25/2023 6:50 PM PDT Approved by: Lopez Gee MD on 10/25/2023 6:50 PM PDT Station ID: [id number]
--- NOTE | 2023-10-25 18:53 | CT Report ---
PROCEDURE: Head WO INDICATIONS: whol TECHNIQUE: Noncontrast 4.5 mm thick angled axial sections acquired from the foramen magnum to the vertex. For r adiation dose reduction, the following was used: automated exposure control, adjustment of mA and/or kV according to patient size. COMPARISON: 09/05/2022. FINDINGS: Image quality: Excellent. CSF spaces: Basal cisterns are patent. No extra-axial fluid collections. Ventricles are normal in size and shape. Brain: No midline shift. No intracranial masses or hemorrhage. Meier-white matter interface is norm al. Skull and face: Calvarium and visualized facial bones are intact, without suspicious lesions. Sinuses: Visualized sinuses and mastoids are clear. IMPRESSION: No acute intracranial pathology. Reviewed by: Lopez Gee MD on 10/25/2023 6:51 PM PDT Approved by: Lopez Gee MD on 10/25/2023 6:51 PM PDT Station ID: [id number]
[2023-10-25 19:15] VITALS: BP 126/80; O2SAT 96
== END 2023-10-25 19:35 | disposition home or self-care (01) ==
LOC: EDUNIT# → ED 17:13
DX: E04.1 Nontoxic single thyroid nodule (principal); R51.9 Headache, unspecified
CPT/HCPCS: 36415; 70450; 70496; 80053; 85025; 85610; 96374; 96375; 99284; J1170; Q9967

== ENCOUNTER 2023-11-03 16:21 | Emergency (ER) | payer OTHER ==
[2023-11-03 17:05] LABS: BASOPHILS # (AUTO) 0.1 10^3/uL (0.0-0.1); BASOPHILS % (AUTO) 0.7 %; EOSINOPHILS # (AUTO) 0.3 10^3/uL (0.0-0.7); EOSINOPHILS % (AUTO) 3.6 %; HCT - HEMATOCRIT 47.3 % (42.0-52.0); HGB - HEMOGLOBIN 15.8 g/dL (14.0-18.0); MEAN CORPUSCULAR HEMOGLOBIN 28.9 pg (27.0-31.0); MEAN CORPUSCULAR HGB CONC 33.4 g/dL (32.0-36.0); MEAN CORPUSCULAR VOLUME 86.6 fL (80.0-94.0); MEAN PLATELET VOLUME 8.3 fL (7.4-11.4); MONOCYTES # (AUTO) 0.5 10^3/uL (0.0-1.0); MONOCYTES % (AUTO) 5.9 %; NEUTROPHILS # (AUTO) 5.3 10^3/uL (1.5-6.6); NEUTROPHILS % (AUTO) 65.4 %; PLT - PLATELET COUNT 285 10^3/uL (130-450); RED BLOOD COUNT 5.46 10^6/uL (4.70-6.10); RED CELL DISTRIBUTION WIDTH 13.2 % (12.0-15.0); WHITE BLOOD COUNT 8.2 x10^3/uL (4.8-10.8)
[2023-11-03 17:19] LABS: ALBUMIN 4.6 g/dL (3.2-5.5); ALBUMIN/GLOBULIN RATIO 1.9 (1.0-2.2); BILIRUBIN,TOTAL 0.7 mg/dL (0.2-1.0); CALCIUM 9.4 mg/dL (8.5-10.3); CREATININE 1.1 mg/dL (0.6-1.3)
[2023-11-03 17:56] LABS: BILIRUBIN,URINE NEGATIVE (NEGATIVE); GLUCOSE, URINE (UA) NEGATIVE (NEGATIVE); KETONES,URINE (UA) NEGATIVE (NEGATIVE); LEUKOCYTE ESTERASE, URINE NEGATIVE (NEGATIVE); NITRITE,URINE NEGATIVE (NEGATIVE); OCCULT BLOOD,URINE NEGATIVE (NEGATIVE); PH,URINE 7.5 PH (5.0-7.5); PROTEIN,URINE NEGATIVE (NEGATIVE); UROBILINOGEN,URINE 2 E.U./dL (NORMAL)
[2023-11-03 18:01] LABS: CLARITY,URINE CLEAR (CLEAR)
--- NOTE | 2023-11-03 18:23 | ED Physician Documentation ---
History of Present Illness - Stated complaint Stated Complaint: CHEST/LOWER BACK/ABD PX,NAUSEA,FARMER - Chief complaint Chief Complaint: General - History obtained from History obtained from: Patient, Family - History of Present Illness Timing: Yesterday Pain level max: 6 Pain level now: 6 - Additonal information Additional information: Patient is a 47-year-old male who presents to the emergency department who complains of allover body pain. He states that he has chest pain, abdominal pain, back pain, neck pain, head pain. He has not taken anything for the pain. He states that he has chronic neck and back pain but worse than usual. He states the abdominal pain is "everywhere. He is unable to describe the pain any further. Patient states that "I feel like a bag of ass". No change with exertion. No change with inspiration. No fevers. No chills. No diarrhea. No constipation. No vomiting but does have some nausea. States that he has chronic back pain. No loss of bowel or bladder control. No IV drug use. No numbness or tingling. Review of Systems Constitutional: denies: Fever, Chills Ears: denies: Ear pain Nose: denies: Rhinorrhea / runny nose, Congestion Respiratory: reports: Cough (Mild, dry) GI: reports: Abdominal Pain (Diffuse), Nausea. denies: Vomiting, Diarrhea, Hematemesis, Bloody / black stool : denies: Dysuria, Frequency, Hesitancy, Incontinent Skin: denies: Rash Musculoskeletal: reports: Back pain (Chronic, radiates up and down his spine.) Neurologic: denies: Focal weakness, Numbness, Headache PD PAST MEDICAL HISTORY - Past Medical History Cardiovascular: None Respiratory: None Neuro: Head injury Endocrine/Autoimmune: None GI: GERD : Kidney stones HEENT: None Psych: Anxiety, Post traumatic stress disorder Musculoskeletal: Osteoarthritis, Chronic back pain Derm: None - Past Surgical History Past Surgical History: No - Present Medications Home Medications: Ambulatory Orders Medication Instructions Recorded Confirmed Omeprazole 20 mg PO DAILY 05/31/18 08/08/20 Potassium Citrate [Potassium 15 meq PO DAILY 05/31/18 08/08/20 Citrate ER] buPROPion [Wellbutrin Sr] 100 mg PO BID 05/31/18 08/08/20 Tamsulosin [Flomax] 1 cap PO DAILY 01/22/23 Sertraline [Zoloft] 100 mg PO DAILY 11/03/23 - Allergies Allergies/Adverse Reactions: Allergies Allergy/AdvReac Type Severity Reaction Status Date / Time gabapentin AdvReac Unknown Verified 11/03/23 16:30 - Social History Does the pt smoke?: No Smoking Status: Never smoker Does the pt drink ETOH?: Yes Does the pt have substance abuse?: No - Immunizations Immunizations are current?: Yes - POLST Patient has POLST: No PD ED PE NORMAL - Vitals Vital signs reviewed: Yes - General General: Alert and oriented X 3, No acute distress - HEENT HEENT: PERRL, Moist mucous membranes - Neck Neck: Supple, no meningeal sign - Cardiac Cardiac: RRR, Strong equal pulses - Respiratory Respiratory: No respiratory distress, Clear bilaterally - Abdomen Abdomen: Soft, Non tender, Non distended - Back Back: No spinal TTP (No midline tenderness to palpation or percussion. 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 Normal great toe extension bilaterally. no saddle anesthesia) Eye Opening: Spontaneous Motor: Obeys Commands Verbal: Oriented GCS Score: 15 - Psych Psych: Normal mood, Normal affect Results - Vitals Vitals: Vital Signs - 24 hr 11/03/23 11/03/23 11/03/23 16:23 17:46 18:42 Temperature 36.8 C Heart Rate 93 84 83 Respiratory 16 16 14 Rate Blood Pressure 129/84 H 135/94 H 118/82 H O2 Saturation 97 97 94 11/03/23 20:25 Temperature Heart Rate 80 Respiratory 18 Rate Blood Pressure 124/87 H O2 Saturation 98 Oxygen O2 Source Room air - EKG (time done) 1637 EKG releavant findings:: EKG personally interpreted by author of this note. Relevant findings are: Rate: Rate (enter#) (90) Rhythm: NSR Arthur: Normal Intervals: Normal [place] QRS: Normal Ischemia: Normal ST segments - Labs Labs: Laboratory Tests 11/03/23 11/03/23 11/03/23 16:40 17:00 17:00 WBC 8.2 RBC 5.46 Hgb 15.8 Hct 47.3 MCV 86.6 MCH 28.9 MCHC 33.4 RDW 13.2 Plt Count 285 MPV 8.3 Neut # (Auto) 5.3 Lymph # (Auto) 2.0 [place] # (Auto) 0.5 Eos # (Auto) 0.3 Baso # (Auto) 0.1 Absolute Nucleated RBC 0.00 Nucleated RBC % 0.0 Sodium 135 Potassium 4.0 Chloride 103 Carbon Dioxide 26 Anion Gap 6.0 BUN 13 Creatinine 1.1 Estimated GFR (MDRD) 72 L Glucose 101 Calcium 9.4 Total Bilirubin 0.7 AST 14 ALT 12 Alkaline Phosphatase 59 Troponin I High Sens Total Protein 7.0 Albumin 4.6 Globulin 2.4 Albumin/Globulin Ratio 1.9 Lipase 19 Urine Color YELLOW Urine Clarity CLEAR Urine pH 7.5 Ur Specific [place] 1.020 Urine Protein NEGATIVE Urine Glucose (UA) NEGATIVE Urine Ketones NEGATIVE Urine Occult Blood NEGATIVE Urine Nitrite NEGATIVE Urine Bilirubin NEGATIVE Urine Urobilinogen 2 H Ur Leukocyte Esterase NEGATIVE Ur Microscopic Review NOT INDICATED Urine Culture Comments NOT INDICATED 11/03/23 17:00 WBC RBC Hgb Hct MCV MCH MCHC RDW Plt Count MPV Neut # (Auto) Lymph # (Auto) [place] # (Auto) Eos # (Auto) Baso # (Auto) Absolute Nucleated RBC Nucleated RBC % Sodium Potassium Chloride Carbon Dioxide Anion Gap BUN Creatinine Estimated GFR (MDRD) Glucose Calcium Total Bilirubin AST ALT Alkaline Phosphatase Troponin I High Sens < 2.3 L Total Protein Albumin Globulin Albumin/Globulin Ratio Lipase Urine Color Urine Clarity Urine pH Ur Specific [place] Urine Protein Urine Glucose (UA) Urine Ketones Urine Occult Blood Urine Nitrite Urine Bilirubin Urine Urobilinogen Ur Leukocyte Esterase Ur Microscopic Review Urine Culture Comments - Rads (name of study) cxr Relevant Findings:: Final report received, See rad report PD Medical Decision Making - ED course Complexity details: reviewed results, re-evaluated patient, considered differential (No ST elevation VT, no aortic dissection, no PE, no tension pneumothorax, no aortic aneurysm), d/w patient ED course: Patient was given IV Toradol and IV Dilaudid. Pain resolved. Feels much better. No acute findings on EKG, chest x-ray, laboratory testing. Unclear etiology of his generalized bodyaches, possible early viral syndrome? No meningeal signs. Afebrile. Patient is very well-appearing, nontoxic. No evidence of PE, aortic dissection. Will have him follow-up with his PCP for further care. Patient counseled regarding signs and symptoms for which I believe and urgent re-evaluation would be necessary. Patient with good understanding of and agreement to plan and is comfortable going home at this time This document was made in part using voice recognition software. While efforts are made to proofread this document, sound alike and grammatical errors may occur. Departure - Departure Disposition: Home, Self Care Clinical Impression: Body aches Chest pain Qualifiers: Chest pain type: unspecified Qualified Code(s): R07.9 - Chest pain, unspecified Condition: Good Instructions: ED Chest Pain Atypical Unkn Cause Follow-Up: GAVIN RANGEL ARNP [Primary Care Provider] - Within 1 week Comments: Please follow-up with your doctor for further care. Please return if you worsen. Make sure you are drinking plenty of fluids at home. Your cardiac testing is normal today. Your CBC, CMP and urinalysis are normal as well. Forms: PCP List Discharge Date/Time: 11/03/23 20:25
[2023-11-03] MEDS: SODIUM CHLORIDE 0.9% 1,000 ML IV STA (18:42)
[2023-11-03] MEDS: KETOROLAC 30 MG/ML VIAL IVP STA (18:42)
[2023-11-03] MEDS: HYDROmorphone 1 MG/ML CARPUJECT IVP STA (19:36)
--- NOTE | 2023-11-03 20:00 | XRAY Report ---
PROCEDURE: Chest 1V INDICATIONS: chest pain TECHNIQUE: One view of the chest was acquired. COMPARISON: Chest x-ray 03/13/2022. FINDINGS: Surgical changes and devices: None. Lungs and pleura: No pleural effusions or pneumothorax. Lungs are clear. Mediastinum: Mediastinal contours appear normal. Heart size is normal. Bones and chest wall: No suspicious bony lesions. Overlying soft tissues appear unremarkable. IMPRESSION: No acute cardiopulmonary process. Reviewed by: Brunilda Rutherford MD on 11/03/2023 7:58 PM PDT Approved by: Brunilda Rutherford MD on 11/03/2023 7:58 PM PDT Station ID: [id number]
[2023-11-03 20:30] VITALS: BP 124/87; O2SAT 98
== END 2023-11-03 20:25 | disposition home or self-care (01) ==
LOC: ED 16:21
DX: R07.9 Chest pain, unspecified (principal); Z87.442 Personal history of urinary calculi; Z79.899 Other long term (current) drug therapy
CPT/HCPCS: 36415; 71045; 80053; 81003; 83690; 84484; 85025; 93005; 96374; 96375; 99284; J1170; 81001; 87086